=== PATIENT | female | born 1975 | race Caucasian/White ===

== ENCOUNTER 2019-06-08 08:40 | Emergency (ER) | payer MEDICAID, SELFPAY ==
[2019-06-08 08:42] VITALS: BP 171/140; PULSE 110; RESP 28; TEMP 36.8; O2SAT 95; BMI 42.9
--- NOTE | 2019-06-08 08:42 | ED_ITS ---
Documented by User: TYRONE Fulton 06/08/19 15:54 HPI - SOB/Dyspnea General: Chief Complaint: Shortness of Breath/Dyspnea Stated Complaint: SOB Time Seen by Provider: 06/08/19 08:42 Source: patient and family Mode of arrival: ambulatory Limitations: no limitations History of Present Illness: HPI Narrative: Patient is a 43-year-old female with a history of asthma, rheumatoid arthritis, lupus, and sarcoidosis who presents to ED today with complaints of a flare ; she states approximately a week ago she began having diffuse pain and thus went to her PCP for evaluation; they placed her on a 10-day prednisone taper (she takes 10 mg prednisone daily for her RA) and states over the weekend she felt like she was improving; patient states today she became very short of breath, started having substernal chest pain with radiation into her right chest and right arm; patient used albuterol nebulizer and albuterol inhaler without much relief MD elicited complaint: shortness of breath and cough Pertinent past history: asthma and other (Sarcoidosis) Onset (ago): hour(s) Timing: constant Severity: moderate Relieving factors: nothing Associated symptoms: Reports chest congestion and chest pain; Deny abdominal pain, fever(s), hemoptysis, lightheadedness, nausea, palpitations, syncope or vomiting Review of Systems Const: Denies: fever, chills, body aches, fatigue, malaise or night sweats Eyes: Denies: change in vision or blurry vision ENMT: Denies: enlarged tonsils or painful swallowing Card: Reports: chest pain, edema (chronic; no hx of CHF per patient) and shortness of breath on exertion; Denies: palpitations, irregular heart rhythm, lightheadedness, syncope or pre- syncope Resp: Reports: shortness of breath, non-productive cough, pain on inspiration and chest congestion; Denies: productive cough, wheezing, stridor, change in phlegm color or coughing up blood GI: Denies: abdominal pain, nausea, vomiting, heartburn/indigestion or diarrhea : Denies: flank pain, difficulty urinating, painful urination, urinary frequency, urinary urgency or urinary hesitancy Musc: Denies: neck pain, back pain or joint pain Skin/Breast: Denies: rash Neuro: Denies: headache, numbness in extremities, weakness in extremities, changes in sensation or lack of coordination PFSH ED PFSH: Statuses (acute, chronic, etc) shown below reflect problem list status as previously entered and may not be historically accurate Social History Smoking and tobacco status: former smoker Physical Exam Const: COMMON NORMALS: oriented x3, healthy appearing, alert and well nourished GENERAL APPEARANCE: anxious HENMT: COMMON NORMALS: normocephalic and head/scalp atraumatic HEAD & SCALP: normocephalic and atraumatic Neck/C-Spine: COMMON NORMALS: full ROM, no lymphadenopathy, supple and no meningeal signs Chest: COMMONS NORMALS: inspection of chest normal OTHER: reports TTP of anterior chest but states this does not reproduce pain; states this is common wi th her fibromyalgia Resp: COMMON NORMALS: clear to auscultation bilaterally EFFORT & INSPECTION: Yes tachypneic AUSCULTATION: clear to auscultation bilaterally Cardio: COMMON NORMALS: regular rhythm RATE: tachycardic RHYTHM: regular rhythm HEART SOUNDS: murmur GI: COMMON NORMALS: normal to inspection, nondistended, normoactive bowel sounds, soft to palpation, non-tender, no hepatosplenomegaly and no masses PALPATION: Yes soft and Yes no hepatosplenomegaly : COMMON NORMALS: Yes no CVA tenderness BLADDER/KIDNEY EXAM: Yes no CVA tenderness Back/Pelvis: COMMON NORMALS: no CVA tenderness and thoracic and lumbar spine normal to inspection Extremity: COMMON NORMALS: normal to inspection Neuro: COMMON NORMALS: oriented x3 SENSORIUM/ORIENTATION: Yes alert MENINGEAL SIGNS: Yes no meningeal signs Skin: COMMON NORMALS: no rashes or lesions noted GENERAL SKIN EXAM: no rashes or lesions noted Course Vital Signs: Vital signs: Vital Signs Temperature 98.3 F 06/08/19 08:42 Pulse Rate 107 H 06/08/19 13:48 Respiratory Rate 24 H 06/08/19 09:35 Blood Pressure 157/79 06/08/19 13:48 Pulse Oximetry 96 06/08/19 13:48 MDM - SOB/Dyspnea MDM Narrative: Medical decision making narrative: On patient's lab work she has an elevated lactate at 3.1, and elevated troponin of over 70 and she remains tachycardic; spoke to Dr. Butt who recommended we CTA patient-this was negative for PE; he will see and evaluate patient and speak to Dr. Mcgovern for possible admission Dr. Mcgovern recommends we transfer patient-Dr. Butt spoke to [facility] who doesn't have any beds currently but recommends/accepts ED to ED transfer Lab Data: Labs: Lab Results 06/08/19 06/08/19 06/08/19 Range/Units 08:55 08:55 08:55 WBC (4.0-10.0) 10^3/ uL RBC (4.1-5.3) 10^6/u L Hgb (11.5-15.3) g/dL Hct (37.0-47.0) % MCV (81-99) fL MCH (28.0-34.0) pg MCHC (30.0-36.0) g/dL RDW (12.1-15.1) % Plt Count (130-400) 10^3/c mm MPV (7.4-10.4) fL Neut % (Auto) % Lymph % (Auto) % [place] % (Auto) % Eos % (Auto) % Baso % (Auto) % Neut # (Auto) (1.8-7.7) 10^3/u L Lymph # (Auto) (0.8-4.8) 10^3/u L [place] # (Auto) (0.2-0.9) 10^3/u L Eos # (Auto) (0.0-0.8) 10^3/u L Baso # (Auto) (0.0-0.1) 10^3/u L Nucleated RBC % (a uto) % Nucleated RBCs # /100WBC Specimen Type ABG pH (7.35-7.45) ABG pCO2 (35-45) mmHg ABG pO2 (80.0-100.0) mmH g ABG HCO3 (22-26) mmol/L ABG O2 Saturation ABG Base Excess (-2.0-2.0) mmol/ L German Test A-a O2 Gradient (5-10) mmHg Hematocrit (37-47) % Hgb O2 Saturation (95-100) % Carboxyhemoglobin (0.4-20.1) %THgb Methemoglobin (0.4-1.5) % Total Hemoglobin (12-16) g/dL Ionized Calcium (1.1-1.4) mmol/L Executive Vice President And Chief Financial Officer ID Sodium 137 (136-145) mmol/L Potassium 3.8 (3.5-5.1) mmol/L Chloride 96 L (98-107) mmol/L Carbon Dioxide 25 (22-29) mmol/L Anion Gap 19.8 H (5-19) BUN 18 (6-20) mg/dL Creatinine 0.8 (0.5-0.9) mg/dL GFR Calculation 78.7 L (90-130) mL/min Glucose 211 H (74-109) mg/dL Lactate (0.5-2.2) mmol/L Calcium 10.5 (8.5-10.5) mg/dL Total Bilirubin 0.3 (0.15-1.2) mg/dL AST 20 (0-32) U/L ALT 27 (0-33) U/L Alkaline Phosphata se 60 (35-105) IU/L Troponin I 6 Hour (0-10) ng/L Troponin I Hi Sens Del (0-12) ng/L Troponin T Baselin e 73 H (0-10) ng/mL Troponin T 120 Min anvik (0-10) ng/mL Delta Troponin T (0-10) ABS# C-Reactive Protein 3.7 (0.0-4.9) mg/L NT-Pro-B Natriuret Pep (0-125) pg/mL Total Protein 7.5 (6.6-8.7) g/dL Albumin 4.7 (3.5-5.2) g/dL Globulin 2.8 (1.3-4.6) g/dL HCG, Qual Negative (Negative) Urine Color (Yellow) Urine Appearance (CLEAR) Urine pH (5-7) Ur Specific Gravit y (1.005-1.030) Urine Protein (Negative) Urine Glucose (UA) (Normal) Urine Ketones (Negative) Urine Occult Blood (Negative) Urine Nitrate (Negative) Urine Bilirubin (NEGATIVE) Urine Urobilinogen (Negative) mg/dL Ur Leukocyte Klaudia ase (Negative) Serum Ketones (Negative) Influenza Type A A g (Negative) POC Influenza B Ag (Negative) 06/08/19 06/08/19 06/08/19 Range/Units 08:55 08:55 09:12 WBC (4.0-10.0) 10^3/ uL RBC (4.1-5.3) 10^6/u L Hgb (11.5-15.3) g/dL Hct (37.0-47.0) % MCV (81-99) fL MCH (28.0-34.0) pg MCHC (30.0-36.0) g/dL RDW (12.1-15.1) % Plt Count (130-400) 10^3/c mm MPV (7.4-10.4) fL Neut % (Auto) % Lymph % (Auto) % [place] % (Auto) % Eos % (Auto) % Baso % (Auto) % Neut # (Auto) (1.8-7.7) 10^3/u L Lymph # (Auto) (0.8-4.8) 10^3/u L [place] # (Auto) (0.2-0.9) 10^3/u L Eos # (Auto) (0.0-0.8) 10^3/u L Baso # (Auto) (0.0-0.1) 10^3/u L Nucleated RBC % (a uto) % Nucleated RBCs # /100WBC Specimen Type Arterial ABG pH 7.52 H (7.35-7.45) ABG pCO2 30.5 L (35-45) mmHg ABG pO2 95.0 (80.0-100.0) mmH g ABG HCO3 25.0 (22-26) mmol/L ABG O2 Saturation 98.5 ABG Base Excess 2.8 H (-2.0-2.0) mmol/ L German Test Pos A-a O2 Gradient 15.1 H (5-10) mmHg Hematocrit 43.1 (37-47) % Hgb O2 Saturation 97.4 (95-100) % Carboxyhemoglobin 0.6 (0.4-20.1) %THgb Methemoglobin 0.5 (0.4-1.5) % Total Hemoglobin 14.1 (12-16) g/dL Ionized Calcium 1.2 (1.1-1.4) mmol/L Executive Vice President And Chief Financial Officer ID anonymous Sodium 140.0 (136-145) mmol/L Potassium 4.0 (3.5-5.1) mmol/L Chloride (98-107) mmol/L Carbon Dioxide (22-29) mmol/L Anion Gap (5-19) BUN (6-20) mg/dL Creatinine (0.5-0.9) mg/dL GFR Calculation (90-130) mL/min Glucose 215.0 H (74-109) mg/dL Lactate (0.5-2.2) mmol/L Calcium (8.5-10.5) mg/dL Total Bilirubin (0.15-1.2) mg/dL AST (0-32) U/L ALT (0-33) U/L Alkaline Phosphata se (35-105) IU/L Troponin I 6 Hour (0-10) ng/L Troponin I Hi Sens Del (0-12) ng/L Troponin T Baselin e (0-10) ng/mL Troponin T 120 Min anvik (0-10) ng/mL Delta Troponin T (0-10) ABS# C-Reactive Protein (0.0-4.9) mg/L NT-Pro-B Natriuret Pep 144 H (0-125) pg/mL Total Protein (6.6-8.7) g/dL Albumin (3.5-5.2) g/dL Globulin (1.3-4.6) g/dL HCG, Qual (Negative) Urine Color (Yellow) Urine Appearance (CLEAR) Urine pH (5-7) Ur Specific Gravit y (1.005-1.030) Urine Protein (Negative) Urine Glucose (UA) (Normal) Urine Ketones (Negative) Urine Occult Blood (Negative) Urine Nitrate (Negative) Urine Bilirubin (NEGATIVE) Urine Urobilinogen (Negative) mg/dL Ur Leukocyte Klaudia ase (Negative) Serum Ketones Negative (Negative) Influenza Type A A g (Negative) POC Influenza B Ag (Negative) 06/08/19 06/08/19 06/08/19 Range/Units 09:26 09:27 09:27 WBC 13.2 H (4.0-10.0) 10^3/ uL RBC 4.82 (4.1-5.3) 10^6/u L Hgb 13.5 (11.5-15.3) g/dL Hct 43.0 (37.0-47.0) % MCV 89.2 (81-99) fL MCH 28.0 (28.0-34.0) pg MCHC 31.4 (30.0-36.0) g/dL RDW 14.6 (12.1-15.1) % Plt Count 432 H (130-400) 10^3/c mm MPV 8.9 (7.4-10.4) fL Neut % (Auto) 81.1 % Lymph % (Auto) 9.3 % [place] % (Auto) 6.5 % Eos % (Auto) 0.6 % Baso % (Auto) 0.4 % Neut # (Auto) 10.7 H (1.8-7.7) 10^3/u L Lymph # (Auto) 1.2 (0.8-4.8) 10^3/u L [place] # (Auto) 0.9 (0.2-0.9) 10^3/u L Eos # (Auto) 0.1 (0.0-0.8) 10^3/u L Baso # (Auto) 0.1 (0.0-0.1) 10^3/u L Nucleated RBC % (a uto) 0 % Nucleated RBCs # 0.0 /100WBC Specimen Type ABG pH (7.35-7.45) ABG pCO2 (35-45) mmHg ABG pO2 (80.0-100.0) mmH g ABG HCO3 (22-26) mmol/L ABG O2 Saturation ABG Base Excess (-2.0-2.0) mmol/ L German Test A-a O2 Gradient (5-10) mmHg Hematocrit (37-47) % Hgb O2 Saturation (95-100) % Carboxyhemoglobin (0.4-20.1) %THgb Methemoglobin (0.4-1.5) % Total Hemoglobin (12-16) g/dL Ionized Calcium (1.1-1.4) mmol/L Executive Vice President And Chief Financial Officer ID Sodium (136-145) mmol/L Potassium (3.5-5.1) mmol/L Chloride (98-107) mmol/L Carbon Dioxide (22-29) mmol/L Anion Gap (5-19) BUN (6-20) mg/dL Creatinine (0.5-0.9) mg/dL GFR Calculation (90-130) mL/min Glucose (74-109) mg/dL Lactate 3.1 H (0.5-2.2) mmol/L Calcium (8.5-10.5) mg/dL Total Bilirubin (0.15-1.2) mg/dL AST (0-32) U/L ALT (0-33) U/L Alkaline Phosphata se (35-105) IU/L Troponin I 6 Hour (0-10) ng/L Troponin I Hi Sens Del (0-12) ng/L Troponin T Baselin e (0-10) ng/mL Troponin T 120 Min [place]vik (0-10) ng/mL Delta Troponin T (0-10) ABS# C-Reactive Protein (0.0-4.9) mg/L NT-Pro-B Natriuret Pep (0-125) pg/mL Total Protein (6.6-8.7) g/dL Albumin (3.5-5.2) g/dL Globulin (1.3-4.6) g/dL HCG, Qual (Negative) Urine Color (Yellow) Urine Appearance (CLEAR) Urine pH (5-7) Ur Specific Gravit y (1.005-1.030) Urine Protein (Negative) Urine Glucose (UA) (Normal) Urine Ketones (Negative) Urine Occult Blood (Negative) Urine Nitrate (Negative) Urine Bilirubin (NEGATIVE) Urine Urobilinogen (Negative) mg/dL Ur Leukocyte Klaudia ase (Negative) Serum Ketones (Negative) Influenza Type A A g Negative (Negative) POC Influenza B Ag Negative (Negative) 06/08/19 06/08/19 06/08/19 Range/Units 10:57 12:30 15:03 WBC (4.0-10.0) 10^3/ uL RBC (4.1-5.3) 10^6/u L Hgb (11.5-15.3) g/dL Hct (37.0-47.0) % MCV (81-99) fL MCH (28.0-34.0) pg MCHC (30.0-36.0) g/dL RDW (12.1-15.1) % Plt Count (130-400) 10^3/c mm MPV (7.4-10.4) fL Neut % (Auto) % Lymph % (Auto) % [place] % (Auto) % Eos % (Auto) % Baso % (Auto) % Neut # (Auto) (1.8-7.7) 10^3/u L Lymph # (Auto) (0.8-4.8) 10^3/u L [place] # (Auto) (0.2-0.9) 10^3/u L Eos # (Auto) (0.0-0.8) 10^3/u L Baso # (Auto) (0.0-0.1) 10^3/u L Nucleated RBC % (a uto) % Nucleated RBCs # /100WBC Specimen Type ABG pH (7.35-7.45) ABG pCO2 (35-45) mmHg ABG pO2 (80.0-100.0) mmH g ABG HCO3 (22-26) mmol/L ABG O2 Saturation ABG Base Excess (-2.0-2.0) mmol/ L German Test A-a O2 Gradient (5-10) mmHg Hematocrit (37-47) % Hgb O2 Saturation (95-100) % Carboxyhemoglobin (0.4-20.1) %THgb Methemoglobin (0.4-1.5) % Total Hemoglobin (12-16) g/dL Ionized Calcium (1.1-1.4) mmol/L Executive Vice President And Chief Financial Officer ID Sodium (136-145) mmol/L Potassium (3.5-5.1) mmol/L Chloride (98-107) mmol/L Carbon Dioxide (22-29) mmol/L Anion Gap (5-19) BUN (6-20) mg/dL Creatinine (0.5-0.9) mg/dL GFR Calculation (90-130) mL/min Glucose (74-109) mg/dL Lactate (0.5-2.2) mmol/L Calcium (8.5-10.5) mg/dL Total Bilirubin (0.15-1.2) mg/dL AST (0-32) U/L ALT (0-33) U/L Alkaline Phosphata se (35-105) IU/L Troponin I 6 Hour 53.85 H (0-10) ng/L Troponin I Hi Sens Del -19.15 L (0-12) ng/L Troponin T Baselin e (0-10) ng/mL Troponin T 120 Min anvik 65.15 H (0-10) ng/mL Delta Troponin T -7.85 L (0-10) ABS# C-Reactive Protein (0.0-4.9) mg/L NT-Pro-B Natriuret Pep (0-125) pg/mL Total Protein (6.6-8.7) g/dL Albumin (3.5-5.2) g/dL Globulin (1.3-4.6) g/dL HCG, Qual (Negative) Urine Color Yellow (Yellow) Urine Appearance Clear (CLEAR) Urine pH 7 (5-7) Ur Specific Gravit y 1.005 (1.005-1.030) Urine Protein Neg (Negative) Urine Glucose (UA) Norm (Normal) Urine Ketones Negative (Negative) Urine Occult Blood Neg (Negative) Urine Nitrate Negative (Negative) Urine Bilirubin Neg (NEGATIVE) Urine Urobilinogen Norm (Negative) mg/dL Ur Leukocyte Klaudia ase Negative (Negative) Serum Ketones (Negative) Influenza Type A A g (Negative) POC Influenza B Ag (Negative) Imaging Data^: CXR: Radiologist's impression: [place] [address] XRay Report Signed Patient: Fariha Beard Unit #: [id number] : 1975 Age/Sex: 43 / F ADM Date: 06/08/19 Loc: ER Room/Bed: Attending Dr: Ordering Provider/Ordering MD: Reanna Amin Date of Service: 06/08/19 Procedure(s): XR chest 1V portable [id number] Accession Number(s): [id number] Report Number: [id number] PROCEDURE INFORMATION: Exam: XR Chest, 1 View Exam date and time: 06/08/2019 10:03 AM Age: 43 years old Clinical indication: Cough; Patient HX: Chest pain, hard to breath; Additional info: Cough/congestion TECHNIQUE: Imaging protocol: XR of the chest Views: 1 view. COMPARISON: CR Chest 1 [place] [id number] 01/22/2019 12:56 PM FINDINGS: Lungs: Unremarkable. No consolidation. Pleural space: Unremarkable. No pleural effusion. No pneumothorax. Heart/Mediastinum: Unremarkable. No cardiomegaly. Bones/joints: No acute findings. XR/XR chest 1V portable [id number] IMPRESSION: No acute findings. Dictated By: Raul Brody MD Signed By: Raul Brody MD Signed Date/Time: 06/08/19 1057 DD/ 105 CTA Chest: Radiologist's impression: [address] [place] [address] CT Scan Report Signed Patient: Fariha Beard Unit #: [id number] : 1975 Age/Sex: 43 / F ADM Date: 06/08/19 Loc: ER Room/Bed: Attending Dr: Ordering Provider/Ordering MD: Socorro Butt [place], [facility] [place] of Service: 06/08/19 Procedure(s): CT angio chest PE protcl [id number] Accession Number(s): [id number] Report Number: [id number] WS: [id number] CTA OF THE CHEST WITH PULMONARY EMBOLISM PROTOCOL TECHNIQUE: High-resolution contrast enhanced CTA of the chest with coronal and sagittal reformatted images with pulmonary embolism protocol. MIP images are also reviewed. CLINICAL INFORMATION: SOB, high pretest prob COMPARISON: None. DLP: 485.[address] scans at [facility] use at least one of these dose optimization techniques: automated exposure control; mA and/or kV adjustment per patient size (includes targeted exams where dose is matched to clinical indication); or iterative reconstruction. FINDINGS: Images suboptimal due to body habitus. Proximal main pulmonary arteries are normal. No visualized filling defects. No evidence of pulmonary embolus. Normal caliber thoracic aorta. Normal endobronchial tree. No mediastinal or hilar lymphadenopathy. Upper abdominal aorta is normal. Lungs are well aerated. Slight bibasilar atelectasis. Several noncalcified clustered nodules in the right upper lobe laterally the largest measuring 6 mm. Additional noncalcified nodule in the right upper lobe anteriorly adjacent to the heart measuring 5 mm. Otherwise no acute pulmonary infiltrates. No axillary lymphadenopathy. Adrenal glands are normal. Notified Socorro Butt MD [facility] at 06/08/2019 12:[address]/CT angio chest PE protcl [id number] IMPRESSION: 1. Proximal main pulmonary arteries are normal. No evidence of pulmonary embolus. 2. Normal caliber thoracic aorta. 3. Nodular infiltrate in right upper lobe with the largest nodule measuring 6 mm. Additional noncalcified nodule in the anterior right upper lobe adjacent to the heart. These may be related to patient's history of sarcoidosis. Recommend 3-[address] follow-up Dictated By: Stephen Harper MD Signed By: Stephen Harper MD Signed Date/Time: 06/08/191258 DD/ 125 Discharge Plan Discharge Patient Disposition: Transfer to ED Clinical Impression: Dyspnea on exertion, Elevated troponin Chest pain Qualifiers: Chest pain type: precordial pain Qualified Code(s): R07.2 - Precordial pain Condition: Stable Prescriptions: No Action Multiple Vitamins Tablet 1 tab PO DAILY RF: 0 prednisone 20 mg Tablet See Rx Instructions .ROUTE .COMPLEX RF: 0 prednisone 5 mg Tablet 10 mg PO QAM RF: 0 potassium chloride 10 mEq Tablet Extended Release 10 meq PO DAILY PRN (Reason: unknown) RF: 0 azathioprine 50 mg Tablet See Rx Instructions .ROUTE .COMPLEX RF: 0 omeprazole 40 mg Capsule,Delayed Release(Dr/Ec) 40 mg PO DAILY RF: 0 Aspir-81 81 mg Tablet,Delayed Release (Dr/Ec) 81 mg PO DAILY RF: 0 tramadol 50 mg Tablet 50 mg PO Q6H PRN (Reason: Pain) RF: 0 lisinopril 30 mg Tablet 30 mg PO DAILY RF: 0 Lidocaine Viscous 2 % Solution See Rx Instructions .ROUTE .COMPLEX RF: 0 vitamin B complex Tablet 1 tab PO DAILY RF: 0 acyclovir 200 mg Capsule 200 mg PO TID PRN (Reason: unknown) RF: 0 hydrochlorothiazide 25 mg Tablet 25 mg PO DAILY RF: 0 mupirocin 2 % Ointment 1 applic TOPICAL PRN RF: 0 Lasix 20 mg Tablet 20 mg PO DAILY PRN (Reason: Edema) RF: 0 gabapentin 100 mg Capsule 200 mg PO TID RF: 0 epinephrine 0.3 mg/0.3 mL auto-injector See Rx Instructions .ROUTE .COMPLEX RF: 0 Novolog Flexpen U-100 Insulin 100 unit/mL (3 mL) Insulin Pen See Rx Instructions .ROUTE .COMPLEX RF: 0 rosuvastatin 10 mg Tablet 10 mg PO DAILY RF: 0 Cymbalta 30 mg Capsule,Delayed Release(Dr/Ec) 90 mg PO DAILY RF: 0 Lantus Solostar U-100 Insulin 100 unit/mL (3 mL) Insulin Pen 50 unit SUBCUT DAILY RF: 0 Vitamin D3 125 mcg (5,000 unit) Tablet 15,000 unit PO DAILY RF: 0 Victoza 3-Tariq 0.6 mg/0.1 mL (18 mg/3 mL) Pen Injector 1.8 mg SUBCUT DAILY RF: 0 Vitamin B-12 5,000 mcg Tablet, Sublingual 5,000 mcg SUBLINGUAL DAILY RF: 0 Calcium 600 with Vitamin D3 600 mg(1,500mg) -500 unit Capsule 1 cap PO DAILY RF: 0 Humira(CF) Pen 40 mg/0.4 mL Pen Injector Kit 40 mg SUBCUT Q14D RF: 0 Discharge Orders: Discharge Order (Routine); Ordered 06/08/19 Ordered By: Socorro Butt Referrals: Katy Holm NP [Family Provider] - Coding Level of Care Code ED Traveling Passenger Agent for Chg Fwd Documented by User: Socorro Butt MD, [facility] 06/08/19 15:41 HPI - SOB/Dyspnea General: Chief Complaint: Shortness of Breath/Dyspnea Stated Complaint: SOB Time Seen by Provider: 06/08/19 08:42 [facility] PFSH: Statuses (acute, chronic, etc) shown below reflect problem list status as previously entered and may not be historically accurate Social History Smoking and tobacco status: former smoker Course Consultations: Consultation #1: Discussed with emergency department physician at [facility], Dr. Gilliam, she kindly accepted the patient to her service. Time: 15:32 Vital Signs: Vital signs: Vital Signs Temperature 98.3 F 06/08/19 08:42 Pulse Rate 107 H 06/08/19 13:48 Respiratory Rate 24 H 06/08/19 09:35 Blood Pressure 157/79 06/08/19 13:48 Pulse Oximetry 96 06/08/19 13:48 MDM - SOB/Dyspnea MDM Narrative: Medical decision making narrative: 43-year-old female patient with multiple rheumatologic illnesses including rheumatoid arthritis, systemic lupus erythematosus, sarcoidosis and diabetes mellitus who presented to the emergency department with chest pain and shortness of breath. She has elevated baseline troponin and the 2-hour delta was 7. She had severe dyspnea on exertion here in the emergency department and I am concerned that she has a cardiac cause of her symptoms. CTA was negative for a PE or acute pulmonary illness. The hospitalist in this facility was not comfortable taking the patient as he believes she needs to be evaluated by book or script editor. She is therefore transferred to [facility] emergency department for fur ther evaluation. Medical Records: Attestation: I reviewed the patient's medical records. Lab Data: Attestation: I reviewed the patient's lab results. Labs: Lab Results 06/08/19 06/08/19 06/08/19 Range/Units 08:55 08:55 08:55 WBC (4.0-10.0) 10^3/ uL RBC (4.1-5.3) 10^6/u L Hgb (11.5-15.3) g/dL Hct (37.0-47.0) % MCV (81-99) fL MCH (28.0-34.0) pg MCHC (30.0-36.0) g/dL RDW (12.1-15.1) % Plt Count (130-400) 10^3/c mm MPV (7.4-10.4) fL Neut % (Auto) % Lymph % (Auto) % [place] % (Auto) % Eos % (Auto) % Baso % (Auto) % Neut # (Auto) (1.8-7.7) 10^3/u L Lymph # (Auto) (0.8-4.8) 10^3/u L [place] # (Auto) (0.2-0.9) 10^3/u L Eos # (Auto) (0.0-0.8) 10^3/u L Baso # (Auto) (0.0-0.1) 10^3/u L Nucleated RBC % (a uto) % Nucleated RBCs # /100WBC Specimen Type ABG pH (7.35-7.45) ABG pCO2 (35-45) mmHg ABG pO2 (80.0-100.0) mmH g ABG HCO3 (22-26) mmol/L ABG O2 Saturation ABG Base Excess (-2.0-2.0) mmol/ L German Test A-a O2 Gradient (5-10) mmHg Hematocrit (37-47) % Hgb O2 Saturation (95-100) % Carboxyhemoglobin (0.4-20.1) %THgb Methemoglobin (0.4-1.5) % Total Hemoglobin (12-16) g/dL Ionized Calcium (1.1-1.4) mmol/L Executive Vice President And Chief Financial Officer ID Sodium 137 (136-145) mmol/L Potassium 3.8 (3.5-5.1) mmol/L Chloride 96 L (98-107) mmol/L Carbon Dioxide 25 (22-29) mmol/L Anion Gap 19.8 H (5-19) BUN 18 (6-20) mg/dL Creatinine 0.8 (0.5-0.9) mg/dL GFR Calculation 78.7 L (90-130) mL/min Glucose 211 H (74-109) mg/dL Lactate (0.5-2.2) mmol/L Calcium 10.5 (8.5-10.5) mg/dL Total Bilirubin 0.3 (0.15-1.2) mg/dL AST 20 (0-32) U/L ALT 27 (0-33) U/L Alkaline Phosphata se 60 (35-105) IU/L Troponin I 6 Hour (0-10) ng/L Troponin I Hi Sens Del (0-12) ng/L Troponin T Baselin e 73 H (0-10) ng/mL Troponin T 120 Min [place] (0-10) ng/mL Delta Troponin T (0-10) ABS# C-Reactive Protein 3.7 (0.0-4.9) mg/L NT-Pro-B Natriuret Pep (0-125) pg/mL Total Protein 7.5 (6.6-8.7) g/dL Albumin 4.7 (3.5-5.2) g/dL Globulin 2.8 (1.3-4.6) g/dL HCG, Qual Negative (Negative) Urine Color (Yellow) Urine Appearance (CLEAR) Urine pH (5-7) Ur Specific Gravit y (1.005-1.030) Urine Protein (Negative) Urine Glucose (UA) (Normal) Urine Ketones (Negative) Urine Occult Blood (Negative) Urine Nitrate (Negative) Urine Bilirubin (NEGATIVE) Urine Urobilinogen (Negative) mg/dL Ur Leukocyte Klaudia ase (Negative) Serum Ketones (Negative) Influenza Type A A g (Negative) POC Influenza B Ag (Negative) 06/08/19 06/08/19 06/08/19 Range/Units 08:55 08:55 09:12 WBC (4.0-10.0) 10^3/ uL RBC (4.1-5.3) 10^6/u L Hgb (11.5-15.3) g/dL Hct (37.0-47.0) % MCV (81-99) fL MCH (28.0-34.0) pg MCHC (30.0-36.0) g/dL RDW (12.1-15.1) % Plt Count (130-400) 10^3/c mm MPV (7.4-10.4) fL Neut % (Auto) % Lymph % (Auto) % [place] % (Auto) % Eos % (Auto) % Baso % (Auto) % Neut # (Auto) (1.8-7.7) 10^3/u L Lymph # (Auto) (0.8-4.8) 10^3/u L [place] # (Auto) (0.2-0.9) 10^3/u L Eos # (Auto) (0.0-0.8) 10^3/u L Baso # (Auto) (0.0-0.1) 10^3/u L Nucleated RBC % (a uto) % Nucleated RBCs # /100WBC Specimen Type Arterial ABG pH 7.52 H (7.35-7.45) ABG pCO2 30.5 L (35-45) mmHg ABG pO2 95.0 (80.0-100.0) mmH g ABG HCO3 25.0 (22-26) mmol/L ABG O2 Saturation 98.5 ABG Base Excess 2.8 H (-2.0-2.0) mmol/ L German Test Pos A-a O2 Gradient 15.1 H (5-10) mmHg Hematocrit 43.1 (37-47) % Hgb O2 Saturation 97.4 (95-100) % Carboxyhemoglobin 0.6 (0.4-20.1) %THgb Methemoglobin 0.5 (0.4-1.5) % Total Hemoglobin 14.1 (12-16) g/dL Ionized Calcium 1.2 (1.1-1.4) mmol/L Executive Vice President And Chief Financial Officer ID anonymous Sodium 140.0 (136-145) mmol/L Potassium 4.0 (3.5-5.1) mmol/L Chloride (98-107) mmol/L Carbon Dioxide (22-29) mmol/L Anion Gap (5-19) BUN (6-20) mg/dL Creatinine (0.5-0.9) mg/dL GFR Calculation (90-130) mL/min Glucose 215.0 H (74-109) mg/dL Lactate (0.5-2.2) mmol/L Calcium (8.5-10.5) mg/dL Total Bilirubin (0.15-1.2) mg/dL AST (0-32) U/L ALT (0-33) U/L Alkaline Phosphata se (35-105) IU/L Troponin I 6 Hour (0-10) ng/L Troponin I Hi Sens Del (0-12) ng/L Troponin T Baselin e (0-10) ng/mL Troponin T 120 Min [place] (0-10) ng/mL Delta Troponin T (0-10) ABS# C-Reactive Protein (0.0-4.9) mg/L NT-Pro-B Natriuret Pep 144 H (0-125) pg/mL Total Protein (6.6-8.7) g/dL Albumin (3.5-5.2) g/dL Globulin (1.3-4.6) g/dL HCG, Qual (Negative) Urine Color (Yellow) Urine Appearance (CLEAR) Urine pH (5-7) Ur Specific Gravit y (1.005-1.030) Urine Protein (Negative) Urine Glucose (UA) (Normal) Urine Ketones (Negative) Urine Occult Blood (Negative) Urine Nitrate (Negative) Urine Bilirubin (NEGATIVE) Urine Urobilinogen (Negative) mg/dL Ur Leukocyte Klaudia ase (Negative) Serum Ketones Negative (Negative) Influenza Type A A g (Negative) POC Influenza B Ag (Negative) 06/08/19 06/08/19 06/08/19 Range/Units 09:26 09:27 09:27 WBC 13.2 H (4.0-10.0) 10^3/ uL RBC 4.82 (4.1-5.3) 10^6/u L Hgb 13.5 (11.5-15.3) g/dL Hct 43.0 (37.0-47.0) % MCV 89.2 (81-99) fL MCH 28.0 (28.0-34.0) pg MCHC 31.4 (30.0-36.0) g/dL RDW 14.6 (12.1-15.1) % Plt Count 432 H (130-400) 10^3/c mm MPV 8.9 (7.4-10.4) fL Neut % (Auto) 81.1 % Lymph % (Auto) 9.3 % [place] % (Auto) 6.5 % Eos % (Auto) 0.6 % Baso % (Auto) 0.4 % Neut # (Auto) 10.7 H (1.8-7.7) 10^3/u L Lymph # (Auto) 1.2 (0.8-4.8) 10^3/u L [place] # (Auto) 0.9 (0.2-0.9) 10^3/u L Eos # (Auto) 0.1 (0.0-0.8) 10^3/u L Baso # (Auto) 0.1 (0.0-0.1) 10^3/u L Nucleated RBC % (a uto) 0 % Nucleated RBCs # 0.0 /100WBC Specimen Type ABG pH (7.35-7.45) ABG pCO2 (35-45) mmHg ABG pO2 (80.0-100.0) mmH g ABG HCO3 (22-26) mmol/L ABG O2 Saturation ABG Base Excess (-2.0-2.0) mmol/ L German Test A-a O2 Gradient (5-10) mmHg Hematocrit (37-47) % Hgb O2 Saturation (95-100) % Carboxyhemoglobin (0.4-20.1) %THgb Methemoglobin (0.4-1.5) % Total Hemoglobin (12-16) g/dL Ionized Calcium (1.1-1.4) mmol/L Executive Vice President And Chief Financial Officer ID Sodium (136-145) mmol/L Potassium (3.5-5.1) mmol/L Chloride (98-107) mmol/L Carbon Dioxide (22-29) mmol/L Anion Gap (5-19) BUN (6-20) mg/dL Creatinine (0.5-0.9) mg/dL GFR Calculation (90-130) mL/min Glucose (74-109) mg/dL Lactate 3.1 H (0.5-2.2) mmol/L Calcium (8.5-10.5) mg/dL Total Bilirubin (0.15-1.2) mg/dL AST (0-32) U/L ALT (0-33) U/L Alkaline Phosphata se (35-105) IU/L Troponin I 6 Hour (0-10) ng/L Troponin I Hi Sens Del (0-12) ng/L Troponin T Baselin e (0-10) ng/mL Troponin T 120 Min [place] (0-10) ng/mL Delta Troponin T (0-10) ABS# C-Reactive Protein (0.0-4.9) mg/L NT-Pro-B Natriuret Pep (0-125) pg/mL Total Protein (6.6-8.7) g/dL Albumin (3.5-5.2) g/dL Globulin (1.3-4.6) g/dL HCG, Qual (Negative) Urine Color (Yellow) Urine Appearance (CLEAR) Urine pH (5-7) Ur Specific Gravit y (1.005-1.030) Urine Protein (Negative) Urine Glucose (UA) (Normal) Urine Ketones (Negative) Urine Occult Blood (Negative) Urine Nitrate (Negative) Urine Bilirubin (NEGATIVE) Urine Urobilinogen (Negative) mg/dL Ur Leukocyte Klaudia ase (Negative) Serum Ketones (Negative) Influenza Type A A g Negative (Negative) POC Influenza B Ag Negative (Negative) 06/08/19 06/08/19 06/08/19 Range/Units 10:57 12:30 15:03 WBC (4.0-10.0) 10^3/ uL RBC (4.1-5.3) 10^6/u L Hgb (11.5-15.3) g/dL Hct (37.0-47.0) % MCV (81-99) fL MCH (28.0-34.0) pg MCHC (30.0-36.0) g/dL RDW (12.1-15.1) % Plt Count (130-400) 10^3/c mm MPV (7.4-10.4) fL Neut % (Auto) % Lymph % (Auto) % [place] % (Auto) % Eos % (Auto) % Baso % (Auto) % Neut # (Auto) (1.8-7.7) 10^3/u L Lymph # (Auto) (0.8-4.8) 10^3/u L [place] # (Auto) (0.2-0.9) 10^3/u L Eos # (Auto) (0.0-0.8) 10^3/u L Baso # (Auto) (0.0-0.1) 10^3/u L Nucleated RBC % (a uto) % Nucleated RBCs # /100WBC Specimen Type ABG pH (7.35-7.45) ABG pCO2 (35-45) mmHg ABG pO2 (80.0-100.0) mmH g ABG HCO3 (22-26) mmol/L ABG O2 Saturation ABG Base Excess (-2.0-2.0) mmol/ L German Test A-a O2 Gradient (5-10) mmHg Hematocrit (37-47) % Hgb O2 Saturation (95-100) % Carboxyhemoglobin (0.4-20.1) %THgb Methemoglobin (0.4-1.5) % Total Hemoglobin (12-16) g/dL Ionized Calcium (1.1-1.4) mmol/L Executive Vice President And Chief Financial Officer ID Sodium (136-145) mmol/L Potassium (3.5-5.1) mmol/L Chloride (98-107) mmol/L Carbon Dioxide (22-29) mmol/L Anion Gap (5-19) BUN (6-20) mg/dL Creatinine (0.5-0.9) mg/dL GFR Calculation (90-130) mL/min Glucose (74-109) mg/dL Lactate (0.5-2.2) mmol/L Calcium (8.5-10.5) mg/dL Total Bilirubin (0.15-1.2) mg/dL AST (0-32) U/L ALT (0-33) U/L Alkaline Phosphata se (35-105) IU/L Troponin I 6 Hour 53.85 H (0-10) ng/L Troponin I Hi Sens Del -19.15 L (0-12) ng/L Troponin T Baselin e (0-10) ng/mL Troponin T 120 Min [place] 65.15 H (0-10) ng/mL Delta Troponin T -7.85 L (0-10) ABS# C-Reactive Protein (0.0-4.9) mg/L NT-Pro-B Natriuret Pep (0-125) pg/mL Total Protein (6.6-8.7) g/dL Albumin (3.5-5.2) g/dL Globulin (1.3-4.6) g/dL HCG, Qual (Negative) Urine Color Yellow (Yellow) Urine Appearance Clear (CLEAR) Urine pH 7 (5-7) Ur Specific Gravit y 1.005 (1.005-1.030) Urine Protein Neg (Negative) Urine Glucose (UA) Norm (Normal) Urine Ketones Negative (Negative) Urine Occult Blood Neg (Negative) Urine Nitrate Negative (Negative) Urine Bilirubin Neg (NEGATIVE) Urine Urobilinogen Norm (Negative) mg/dL Ur Leukocyte Klaudia ase Negative (Negative) Serum Ketones (Negative) Influenza Type A A g (Negative) POC Influenza B Ag (Negative) Imaging Data^: CTA Chest: Radiologist's impression: [place] [address] CT Scan Report Signed Patient: Becky Beard #: [id number] : 1975Acct#:[id number] Age/Sex: 43 / FADM Date: 06/08/19 [facility]: Attending Dr: Ordering Provider/Ordering MD: Socorro Butt [place], [facility] [place] Service: 06/08/19 Procedure(s): CT angio chest PE protcl [id number] Accession Number(s): [id number] Report Number: [id number] WS: [id number] CTA OF THE CHEST WITH PULMONARY EMBOLISM PROTOCOL TECHNIQUE: High-resolution contrast enhanced CTA of the chest with coronal and s agittal reformatted images with pulmonary embolism protocol. MIP images are also reviewed. CLINICAL INFORMATION: SOB, high pretest prob COMPARISON: None. DLP: 485.[address] scans at [facility] use at least one of these dose optimization techniques: automated exposure control; mA and/or kV adjustment per patient size (includes targeted exams where dose is matched to clinical ind ication); or iterative reconstruction. FINDINGS: Images suboptimal due to body habitus. Proximal main pulmonary arteries are normal. No visualized filling defects. No evidence of pulmonary embolus. Normal caliber thoracic aorta. Normal endobronchial tree. No mediastinal or hilar lymphadenopathy. Upper abdominal aorta is normal. Lungs are well aerated. Slight bibasilar atelectasis. Several noncalcified clustered nodules in the right upper lobe laterally the largest measuring 6 mm. Additional noncalcified nodule in the right upper lobe anteriorly adjacent to the heart measuring 5 mm. Otherwise no acute pulmonary infiltrates. No axillary lymphadenopathy. Adrenal glands are normal. Notified Socorro Butt MD MSM at 06/08/2019 12:[address]/CT angio chest PE protcl [id number] IMPRESSION: 1. Proximal main pulmonary arteries are normal. No evidence of pulmonary embolus. 2. Normal caliber thoracic aorta. 3. Nodular infiltrate in right upper lobe with the largest nodule measuring 6 mm. Additional noncalcified nodule in the anterior right upper lobe adjacent to the heart. These may be related to patient's history of sarcoidosis. Recommend 3-[address] follow-up Dictated By:Stephen Harper MD Signed By:Stephen Harperigned Date/Time:06/08/19 1251 Discharge Plan Discharge Patient Disposition: Transfer to ED Clinical Impression: Dyspnea on exertion, Elevated troponin Chest pain Qualifiers: Chest pain type: precordial pain Qualified Code(s): R07.2 - Precordial pain Condition: Stable Prescriptions: No Action Multiple Vitamins Tablet 1 tab PO DAILY RF: 0 prednisone 20 mg Tablet See Rx Instructions .ROUTE .COMPLEX RF: 0 prednisone 5 mg Tablet 10 mg PO QAM RF: 0 potassium chloride 10 mEq Tablet Extended Release 10 meq PO DAILY PRN (Reason: unknown) RF: 0 azathioprine 50 mg Tablet See Rx Instructions .ROUTE .COMPLEX RF: 0 omeprazole 40 mg Capsule,Delayed Release(Dr/Ec) 40 mg PO DAILY RF: 0 Aspir-81 81 mg Tablet,Delayed Release (Dr/Ec) 81 mg PO DAILY RF: 0 tramadol 50 mg Tablet 50 mg PO Q6H PRN (Reason: Pain) RF: 0 lisinopril 30 mg Tablet 30 mg PO DAILY RF: 0 Lidocaine Viscous 2 % Solution See Rx Instructions .ROUTE .COMPLEX RF: 0 vitamin B complex Tablet 1 tab PO DAILY RF: 0 acyclovir 200 mg Capsule 200 mg PO TID PRN (Reason: unknown) RF: 0 hydrochlorothiazide 25 mg Tablet 25 mg PO DAILY RF: 0 mupirocin 2 % Ointment 1 applic TOPICAL PRN RF: 0 Lasix 20 mg Tablet 20 mg PO DAILY PRN (Reason: Edema) RF: 0 gabapentin 100 mg Capsule 200 mg PO TID RF: 0 epinephrine 0.3 mg/0.3 mL auto-injector See Rx Instructions .ROUTE .COMPLEX RF: 0 Novolog Flexpen U-100 Insulin 100 unit/mL (3 mL) Insulin Pen See Rx Instructions .ROUTE .COMPLEX RF: 0 rosuvastatin 10 mg Tablet 10 mg PO DAILY RF: 0 Cymbalta 30 mg Capsule,Delayed Release(Dr/Ec) 90 mg PO DAILY RF: 0 Lantus Solostar U-100 Insulin 100 unit/mL (3 mL) Insulin Pen 50 unit SUBCUT DAILY RF: 0 Vitamin D3 125 mcg (5,000 unit) Tablet 15,000 unit PO DAILY RF: 0 Victoza 3-Tariq 0.6 mg/0.1 mL (18 mg/3 mL) Pen Injector 1.8 mg SUBCUT DAILY RF: 0 Vitamin B-12 5,000 mcg Tablet, Sublingual 5,000 mcg SUBLINGUAL DAILY RF: 0 Calcium 600 with Vitamin D3 600 mg(1,500mg) -500 unit Capsule 1 cap PO DAILY RF: 0 Humira(CF) Pen 40 mg/0.4 mL Pen Injector Kit 40 mg SUBCUT Q14D RF: 0 Discharge Orders: Discharge Order (Routine); Ordered 06/08/19 Ordered By: Socorro Butt Referrals: Katy Holm NP [Family Provider] - Coding Level of Care Code ED Traveling Passenger Agent for Chg Av
--- NOTE | 2019-06-08 09:02 | ECG_ITS ---
Measurements Intervals [place] Rate: 104 P: 43 MT: 163 QRS: 7 QRSD: 88 T: 148 QT: 319 QTc: 420 SINUS TACHYCARDIA LEFT VENTRICULAR HYPERTROPHY AND ST-T CHANGE [VOLTAGE CRITERIA PLUS ST/T ABNORMALITY] Compared to ECG 08/22/2018 11:41:47 Left ventricular hypertrophy now present ST (T wave) deviation now present Sinus rhythm no longer present T-wave abnormality no longer present Possible ischemia no longer present Electronically Signed On 06-08-2019 18:33:16 LPTA by Shanita Parry M.D. [id number]
--- NOTE | 2019-06-08 09:02 | XRR_ITS ---
PROCEDURE INFORMATION: Exam: XR Chest, 1 View Exam date and time: 06/08/2019 10:03 AM Age: 43 years old Clinical indication: Cough; Patient HX: Chest pain, hard to breath; Additional info: Cough/congestion TECHNIQUE: Imaging protocol: XR of the chest Views: 1 view. COMPARISON: CR Chest 1 [place] [id number] 01/22/2019 12:56 PM FINDINGS: Lungs: Unremarkable. No consolidation. Pleural space: Unremarkable. No pleural effusion. No pneumothorax. Heart/Mediastinum: Unremarkable. No cardiomegaly. Bones/joints: No acute findings. XR/XR chest 1V portable [id number] IMPRESSION: No acute findings.
[2019-06-08 09:17] LABS: Ketone (Acetest) Serum Negative (Negative)
[2019-06-08 09:21] LABS: HCG, Serum Qual Negative (Negative)
[2019-06-08 09:25] LABS: ABG PCO2 30.5 mmHg (35-45); ABG PH Result 7.52 (7.35-7.45); Alveolar-Arterial Oxygen Gradi 15.1 mmHg (5-10); Arterial Blood Gas Hematocrit 43.1 % (37-47); Base Excess ABG 2.8 mmol/L (-2.0-2.0); Blood Gas Allen Test Pos; Blood Gas Sample Type Arterial; Carboxyhemoglobin 0.6 %THgb (0.4-20.1); HGB O2 Sat 97.4 % (95-100); Ionized Calcium Level - ABG 1.2 mmol/L (1.1-1.4); Methemoglobin 0.5 % (0.4-1.5); Oxygen Saturation ABG 98.5; Total Hemoglobin 14.1 g/dL (12-16)
[2019-06-08 09:27] LABS: Alanine Aminotransferase 27 U/L (0-33); Albumin Level 4.7 g/dL (3.5-5.2); Alkaline Phosphatase 60 IU/L (35-105); Anion Gap 19.8 (5-19); Aspartate Amino Transferase 20 U/L (0-32); Blood Urea Nitrogen 18 mg/dL (6-20); C Reactive Protein 3.7 mg/L (0.0-4.9); Calcium 10.5 mg/dL (8.5-10.5); Carbon Dioxide 25 mmol/L (22-29); Chloride 96 mmol/L (98-107); Creatinine Clr Calc Pharmacy 113.0612; Globulin 2.8 g/dL (1.3-4.6); Glomerular Filtration Rate 78.7 mL/min (90-130); Glucose 211 mg/dL (74-109); Potassium 3.8 mmol/L (3.5-5.1); Sodium 137 mmol/L (136-145); Total Bilirubin 0.3 mg/dL (0.15-1.2); Total Protein 7.5 g/dL (6.6-8.7)
[2019-06-08 09:31] LABS: Basophils # 0.1 10^3/uL (0.0-0.1); Basophils % 0.4 %; Eosinophils # 0.1 10^3/uL (0.0-0.8); Eosinophils % 0.6 %; Hemoglobin 13.5 g/dL (11.5-15.3); Lymphocytes # 1.2 10^3/uL (0.8-4.8); Lymphocytes % 9.3 %; Mean Corpuscular HGB Conc 31.4 g/dL (30.0-36.0); Mean Corpuscular Volume 89.2 fL (81-99); Mean Platelet Volume 8.9 fL (7.4-10.4); Monocytes # 0.9 10^3/uL (0.2-0.9); Monocytes % 6.5 %; Neutrophils # 10.7 10^3/uL (1.8-7.7); Neutrophils % 81.1 %; Nucleated Red Blood Cells % 0 %; Platelet Count 432 10^3/cmm (130-400); Red Blood Count 4.82 10^6/uL (4.1-5.3); Red Cell Distribution Width 14.6 % (12.1-15.1); White Blood Count 13.2 10^3/uL (4.0-10.0)
[2019-06-08 09:33] LABS: Troponin(5th) Baseline 73 ng/mL (0-10)
[2019-06-08 09:35] VITALS: PULSE 111; RESP 24; O2SAT 92
[2019-06-08] MEDS: ipratropium-albuterol 3 mL Neb INHALATION (09:38)
[2019-06-08 09:42] VITALS: PULSE 117
[2019-06-08 09:44] LABS: Lactate (Lactic Acid level) 3.1 mmol/L (0.5-2.2)
[2019-06-08 10:07] LABS: NT Pro B Type Natriuretic Pept 144 pg/mL (0-125)
[2019-06-08 10:47] LABS: Influenza A by IFA Negative (Negative); Influenza B by IFA Negative (Negative)
--- NOTE | 2019-06-08 11:02 | ECG_ITS ---
Measurements Intervals [place] Rate: 95 P: 33 MI: 159 QRS: 4 QRSD: 90 T: 143 QT: 338 QTc: 425 SINUS RHYTHM POSSIBLE LEFT ATRIAL ENLARGEMENT [-0.1mV P WAVE IN V1/V2] LEFT VENTRICULAR HYPERTROPHY AND ST-T CHANGE [VOLTAGE CRITERIA PLUS ST/T AB ABNORMALITY] Compared to ECG 08/22/2018 11:41:47 Left ventricular hypertrophy now present ST (T wave) deviation now present T-wave abnormality no longer present Possible ischemia no longer present Electronically Signed On 06-08-2019 18:38:09 SUPERVISOR TELEVISION CHASSIS REPAIR by Shanita Parry M.D. [id number]
[2019-06-08 11:23] LABS: Troponin 5 2HR 65.15 ng/mL (0-10)
--- NOTE | 2019-06-08 11:32 | CT_ITS ---
WS: [id number] CTA OF THE CHEST WITH PULMONARY EMBOLISM PROTOCOL TECHNIQUE: High-resolution contrast enhanced CTA of the chest with coronal and sagittal reformatted i [place] with pulmonary embolism protocol. MIP images are also reviewed. CLINICAL INFORMATION: SOB, high pretest prob COMPARISON: None. DLP: 485.[address] scans at [facility] use at least one of these dose optimization techniques: automat ed exposure control; mA and/or kV adjustment per patient size (includes targeted exams where dose is matched to clinical indication); or iterative reconstruction. FINDINGS: Images suboptimal due to body habitus. Proximal main pulmonary arteries are normal. No visualized luis ling defects. No evidence of pulmonary embolus. Normal caliber thoracic aorta. Normal endobronchial t ree. No mediastinal or hilar lymphadenopathy. Upper abdominal aorta is normal. Lungs are well aerated . Slight bibasilar atelectasis. Several noncalcified clustered nodules in the right upper lobe laterally the largest measuring 6 mm. Additional noncalcified nodule in the right upper lobe anteriorly adjacent to the heart measuring 5 mm. Otherwise no acute pulmonary infiltrates. No axillary lymphadenopathy. Adrenal glands are normal. Notified Socorro Butt MD MSM at 06/08/2019 12:[address]/CT angio chest PE protcl [id number] IMPRESSION: 1. Proximal main pulmonary arteries are normal. No evidence of pulmonary embol us. 2. Normal caliber thoracic aorta. 3. Nodular infiltrate in right upper lobe with the largest nodule measuring 6 mm. Additional noncalcified nodule in the anterior right upper lobe adjacent to the heart. These may be related to patient's history of sarcoidosis. Recommend 3-[address] follow-up
[2019-06-08] MEDS: iohexol 350 mg/mL 100 mL Btl IV (12:01)
[2019-06-08 13:10] LABS: Add Urine Microscopic? NO
[2019-06-08 13:15] LABS: Bilirubin Urine Neg (NEGATIVE); Blood Urine Neg (Negative); Glucose Urine UA Norm (Normal); Ketones Urine Negative (Negative); Leukocyte Esterase Urine Negative (Negative); Nitrate Urine Negative (Negative); Protein Urine Neg (Negative); Specific Gravity, Urine 1.005 (1.005-1.030); Urine Appearance Clear (CLEAR); Urine Color Yellow (Yellow); Urobilinogen Urine Norm (Negative); pH Urine 7 (5-7)
[2019-06-08 13:48] VITALS: BP 157/79; PULSE 107; O2SAT 96
[2019-06-08] MEDS: diphenhydrAMINE 50 mg/mL SDV 1mL IVP (14:24)
[2019-06-08] MEDS: sodium chloride 0.9% 1,000 ML 999 ML IV (14:26)
[2019-06-08] MEDS: sodium chloride 0.9% 1,000 ML 500 ML IV (14:27)
--- NOTE | 2019-06-08 15:02 | ECG_ITS ---
Measurements Intervals [place] Rate: 103 P: 44 MN: 156 QRS: 11 QRSD: 89 T: 141 QT: 328 QTc: 431 SINUS TACHYCARDIA POSSIBLE LEFT ATRIAL ENLARGEMENT [-0.1mV P WAVE IN V1/V2] LEFT VENTRICULAR HYPERTROPHY AND ST-T CHANGE [VOLTAGE CRITERIA PLUS ST/T ABNORMALITY] Compared to ECG 08/22/2018 11:41:47 Left ventricular hypertrophy now present ST (T wave) deviation now present Sinus rhythm no longer present T-wave abnormality no longer present Possible ischemia no longer present Electronically Signed On 06-08-2019 18:37:28 SWIMMING POOL SALESPERSON by Shanita Parry M.D. [id number]
[2019-06-08] MEDS: nitroglycerin 1 gm/inch oint Pkt 1 INCH TOPICAL (15:22)
[2019-06-08 15:30] LABS: Troponin 5 6HR 53.85 ng/L (0-10)
[2019-06-08 16:06] VITALS: BP 156/103; PULSE 106; RESP 20; TEMP 36.7; O2SAT 100
== END 2019-06-08 18:19 ==
PROVIDERS: Physician Assistant; Emergency Provider Family Medicine; Family Provider Nurse Practitioner Family
DX: R06.09 Other forms of dyspnea (principal); R07.2 Precordial pain; Z79.82 Long term (current) use of aspirin; Z79.4 Long term (current) use of insulin; Z87.891 Personal history of nicotine dependence
CPT/HCPCS: 36415; 36600; 71045; 71275; 80051; 80053; 81003; 82009; 82810; 83605; 83880; 83986; 84484; 84703; 85025; 86140; 87804; 93005; 96360; 96361; 96372; 96374; 96375; 99283; 99285; J1200; J2780; J7030; Q9967

== ENCOUNTER 2020-01-13 14:01 | Emergency (ER) | payer MEDICARE, MEDICAID, SELFPAY ==
[2020-01-13 14:10] VITALS: BP 135/101; PULSE 83; RESP 17; TEMP 36.1; O2SAT 98; BMI 47.9
--- NOTE | 2020-01-13 14:12 | W.ED.SKABFB ---
HPI - Skin/Abscess/Foreign Bdy General: Chief complaint: Skin/Abscess/Foreign Body Stated complaint: abcess on back of neck Time Seen by Provider: 01/13/20 14:04 Source: patient Mode of arrival: ambulatory Limitations: no limitations History of Present Illness: HPI narrative: Patient is a 44-year-old female who presents to ED today with a complaint of a lesion to her left posterior neck that she noticed 2 to 3 days ago. She has been keeping area clean. She has not had any drainage from the area. No known insect/spider bites. Patient does have a history of staph. She denies neck pain, decreased or painful range of motion, fever/chills, body aches. MD complaint: abscess/boil Onset (ago): day(s) Tetanus up to date: yes Location: neck Pain Consistency: constant Relieving factors: none Exacerbating factors: none Context: none Associated symptoms: Deny chills, fever(s), nausea or vomiting Review of Systems Const: Denies: fever(s), chills, body aches, fatigue or malaise GI: Denies: nausea or vomiting Skin/Breast: Reports: other (abscess to neck) Neuro: Denies: headache(s), numbness in extremities, weakness in extremities or sensory changes PFSH ED PFSH: Social History Smoking and tobacco status: former smoker Physical Exam Const: COMMON NORMALS: no acute distress, patient oriented x3 and no limitations Neck/C-Spine: COMMON NORMALS: full ROM and no lymphadenopathy CERVICAL SPINE: Yes cervical ROM normal OTHER: pt has a nickel sized indurated abscess to base of L neck; there is no fluctuance or drainage at this time; erythema localized directly over lesion; there is a small central punctate lesion with dried blood present; lesion does not feel mobile like a lymph node NECK IMAGES: 1. early abscess formation Neuro: COMMON NORMALS: patient oriented x3 Skin: OTHER: see neck assessment Course Vital Signs: Vital signs: Vital Signs Temperature 97.0 F L 01/13/20 14:10 Pulse Rate 83 01/13/20 14:10 Respiratory Rate 17 01/13/20 14:10 Blood Pressure 135/101 01/13/20 14:10 Pulse Oximetry 98 01/13/20 14:10 MDM - Skin/Abscess/Foreign Bdy MDM Narrative: Medical decision making narrative: abscess is not amendable to I&D at this time; pt with allergies to doxy and bactrim-will place on clindamycin; discussed how abscess may need to be drained at later date; return to ED precautions discussed Discharge Plan Discharge Patient Disposition: Home Clinical Impression: Abscess of neck Condition: Stable Prescriptions: New clindamycin HCl 300 mg capsule 300 mg PO Q6H 7 Days Qty: 28 RF: 0 No Action Multiple Vitamins Tablet 1 tab PO DAILY RF: 0 prednisone 20 mg Tablet See Rx Instructions .ROUTE .COMPLEX RF: 0 prednisone 5 mg Tablet 10 mg PO QAM RF: 0 potassium chloride 10 mEq Tablet Extended Release 10 meq PO DAILY PRN (Reason: unknown) RF: 0 azathioprine 50 mg Tablet See Rx Instructions .ROUTE .COMPLEX RF: 0 omeprazole 40 mg Capsule,Delayed Release(Dr/Ec) 40 mg PO DAILY RF: 0 Aspir-81 81 mg Tablet,Delayed Release (Dr/Ec) 81 mg PO DAILY RF: 0 tramadol 50 mg Tablet 50 mg PO Q6H PRN (Reason: Pain) RF: 0 lisinopril 30 mg Tablet 30 mg PO DAILY RF: 0 Lidocaine Viscous 2 % Solution See Rx Instructions .ROUTE .COMPLEX RF: 0 vitamin B complex Tablet 1 tab PO DAILY RF: 0 acyclovir 200 mg Capsule 200 mg PO TID PRN (Reason: unknown) RF: 0 hydrochlorothiazide 25 mg Tablet 25 mg PO DAILY RF: 0 mupirocin 2 % Ointment 1 applic TOPICAL PRN RF: 0 Lasix 20 mg Tablet 20 mg PO DAILY PRN (Reason: Edema) RF: 0 gabapentin 100 mg Capsule 200 mg PO TID RF: 0 epinephrine 0.3 mg/0.3 mL auto-injector See Rx Instructions .ROUTE .COMPLEX RF: 0 Novolog Flexpen U-100 Insulin 100 unit/mL (3 mL) Insulin Pen See Rx Instructions .ROUTE .COMPLEX RF: 0 rosuvastatin 10 mg Tablet 10 mg PO DAILY RF: 0 Cymbalta 30 mg Capsule,Delayed Release(Dr/Ec) 90 mg PO DAILY RF: 0 Lantus Solostar U-100 Insulin 100 unit/mL (3 mL) Insulin Pen 50 unit SUBCUT DAILY RF: 0 Vitamin D3 125 mcg (5,000 unit) Tablet 15,000 unit PO DAILY RF: 0 Victoza 3-Tairq 0.6 mg/0.1 mL (18 mg/3 mL) Pen Injector 1.8 mg SUBCUT DAILY RF: 0 Vitamin B-12 5,000 mcg Tablet, Sublingual 5,000 mcg SUBLINGUAL DAILY RF: 0 Calcium 600 with Vitamin D3 600 mg(1,500mg) -500 unit Capsule 1 cap PO DAILY RF: 0 Humira(CF) Pen 40 mg/0.4 mL Pen Injector Kit 40 mg SUBCUT Q14D RF: 0 Discharge Orders: Discharge Order (Routine); Ordered 01/13/20 Ordered By: Reanna Amin Referrals: Katy Holm FNP [Primary Care Provider] - Patient Instructions: Abscess (ED), Skin Abscess, Skin Abscess - Antibiotics Activity Restrictions/Additional Instructions: As discussed keep abscess clean with warm soapy water. Avoid picking at lesion. Begin antibiotics immediately. As we discussed please monitor abscess over the next 24 to 48 hours. Although incision and drainage was not indicated today, sometimes these lesions have to be drained at a later date if they continue to worsen. Coding Level of Care Code ED Nurse Case Manager for Rickg Fwd Exam Expanded Problem Focused
[2020-01-13 14:16] VITALS: O2SAT 97
[2020-01-13 14:26] VITALS: BP 139/83; PULSE 85; O2SAT 97
== END 2020-01-13 14:26 | disposition home or self-care (01) ==
PROVIDERS: Emergency Provider Physician Assistant; PCP Nurse Practitioner Family
DX: L02.11 Cutaneous abscess of neck (principal); Z79.82 Long term (current) use of aspirin; Z79.4 Long term (current) use of insulin; Z87.891 Personal history of nicotine dependence
CPT/HCPCS: 12345; 99282

== ENCOUNTER 2020-10-26 10:30 | Inpatient (IN) | payer MEDICARE, MEDICAID, SELFPAY ==
[2020-10-26] VITALS (52 sets, daily range): BP systolic 90–156; BP diastolic 51–97; PULSE 75–134; RESP 12–31; TEMP 36.7–37; O2SAT 83–99; BMI 43.5
--- NOTE | 2020-10-26 10:38 | ECG_ITS ---
[facility] Test Date: 2020-10-26 Pat Name: Fariha Beard Department: Room: Gender: Female Executive Chairman: : 1975 Requested By: Raffy Tracy Order Number: [id number] Olivia MD: Mickie Damico M.D. Measurements Intervals [place] Rate: 124 P: 55 CO: 159 QRS: 13 QRSD: 89 T: 50 QT: 321 QTc: 462 Interpretive Statements SINUS TACHYCARDIA LEFT VENTRICULAR HYPERTROPHY AND ST-T CHANGE [VOLTAGE CRITERIA PLUS ST/T ABNORMALITY] Compared to ECG 06/08/2019 14:19:28 Sinus rhythm no longer present ST (T wave) deviation still present Electronically Signed On 10-26-2020 22:24:40 CDT by Mickie Damico M.D. [id number]
--- NOTE | 2020-10-26 10:38 | XR_ITS ---
WS: [id number] Exam: XR chest 1V portable [id number] Date/Time of Exam: 10/26/2020 10:38 AM Reason For Exam: dyspnea/cough Comparison 06/08/2019. Findings: The lungs are clear and fully expanded. Costophrenic angles are sharp. No infiltrates. Bronchovascula r relief appears normal. Cardiac silhouette is unremarkable. Bony elements are intact. XR/XR chest 1V portable [id number] IMPRESSION: Unremarkable chest radiograph.
--- NOTE | 2020-10-26 10:39 | W.ED.SOB ---
HPI - SOB/Dyspnea General: Chief Complaint: Shortness of Breath/Dyspnea Stated Complaint: ASTHMA EXACERBATION Time Seen by Provider: 10/26/20 10:34 History of Present Illness: HPI Narrative: 45-year-old female presents emergency room with complaints of shortness of breath on arrival she is acutely short short of breath EMS reports having given her for nebulizers in route they did not get an IV so she has not had any steroid she is diabetic she is on a prednisone taper that she started 2 days ago. She denies any vomiting or diarrhea she is on Humira she reports a history of rheumatoid arthritis lupus and sarcoidosis. MD elicited complaint: shortness of breath and cough Pertinent past history: COPD Onset (ago): hour(s) Context: occurred during exertion Timing: constant Severity: mild Exacerbating factors: exertion and coughing Relieving factors: oxygen and bronchodilators Known history of: COPD Associated symptoms: Reports cough; Deny abdominal pain, chest congestion, chest pain, diaphoresis, dizziness, extremity pain, fever(s), hemoptysis, lightheadedness, myalgias, nausea, orthopnea, palpitations, paresthesias, polydipsia, polyuria, rash, sense of impending doom, syncope or vomiting Treatment prior to arrival: oxygen and bronchodilator Review of Systems Const: Denies: fever(s) or diaphoresis ENMT: Denies: throat pain, ear or mastoid pain, nasal discharge or nasal congestion Card: Denies: chest pain, palpitations, lightheadedness, syncope or orthopnea Resp: Denies: hemoptysis or chest congestion GI: Denies: abdominal pain, nausea or vomiting : Denies: flank pain, difficulty voiding, dysuria, urinary frequency or urinary urgency Musc: Denies: extremity pain Skin/Breast: Denies: rash or pruritus Neuro: Denies: dizziness Endo: Denies: polyuria or polydipsia PFSH ED PFSH: Medical History Asthma Asthma exacerbation Dyslipidemia HOCM (hypertrophic obstructive cardiomyopathy) HTN (hypertension) Immunocompromised Lupus (systemic lupus erythematosus) Sarcoidosis Type 2 diabetes mellitus Family History Denies family history of Diabetes CAD (coronary artery disease) Chronic kidney disease (CKD) Cancer Social History (Reviewed 10/29/20 @ 17:23 by SUKI Castillo Smoking and tobacco status: former smoker Alcohol intake: never Lives independently: No Household members: family Housing: House Physical Exam Const: COMMON NORMALS: no acute distress GENERAL APPEARANCE: cooperative and comfortable ORIENTATION/CONSCIOUSNESS: Yes awake, Yes oriented to person, Yes oriented to place and Yes oriented to time HENMT: COMMON NORMALS: normocephalic, atraumatic, hearing grossly normal bilaterally and external ears normal HEAD & SCALP: normocephalic and atraumatic EXTERNAL EAR: Yes external ears normal Neck/C-Spine: COMMON NORMALS: no JVD Resp: COMMON NORMALS: normal respiratory effort, No retractions, No use of accessory muscles and clear to auscultation bilaterally AUSCULTATION: clear to auscultation bilaterally Cardio: COMMON NORMALS: no JVD, regular rate, regular rhythm and No murmurs present (Cardio) RATE: regular rate RHYTHM: regular rhythm GI: COMMON NORMALS: Soft to palpation and No hepatosplenomegaly present AUSCULTATION: Yes normoactive bowel sounds PALPATION: Yes Soft to palpation, No Tenderness to palpation present (GI), No Guarding due to palpation present (GI) and Yes No hepatosplenomegaly present Extremity: COMMON NORMALS: normal to inspection, capillary refill normal, no clubbing, cyanosis or edema, no calf tenderness and no pedal edema Neuro: SENSORIUM/ORIENTATION: Yes oriented to person, Yes oriented to place and Yes oriented to time Skin: COMMON NORMALS: no rashes or lesions noted GENERAL SKIN EXAM: no rashes or lesions noted Course Vital Signs: Vital signs: Vital Signs Temperature 98.2 F 10/27/20 08:00 Pulse Rate 88 10/27/20 14:00 Respiratory Rate 20 H 10/27/20 12:00 Blood Pressure 111/72 10/27/20 13:00 Pulse Oximetry 100 10/27/20 13:00 MDM - SOB/Dyspnea MDM Narrative: Medical decision making narrative: Meds for asthma exacerbation discussed with Dr. Torres. Orders are written Lab Data: Labs: Lab Results 10/26/20 10/26/20 10/26/20 Range/Units 09:40 09:40 09:40 WBC 7.3 (4.0-10.0) 10^3/ uL RBC 4.28 (4.1-5.3) 10^6/u L Hgb 12.4 (11.5-15.3) g/dL Hct 37.9 (37.0-47.0) % MCV 88.6 (81-99) fL MCH 29.0 (28.0-34.0) pg MCHC 32.7 (30.0-36.0) g/dL RDW 13.7 (12.1-15.1) % Plt Count 415 H (130-400) 10^3/c mm MPV 10.0 (7.4-10.4) fL Neut % (Auto) 36.4 % Lymph % (Auto) 52.8 % Wil[place]ger % (Auto) 6.6 % Eos % (Auto) 2.5 % Baso % (Auto) 0.6 % Neut # (Auto) 2.65 (1.8-7.7) 10^3/u L Lymph # (Auto) 3.8 (0.8-4.8) 10^3/u L [place] # (Auto) 0.5 (0.2-0.9) 10^3/u L Eos # (Auto) 0.2 (0.0-0.8) 10^3/u L Baso # (Auto) 0.0 (0.0-0.1) 10^3/u L Nucleated RBC % (a uto) 0 % Nucleated RBCs # 0.0 /100WBC D-Dimer 0.43 (0-0.59) ug/mIFE U Specimen Type Sample Site ABG pH (7.35-7.45) ABG pCO2 (35-45) mmHg ABG pO2 (80.0-100.0) mmH g ABG HCO3 (22-26) mmol/L ABG O2 Saturation ABG Base Excess (-2.0-2.0) mmol/ L German Test A-a O2 Gradient (5-10) mmHg Hematocrit (37-47) % Hgb O2 Saturation (95-100) % Carboxyhemoglobin (0.4-20.1) %THgb Methemoglobin (0.4-1.5) % Total Hemoglobin (12-16) g/dL Ionized Calcium (1.1-1.4) mmol/L O2 Delivery Device FiO2 % Document Controller ID Sodium Cancelled Potassium Cancelled Chloride Cancelled Carbon Dioxide Cancelled Anion Gap Cancelled BUN Cancelled Creatinine Cancelled GFR Calculation Cancelled Glucose Cancelled POC Glucose (70-110) mg/dL Calculated Osmolal ity Cancelled Calcium Cancelled Magnesium (1.7-2.3) mg/dL Iron (37-145) ug/dL TIBC mcg/dl % Saturation (20-50) % Unsat Iron Binding (112-347) ug/dL Total Bilirubin Cancelled AST Cancelled ALT Cancelled Alkaline Phosphata se Cancelled NT-Pro-B Natriuret Pep (0-125) pg/mL Total Protein Cancelled Albumin Cancelled Globulin Cancelled Procalcitonin (0-0.5) ng/mL TSH (0.27-4.20) uIU/ mL 10/26/20 10/26/20 10/26/20 Range/Units 10:45 11:01 11:20 WBC (4.0-10.0) 10^3/ uL RBC (4.1-5.3) 10^6/u L Hgb (11.5-15.3) g/dL Hct (37.0-47.0) % MCV (81-99) fL MCH (28.0-34.0) pg MCHC (30.0-36.0) g/dL RDW (12.1-15.1) % Plt Count (130-400) 10^3/c mm MPV (7.4-10.4) fL Neut % (Auto) % Lymph % (Auto) % Wilbarger % (Auto) % Eos % (Auto) % Baso % (Auto) % Neut # (Auto) (1.8-7.7) 10^3/u L Lymph # (Auto) (0.8-4.8) 10^3/u L Wilbarger # (Auto) (0.2-0.9) 10^3/u L Eos # (Auto) (0.0-0.8) 10^3/u L Baso # (Auto) (0.0-0.1) 10^3/u L Nucleated RBC % (a uto) % Nucleated RBCs # /100WBC D-Dimer (0-0.59) ug/mIFE U Specimen Type Arterial Sample Site Radial, right ABG pH 7.51 H (7.35-7.45) ABG pCO2 31.2 L (35-45) mmHg ABG pO2 42.5 L (80.0-100.0) mmH g ABG HCO3 24.6 (22-26) mmol/L ABG O2 Saturation 81.4 ABG Base Excess 2.1 H (-2.0-2.0) mmol/ L German Test Pos A-a O2 Gradient 8.9 (5-10) mmHg Hematocrit 40.8 (37-47) % Hgb O2 Saturation 79.9 L (95-100) % Carboxyhemoglobin 1.2 (0.4-20.1) %THgb Methemoglobin 0.7 (0.4-1.5) % Total Hemoglobin 13.3 (12-16) g/dL Ionized Calcium 1.1 (1.1-1.4) mmol/L O2 Delivery Device Room air FiO2 21.0 % Document Controller ID Ed Sodium 140.0 138 Potassium 2.8 L 3.0 L Chloride 100 Carbon Dioxide 22 Anion Gap 19.0 BUN 13 Creatinine 0.7 GFR Calculation 90.9 Glucose 211.0 H 221 H POC Glucose 227 H (70-110) mg/dL Calculated Osmolal ity 293 Calcium 8.8 Magnesium (1.7-2.3) mg/dL Iron (37-145) ug/dL TIBC mcg/dl % Saturation (20-50) % Unsat Iron Binding (112-347) ug/dL Total Bilirubin 0.7 AST 20 ALT 21 Alkaline Phosphata se 62 NT-Pro-B Natriuret Pep (0-125) pg/mL Total Protein 6.6 Albumin 3.9 Globulin 2.7 Procalcitonin (0-0.5) ng/mL TSH (0.27-4.20) uIU/ mL 10/26/20 10/26/20 10/26/20 Range/Units 11:20 11:20 11:20 WBC (4.0-10.0) 10^3/ uL RBC (4.1-5.3) 10^6/u L Hgb (11.5-15.3) g/dL Hct (37.0-47.0) % MCV (81-99) fL MCH (28.0-34.0) pg MCHC (30.0-36.0) g/dL RDW (12.1-15.1) % Plt Count (130-400) 10^3/c mm MPV (7.4-10.4) fL Neut % (Auto) % Lymph % (Auto) % Wilbarger % (Auto) % Eos % (Auto) % Baso % (Auto) % Neut # (Auto) (1.8-7.7) 10^3/u L Lymph # (Auto) (0.8-4.8) 10^3/u L [place]ger # (Auto) (0.2-0.9) 10^3/u L Eos # (Auto) (0.0-0.8) 10^3/u L Baso # (Auto) (0.0-0.1) 10^3/u L Nucleated RBC % (a uto) % Nucleated RBCs # /100WBC D-Dimer (0-0.59) ug/mIFE U Specimen Type Sample Site ABG pH (7.35-7.45) ABG pCO2 (35-45) mmHg ABG pO2 (80.0-100.0) mmH g ABG HCO3 (22-26) mmol/L ABG O2 Saturation ABG Base Excess (-2.0-2.0) mmol/ L German Test A-a O2 Gradient (5-10) mmHg Hematocrit (37-47) % Hgb O2 Saturation (95-100) % Carboxyhemoglobin (0.4-20.1) %THgb Methemoglobin (0.4-1.5) % Total Hemoglobin (12-16) g/dL Ionized Calcium (1.1-1.4) mmol/L O2 Delivery Device FiO2 % Document Controller ID Sodium Potassium Chloride Carbon Dioxide Anion Gap BUN Creatinine GFR Calculation Glucose POC Glucose (70-110) mg/dL Calculated Osmolal ity Calcium Magnesium 1.8 (1.7-2.3) mg/dL Iron 75 (37-145) ug/dL TIBC 325 mcg/dl % Saturation 23.0 (20-50) % Unsat Iron Binding 250 (112-347) ug/dL Total Bilirubin AST ALT Alkaline Phosphata se NT-Pro-B Natriuret Pep 183 H (0-125) pg/mL Total Protein Albumin Globulin Procalcitonin 0.03 (0-0.5) ng/mL TSH 3.43 (0.27-4.20) uIU/ mL Discharge Plan Discharge Patient Disposition: Admitted As Inpatient Admit Provider: Danielito Torres Clinical Impression: Asthma with exacerbation Condition: Stable Discharge Diet: Cardiac Discharge Activity: Resume usual activity Coding Level of Care Code ED Slab[employer] for Lou Ley
[2020-10-26 10:49] LABS: Glucose Point of Care 227 mg/dL (70-110)
[2020-10-26] MEDS: ipratropium-albuterol 3 mL Neb INHALATION ×2 (10:55→14:45)
[2020-10-26 10:56] LABS: Basophils % 0.6 %; Eosinophils # 0.2 10^3/uL (0.0-0.8); Eosinophils % 2.5 %; Hematocrit 37.9 % (37.0-47.0); Hemoglobin 12.4 g/dL (11.5-15.3); Lymphocytes # 3.8 10^3/uL (0.8-4.8); Lymphocytes % 52.8 %; Mean Corpuscular HGB Conc 32.7 g/dL (30.0-36.0); Mean Corpuscular Volume 88.6 fL (81-99); Monocytes # 0.5 10^3/uL (0.2-0.9); Monocytes % 6.6 %; Neutrophils # 2.65 10^3/uL (1.8-7.7); Neutrophils % 36.4 %; Nucleated Red Blood Cells % 0 %; Platelet Count 415 10^3/cmm (130-400); Red Blood Count 4.28 10^6/uL (4.1-5.3); Red Cell Distribution Width 13.7 % (12.1-15.1); White Blood Count 7.3 10^3/uL (4.0-10.0)
[2020-10-26 11:11] LABS: ABG PCO2 31.2 mmHg (35-45); ABG PH Result 7.51 (7.35-7.45); Alveolar-Arterial Oxygen Gradi 8.9 mmHg (5-10); Arterial Blood Gas Hematocrit 40.8 % (37-47); Base Excess ABG 2.1 mmol/L (-2.0-2.0); Blood Gas Allen Test Pos; Blood Gas Operator Identificat ED; Blood Gas Sample Site Radial, right; Blood Gas Sample Type Arterial; Carboxyhemoglobin 1.2 %THgb (0.4-20.1); HCO3 ABG 24.6 mmol/L (22-26); HGB O2 Sat 79.9 % (95-100); Ionized Calcium Level - ABG 1.1 mmol/L (1.1-1.4); Methemoglobin 0.7 % (0.4-1.5); Oxygen Device ROOM AIR; Oxygen Saturation ABG 81.4; PO2 ABG 42.5 mmHg (80.0-100.0); Potassium Level - ABG 2.8 mmol/L (3.5-5.0); Total Hemoglobin 13.3 g/dL (12-16)
[2020-10-26 11:44] LABS: Alanine Aminotransferase 21 U/L (0-33); Albumin Level 3.9 g/dL (3.5-5.2); Alkaline Phosphatase 62 IU/L (35-105); Aspartate Amino Transferase 20 U/L (0-32); Blood Urea Nitrogen 13 mg/dL (6-20); Calcium 8.8 mg/dL (8.5-10.5); Carbon Dioxide 22 mmol/L (22-29); Chloride 100 mmol/L (98-107); Globulin 2.7 g/dL (1.3-4.6); Glomerular Filtration Rate 90.9 mL/min (90-130); Glucose 221 mg/dL (65-115); Osmolality Calculated 293 mOsm/kg (285-295); Sodium 138 mmol/L (136-145); Total Bilirubin 0.7 mg/dL (0.15-1.2); Total Protein 6.6 g/dL (6.6-8.7)
[2020-10-26 13:03] LABS: D Dimer 0.43 ug/mIFEU (0-0.59)
--- NOTE | 2020-10-26 14:03 | CTR_ITS ---
PROCEDURE INFORMATION: Exam: CT Chest Without Contrast; Diagnostic Exam date and time: 10/26/2020 2:03 PM Age: 45 years old Clinical indication: Dyspnea; Additional info: Copd exacerbation TECHNIQUE: Imaging protocol: Diagnostic computed tomography of the chest without contrast. Radiation optimization: All CT scans at this facility use at least one of these dose optimization techniques: automated exposure control; mA and/or kV adjustment per patient size (includes targeted exams where dose is matched to clinical indication); or iterative reconstruction. COMPARISON: CT angio chest PE protcl [id number] 06/08/2019 12:10 PM RADIATION DOSE METRICS: Total DLP (mGy-cm): 889.14 FINDINGS: Lungs: No focal airspace consolidation. No septal thickening. No endobronchial obstruction. Negative for bronchiectasis. Negative for peripheral honeycombing. Small noncalcified pulmonary nodule in the medial right middle lobe juxtapleural area abutting the border of the right heart measures 5-6 mm stable from prior. Faint cluster of ground-glass nodules near the fissure in the inferior right upper lobe stable from prior. Pleural spaces: Unremarkable. No pneumothorax. No pleural effusion. Heart: Unremarkable. No cardiomegaly. No pericardial effusion. Mediastinal space: Small calcified granulomas left hilum. Aorta: Unremarkable. No aortic aneurysm. Lymph nodes: Negative for mediastinal lymphadenopathy. Bones/joints: Unremarkable. No acute fracture. Soft tissues: Unremarkable. CT/CT chest [facility] [id number] IMPRESSION: 1. No focal acute airspace disease. 2. Stable right lung pulmonary micronodules. Radiation Dose CTDIVOL = (mGy): DLP = 889.14 (mGy-cm)
--- NOTE | 2020-10-26 14:03 | PM.HP ---
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 Patient states this all started for her on Thursday night(today is Thursday) when she woke up with hypoglycemia. Since then she has been having occasional chest tightness and worsening difficulty in breathing. She complains of occasional chest pain. Denies any changes in medications. Denies any allergic reaction. She has been having occasional runny nose and was concerned was having a flu for which she went to her local PCP when Covid was tested on Thursday which came back negative. Patient has a sick contact and her son who has been having symptoms similar to strep throat for last 2 weeks. Denies any other sick contacts, exposure to COVID-19, recent travels. She has not had COVID-19 vaccination yet. She denies any subjective feeling fever. Blood work in the ER showed a white count 7.3, hemoglobin of 12.4, platelet #415, sodium of 138, potassium of 3, chloride of 100, creatinine of 0.7, AST/ALT of 20/21, protein of 6.6. Chest x-ray done as below. Review of Systems General: Reports: 10 or more systems reviewed and unremarkable except in HPI and below Const: Denies: fever(s), chills, body aches, change in appetite, change in weight, malaise, night sweats, diaphoresis, change in sleep pattern, daytime sleepiness or snoring Eyes: Denies: change in vision, blurry vision, photophobia, eye discomfort or eye discharge ENMT: Denies: throat pain, enlarged tonsils, hoarseness, mouth pain, oral sores, dry mouth, tinnitus, nasal congestion or post nasal drip Card: Denies: chest pain, palpitations, irregular heart rhythm, edema, swelling of feet/ankles, lightheadedness, syncope, pre-syncope, dyspnea on exertion, orthopnea, leg pain with exertion or acrocyanosis Resp: Denies: dyspnea, productive cough, non-productive cough, wheezing, stridor, pain on inspiration, change in phlegm color, hemoptysis or chest congestion GI: Denies: abdominal pain, nausea, vomiting, hematemesis, coffee ground emesis, dysphagia, heartburn, diarrhea, constipation, bloating, GI cramping, change in bowel habits, pain on defecation, hematochezia or melena : Denies: flank pain, dysuria, urinary frequency, urinary urgency, urinary hesitancy, nocturia or hematuria Musc: Denies: neck pain, back pain, extremity pain, joint pain, joint swelling, joint redness, joint stiffness or limited range of motion Neuro: Denies: headache(s), numbness in extremities, weakness in extremities, sensory changes, lack of coordination, difficulty walking, frequent falls, dizziness, vertigo, confusion, Slurred speech present, difficulty communicating thoughts or seizure-like activity Psych: Denies: anxiety, depression, mood swings, panic attacks, hopelessness or irritability Endo: Denies: polyuria, polydipsia, tired all the time, cold intolerance, excessive sweating, flushing or heat intolerance David/Lymph: Denies: easy bruising or easy bleeding All/Imm: Denies: tongue swelling, facial swelling or acute wheezing Medications/Allergies Home Medications Medication Instructions Recorded Confirmed Last Taken Type acyclovir 200 mg PO TID PRN 06/08/19 10/26/20 Unknown History adalimumab [Humira(CF) Pen] 40 mg SUBCUT Q7D 06/08/19 10/26/20 10/19/20 History azathioprine See Rx Instructions .ROUTE .COMPLEX 06/08/19 10/26/20 10/26/20 History calcium carbonate-vitamin D3 1 cap PO DAILY 06/08/19 10/26/20 10/26/20 History [Calcium 600 with Vitamin D3] duloxetine [Cymbalta] 90 mg PO DAILY 06/08/19 10/26/20 10/26/20 History epinephrine See Rx Instructions .ROUTE .COMPLEX 06/08/19 10/26/20 Unknown History furosemide [Lasix] 20 mg PO DAILY PRN 06/08/19 10/26/20 06/07/19 History hydrochlorothiazide 25 mg PO DAILY 06/08/19 10/26/20 10/26/20 History insulin aspart U-100 [Novolog See Rx Instructions .ROUTE .COMPLEX 06/08/19 10/26/20 Unknown History Flexpen U-100 Insulin] insulin glargine [Lantus Solostar 50 unit SUBCUT DAILY 06/08/19 10/26/20 10/26/20 History U-100 Insulin] lisinopril 30 mg PO DAILY 06/08/19 10/26/20 10/26/20 History multivitamin [Multiple Vitamins] 1 tab PO DAILY 06/08/19 10/26/20 10/26/20 History mupirocin 1 applic TOPICAL PRN 06/08/19 10/26/20 Unknown History omeprazole 40 mg PO DAILY 06/08/19 10/26/20 10/26/20 History potassium chloride 10 meq PO DAILY PRN 06/08/19 10/26/20 06/07/19 History prednisone 10 mg PO DAILY 06/08/19 10/26/20 10/26/20 History tramadol 50 mg PO Q4H PRN 06/08/19 10/26/20 10/26/20 History vitamin B complex 1 tab PO DAILY 06/08/19 10/26/20 10/26/20 History albuterol sulfate 2 puff INHALATION 6XD PRN 10/26/20 10/26/20 Unknown History atorvastatin [Lipitor] 20 mg PO DAILY 10/26/20 10/26/20 10/25/20 History cholecalciferol (vitamin D3) 75 mcg PO DAILY 10/26/20 10/26/20 10/26/20 History [Vitamin D3] cyanocobalamin (vitamin B-12) 5,000 mcg SUBLINGUAL DAILY 10/26/20 10/26/20 10/26/20 History [Vitamin B-12] fluticasone propionate 1 spray INTRANASAL BID PRN 10/26/20 10/26/20 Unknown History gabapentin 300 mg PO TID 10/26/20 10/26/20 10/26/20 History levofloxacin [Levaquin] 750 mg PO DAILY 10/26/20 10/26/20 10/26/20 History rosuvastatin 5 mg PO DAILY 10/26/20 10/26/20 10/25/20 History tizanidine 4 mg PO TID PRN 10/26/20 10/26/20 Unknown History Allergies Allergy/AdvReac Type Severity Reaction Status Date / Time acetaminophen [From Percocet] Allergy ALGY-Rash Verified 06/08/19 08:49 coconut Allergy ALGY-Bliste Verified 06/08/19 08:49 r doxycycline Allergy ALGY-Rash Verified 01/13/20 14:18 oxycodone [From Percocet] Allergy ALGY-Rash Verified 06/08/19 08:49 propoxyphene Allergy ALGY-Rash Verified 06/08/19 08:49 [From Darvocet-N] sulfamethoxazole Allergy ADR-Nausea Verified 01/13/20 14:18 [From Bactrim] trimethoprim [From Bactrim] Allergy ADR-Nausea Verified 01/13/20 14:18 PFSH Acute PFSH: Medical History (Updated 10/26/20 @ 15:29 by Danielito Torres MD) Asthma Asthma exacerbation Dyslipidemia HTN (hypertension) Immunocompromised Lupus (systemic lupus erythematosus) Sarcoidosis Type 2 diabetes mellitus Family History (Updated 10/26/20 @ 15:29 by Danielito Torres MD) Denies family history of Diabetes CAD (coronary artery disease) Chronic kidney disease (CKD) Cancer Social History (Updated 10/26/20 @ 15:30 by Danielito Torres MD) Smoking and tobacco status: former smoker Alcohol intake: never Substance/Drug Use: never Lives independently: No Household members: family Housing: House Vitals/I&O/Wt Last Vital Signs Temp 98.6 F 10/26/20 10:32 Pulse 95 10/26/20 13:33 Resp 18 10/26/20 13:33 BP 116/70 10/26/20 13:33 Pulse Ox 95 10/26/20 13:33 Weight last 48 hrs Weight 107.955 kg Physical Exam Narrative: EXAM NARRATIVE: General: AOx3, in acute distress because of difficulty in breathing, hyperemic, obese, on room air saturating 97%, mildly tachypneic HEENT: PERRLA, pupils bilaterally equal and reactive Chest: Normal vesicular breath sounds, bilateral extensive rhonchi, decreased air entry bilaterally CVS: S1-S2 regular, no murmurs, tachycardia, no gallops, no rubs Abdomen: Soft, nontender, no organomegaly, bowel sounds present Neuro: No focal deficits, no facial deformity, AO x3, power 5/5 in all limbs Data : 10/26/20 09:40 10/26/20 11:20 A&P Assessment and plan (1) Asthmaticus, status: Status: Acute (2) Hypoxia: Status: Acute (3) Lupus (systemic lupus erythematosus): Status: Acute (4) Sarcoidosis: Status: Acute (5) Type 2 diabetes mellitus: Status: Acute (6) HTN (hypertension): Status: Acute (7) Dyslipidemia: Status: Acute (8) Immunocompromised: Status: Acute Additional A&P Information 45-year female with past medical history of lupus, sarcoidosis, asthma, immunocompromise status presented to the ER with difficulty in breathing getting worse the last 5 days. Status asthmaticus: ABG done in the ER concerning for a VBG. We will repeat ABG full panel and also rule out methemoglobinemia. Patient is immunocompromised because of her treatment for lupus leukocytosis. Check ESR, CRP, HEBERT levels, ANCA panel. Check COVID-19 antigen, flu swab, respiratory viral panel, sputum culture, urine Legionella, bacterial antigen, rapid strep, blood cultures, troponin cycle. Start patient on ipratropium and Xopenex every 4 hours, budesonide twice daily. Solu-Medrol 40 every 8 hourly. Check magnesium. Start patient on magnesium sulfate 2 mg IV stat. Start patient on azithromycin, ceftriaxone. Type 2 diabetes mellitus: Check HbA1c. Insulin sliding scale at moderate dose. Continue with home dose of Lantus 50 units daily. Hypertension: Goal blood pressure less than 140/90 mmHg. Continue home dose of lisinopril 30 mg daily. Sarcoidosis/lupus: We will request documents from rheumatology office. For now hold off on azathioprine and Actemra. Check iron panel, TSH, HEBERT levels. Full code. Carb consistent diet. Full dose Lovenox for DVT prophylaxis. Attestations Medical Necessity Statement*: Patient requires hospitalization for management of status asthmaticus, improved immunocompromise status because of treatment for sarcoidosis and lupus. Will require admission for more than 2 midnights. Critical Care Time: The high probability of a clinically significant, sudden or life threatening deterioration of the patient's [respiratory] system(s) required my full and direct attention, intervention and personal management. The critical care time is as shown. This time is in addition to time spent performing any reported procedures but includes the following: [x] Data and vital sign review and interpretation [x] Patient assessment, examination and intervention [x] Documentation [x] Medication orders and management Critical Care Time (min): 60 Coding Level of Care Code Acute Client Technical Specialist for Chg Fwd Diagnoses Asthmaticus, status J45.902 Hypoxia R09.02 Lupus (systemic lupus erythematosus) M32.9 Sarcoidosis D86.9 Type 2 diabetes mellitus E11.9 HTN (hypertension) I10 Dyslipidemia E78.5 Immunocompromised D84.9
[2020-10-26] MEDS: potassium chloride ER 20 mEq Tablet 80 MEQ PO (14:19)
[2020-10-26 14:42] LABS: NT Pro B Type Natriuretic Pept 183 pg/mL (0-125); Procalcitonin 0.03 ng/mL (0-0.5)
[2020-10-26 14:43] LABS: Thyroid Stimulating Hormone 3.43 uIU/mL (0.27-4.20)
[2020-10-26 14:54] LABS: Iron 75 ug/dL (37-145); Total Iron Binding Capacity 325 mcg/dl; Unsaturated Iron Binding 250 ug/dL (112-347)
[2020-10-26 15:04] LABS: Magnesium 1.8 mg/dL (1.7-2.3)
[2020-10-26] MEDS: gabapentin 300 mg Capsule PO ×2 (15:44→20:40)
[2020-10-26 16:23] LABS: ABG PCO2 34.1 mmHg (35-45); ABG PH Result 7.39 (7.35-7.45); Alveolar-Arterial Oxygen Gradi 3.7 mmHg (5-10); Arterial Blood Gas Hematocrit 37.3 % (37-47); Base Excess ABG -3.8 mmol/L (-2.0-2.0); Blood Gas Allen Test Pos; Blood Gas Operator Identificat CAK; Blood Gas Sample Site Radial, left; Blood Gas Sample Type Arterial; Carboxyhemoglobin 0.8 %THgb (0.4-20.1); HCO3 ABG 20.5 mmol/L (22-26); HGB O2 Sat 95.6 % (95-100); Ionized Calcium Level - ABG 1.2 mmol/L (1.1-1.4); Methemoglobin < 0.0 % (0.4-1.5); Oxygen Device ROOM AIR; Oxygen Saturation ABG 96.3; PO2 ABG 77.8 mmHg (80.0-100.0); Potassium Level - ABG 3.8 mmol/L (3.5-5.0); Total Hemoglobin 12.2 g/dL (12-16)
[2020-10-26 16:40] LABS: Bilirubin Urine Neg (Negative); Blood Urine 3+ (Negative); Glucose Urine UA 2+ (Normal); Ketones Urine Negative (Negative); Leukocyte Esterase Urine Negative (Negative); Nitrate Urine Negative (Negative); Protein Urine Neg (Negative); Specific Gravity, Urine 1.005 (1.005-1.030); Urine Appearance SL Hazy (CLEAR); Urine Color Yellow (Yellow); Urobilinogen Urine Norm (Negative); pH Urine 5 (5-7)
[2020-10-26 16:41] LABS: Add Urine Culture? Yes; Bacteria Urine TRACE /hpf; RBC Urine 25-40 /hpf (0-2); Squamous Epithelial Cell Urine 0-4 /hpf (0-5); WBC Urine 0-4 /hpf (0-5)
[2020-10-26] MEDS: sodium chloride 3.5% neb 4 mL Neb INHALATION (17:22)
[2020-10-26 17:23] LABS: Glucose Point of Care 473 mg/dL (70-110)
[2020-10-26 17:25] LABS: Troponin(5th) Baseline 12 ng/L (0-10)
[2020-10-26] MEDS: enoxaparin 40 mg/0.4 mL Syringe SUBCUT (17:26)
[2020-10-26 17:29] LABS: Lactate Dehydrogenase 294 U/L (135-214)
--- NOTE | 2020-10-26 17:38 | ECG_ITS ---
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 Measurements Intervals [place] Rate: 109 P: 63 IN: 166 QRS: 18 QRSD: 88 T: 119 QT: 326 QTc: 440 Interpretive Statements SINUS TACHYCARDIA LEFT VENTRICULAR HYPERTROPHY AND ST-T CHANGE [VOLTAGE CRITERIA PLUS ST/T ABNORMALITY] Compared to ECG 10/26/2020 10:57:13 No significant changes Electronically Signed On 10-26-2020 22:31:57 CDT by Mickie Damico M.D. [id number]
[2020-10-26 17:56] LABS: Rapid Strep A Test Negative (Negative)
[2020-10-26 18:11] LABS: Erythrocyte Sedimentation Rate 22 mm/hr (0-15)
[2020-10-26] MEDS: fluticasone nasal spray 16gm Btl 1 SPRAY INTRANASAL (18:30)
[2020-10-26 19:12] LABS: Troponin 5 2HR 12.59 ng/L (0-10); Troponin 5 2HR Delta 0.59 ABS# (0-10)
[2020-10-26 20:11] LABS: Influenza A by IFA Negative (Negative); Influenza B by IFA Negative (Negative)
[2020-10-26] MEDS: benzonatate 100 mg Capsule PO (20:40)
[2020-10-26 20:57] LABS: Glucose Point of Care 398 mg/dL (70-110)
[2020-10-26] MEDS: levalbuterol 0.63 mg/3 mL Neb INHALATION (21:01)
[2020-10-26] MEDS: budesonide 0.5 mg/2 mL Neb INHALATION (21:01)
[2020-10-26] MEDS: ipratropium 0.5 mg/2.5 mL Neb INHALATION (21:01)
--- NOTE | 2020-10-26 21:38 | ECG_ITS ---
[facility] Test Date: 2020-10-26 Pat Name: Fariha Beard Department: Room: 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 Measurements Intervals [place] Rate: 85 P: 38 ND: 148 QRS: 24 QRSD: 86 T: 132 QT: 370 QTc: 441 Interpretive Statements SINUS RHYTHM POSSIBLE LEFT ATRIAL ENLARGEMENT [-0.1mV P WAVE IN V1/V2] LEFT VENTRICULAR HYPERTROPHY AND ST-T CHANGE [VOLTAGE CRITERIA PLUS ST/T ABNORMALITY] Compared to ECG 10/26/2020 16:09:10 Sinus tachycardia no longer present ST (T wave) deviation still present Electronically Signed On 10-26-2020 22:29:31 CDT by Mickie Daimco M.D. [id number]
[2020-10-26 22:59] LABS: Troponin 5 6HR 9.87 ng/L (0-10)
[2020-10-26 23:03] LABS: Troponin 5 6HR Delta -2.13 ng/L (0-12)
[2020-10-26 23:55] LABS: SARS Covid-2 Antigen Negative (Negative)
[2020-10-27] VITALS (30 sets, daily range): BP systolic 102–146; BP diastolic 59–99; PULSE 66–93; RESP 10–25; TEMP 36.7–37; O2SAT 93–100; BMI 42.5
[2020-10-27] MEDS: ipratropium 0.5 mg/2.5 mL Neb INHALATION ×3 (00:38→07:32)
[2020-10-27] MEDS: levalbuterol 0.63 mg/3 mL Neb INHALATION ×3 (00:38→07:32)
[2020-10-27 06:21] LABS: Basophils % 0.2 %; Lymphocytes % 9.1 %; Mean Corpuscular HGB Conc 31.6 g/dL (30.0-36.0); Mean Corpuscular Hemoglobin 28.8 pg (28.0-34.0); Mean Corpuscular Volume 91.3 fL (81-99); Mean Platelet Volume 9.5 fL (7.4-10.4); Monocytes # 0.4 10^3/uL (0.2-0.9); Monocytes % 3.7 %; Neutrophils # 9.67 10^3/uL (1.8-7.7); Neutrophils % 86.2 %; Nucleated Red Blood Cells % 0 %; Platelet Count 382 10^3/cmm (130-400); Red Blood Count 4.16 10^6/uL (4.1-5.3); Red Cell Distribution Width 13.8 % (12.1-15.1); White Blood Count 11.2 10^3/uL (4.0-10.0)
--- NOTE | 2020-10-27 06:36 | PC.NURSE ---
Shift Summary Patient had 900 mls out of urine all evening and no bowel movement. Patient ambulates without assistance to the bathroom and is steady on her feet. She is on 2 liters NC and is alert and oriented x4. Patient reported pain in her hips throughout the night which ranged from a 4 to an 8 on a numeric 1-10 scale. No skin issues were noted at this time. Patient has a left AC IV that is saline locked.
[2020-10-27 06:51] LABS: Alanine Aminotransferase 21 U/L (0-33); Albumin Level 3.8 g/dL (3.5-5.2); Alkaline Phosphatase 65 IU/L (35-105); Anion Gap 14.6 (5-19); Aspartate Amino Transferase 15 U/L (0-32); Blood Urea Nitrogen 16 mg/dL (6-20); Calcium 8.9 mg/dL (8.5-10.5); Carbon Dioxide 26 mmol/L (22-29); Chloride 98 mmol/L (98-107); Globulin 2.9 g/dL (1.3-4.6); Glomerular Filtration Rate 108.6 mL/min (90-130); Glucose 401 mg/dL (65-115); Magnesium 2.3 mg/dL (1.7-2.3); Osmolality Calculated 296 mOsm/kg (285-295); Phosphorus 4.1 mg/dL (2.5-4.5); Potassium 4.6 mmol/L (3.5-5.1); Sodium 134 mmol/L (136-145); Total Bilirubin 0.6 mg/dL (0.15-1.2); Total Protein 6.7 g/dL (6.6-8.7)
--- NOTE | 2020-10-27 07:00 | USCV_ITS ---
Fariha Beard Age: 45 Gender: F : 1975 Exam Date: 10/27/2020 11:07 Ordering Phys: Danielito Torres MD Technologist: Mona Rosa Exam Location: [facility] – [place] Indication: History of pulmonary hypertension and diastolic dysfunction BP: 125 / 66 HR: 84 Rhythm: Sinus Technical Quality: Adequate MEASUREMENTS (Male / Female) Normal Values 2D ECHO LV Diastolic Diameter PLAX 4.4 cm 4.2 - 5.9 / 3.9 - 5.3 cm LV Systolic Diameter PLAX 2.2 cm LV Chamber Size 4.4 cm IVS Diastolic Thickness 2.0 cm 0.6 - 1.0 / 0.6 - 0.9 cm IVS Systolic Thickness 2.0 cm LVPW Diastolic Thickness 1.3 cm 0.6 - 1.0 / 0.6 - 0.9 cm LVPW Systolic Thickness 2.3 cm RV Chamber Size 2.1 cm LVOT Diameter 1.9 cm LV Ejection Fraction 2D Teich 81.9 % LV Ejection Fraction MOD 2C 79.5 % LV Ejection Fraction 2C AL 80.1 % LA Diameter 3.7 cm LA Width 3.7 cm LA Height 5.6 cm RA Width 2.4 cm RA Height 4.1 cm Aorta at Sinotubular Diameter 2.0 cm M-MODE LV Diastolic Diameter MM 6.0 cm 4.2 - 5.9 / 3.9 - 5.3 cm LV Systolic Diameter MM 3.1 cm LV Ejection Fraction MM Teich 79.1 % IVS Diastolic Thickness MM 1.3 cm 0.6 - 1.0 / 0.6 - 0.9 cm IVS Systolic Thickness MM 1.5 cm LVPW Diastolic Thickness MM 1.3 cm 0.6 - 1.0 / 0.6 - 0.9 cm LVPW Systolic Thickness MM 2.5 cm RV Diastolic Diameter MM 0.8 cm Aortic Annulus Diameter 3.2 cm LA Ao Ratio MM 1.4 MV E Point Septal Separation 0.2 cm DOPPLER AV Peak Velocity 196.0 cm/s LVOT Peak Velocity 196.0 cm/s AV Area Cont Eq vti 3.0 cm squared AV Area Cont Eq pk 2.9 cm squared MV Area PHT 3.0 cm squared Mitral E to A Ratio 0.9 MV E' Velocity 46.5 cm/s Mitral E to MV E' Ratio 12.1 Mitral E to LV E' Lateral Ratio 9.4 Mitral E to LV E' Septal Ratio 17.4 TR Peak Velocity 305.0 cm/s TR Peak Gradient 37.2 mmHg Right Atrial Pressure 3.0 mmHg Pulmonary Artery Systolic Pressu 40.2 mmHg PV Peak Velocity 135.0 cm/s RV Acceleration Time 0.1 s RV Ejection Time 0.3 s RV AcT/ET 0.3 FINDINGS Left Ventricle Normal left ventricular size and systolic function, EF 77 %. Mild to moderate left ventricular hypertrophy. No regional wall motion abnormalities. Grade I/IV diastolic dysfunction (abnormal relaxation filling pattern), normal to mildly elevated filling pressures. Right Ventricle The right ventricle is normal in size and function. Right Atrium The right atrium is normal in size. Left Atrium Mildly increased left atrial size. Mitral Valve Thickened mitral valve. Mild-moderate mitral valve regurgitation. Aortic Valve Thickened aortic valve with some restriction of mobility. No significant stenosis. Resting left ventricular outflow tract gradient of 50 mmHg with a peak velocity of 3.54 m/s. With Valsalva, the LV outflow tract velocity went up to 5.86 m/s with a gradient of 137 mmHg. Tricuspid Valve Trace tricuspid valve regurgitation. Mild pulmonary hypertension with estimated pulmonary artery peak systolic pressure of 40 mmHg Pulmonic Valve No gross abnormalities noted Pericardium Normal pericardium without effusion. Aorta Normal ascending aorta dimension. CONCLUSIONS Normal left ventricular size and systolic function, EF 77 %. Mild to moderate left ventricular hypertrophy. No regional wall motion abnormalities. Grade I/IV diastolic dysfunction (abnormal relaxation filling pattern), normal to mildly elevated filling pressures. Features suggestive of hypertrophic obstructive cardiomyopathy with a resting outflow gradient of 50 mmHg and a Valsalva gradient of 137 mmHg. Mildly increased left atrial size. Thickened aortic valve with some restriction of mobility. Trace tricuspid valve regurgitation. Mild pulmonary hypertension with estimated pulmonary artery peak systolic pressure of 40 mmHg. Thickened mitral valve. Mild-moderate mitral valve regurgitation. There is no pericardial effusion. There are no intracardiac masses. No previous study is available for comparison. Dr Gigi Macdonald MD [facility] (Electronically Signed) Final Date: 27 October 2020 12:59 S
[2020-10-27] MEDS: budesonide 0.5 mg/2 mL Neb INHALATION (07:32)
[2020-10-27 07:50] LABS: Estmated Average Glucose 229; Hemoglobin A1C 9.6 % (4.0-6.0)
[2020-10-27] MEDS: insulin glargine 100 units/1 mL 50 UNIT SUBCUT (09:06)
[2020-10-27] MEDS: hydroCHLOROthiazide 25 mg Tablet PO (09:06)
[2020-10-27] MEDS: lisinopril 20 mg Tablet 30 MG PO (09:06)
[2020-10-27] MEDS: benzonatate 100 mg Capsule PO (09:06)
[2020-10-27] MEDS: duloxetine 30 mg Capsule 90 MG PO (09:07)
[2020-10-27] MEDS: pantoprazole DR 40 mg Tablet PO (09:07)
[2020-10-27] MEDS: atorvastatin 40 mg Tablet 20 MG PO (09:07)
[2020-10-27] MEDS: gabapentin 300 mg Capsule PO (09:07)
[2020-10-27] MEDS: fluticasone nasal spray 16gm Btl 1 SPRAY INTRANASAL (09:07)
[2020-10-27] MEDS: TRAMadol 50 mg Tablet 100 MG PO (10:51)
[2020-10-27] MEDS: insulin glargine 100 units/1 mL 10 UNIT SUBCUT (11:24)
[2020-10-27 13:32] LABS: Quest SARS-CoV-2 RNA NOT DETECTED (NOT DETECTED)
--- NOTE | 2020-10-27 13:52 | PM.DCS ---
Discharge Providers Date of Admission: 10/26/20 12:34 Date of Discharge: October 27, 2020 Attending Provider at Admission: Danielito Torres MD Attending Provider at Discharge: Danielito Torres MD Primary Care Provider: ROSALEE Loya Diagnoses at Discharge Discharge Diagnosis (1) Asthmaticus, status: Status: Acute (2) Hypoxia: Status: Acute (3) Lupus (systemic lupus erythematosus): Status: Acute (4) Sarcoidosis: Status: Acute (5) Type 2 diabetes mellitus: Status: Acute (6) HTN (hypertension): Status: Acute (7) Dyslipidemia: Status: Acute (8) Immunocompromised: Status: Acute (9) HOCM (hypertrophic obstructive cardiomyopathy): Status: Acute Reason for Visit Reason for Visit: ASTHMA EXACERBATION Hospital Course Hospital Course Fariha Beard is a 45 year old female with past medical history of SLE, sarcoidosis, immunocompromised, asthma, type 2 diabetes mellitus, hypertension, dyslipidemia who follows up 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 Patient states this all started for her on Thursday night(today is Thursday) when she woke up with hypoglycemia. Since then she has been having occasional chest tightness and worsening difficulty in breathing. She complains of occasional chest pain. Denies any changes in medications. Denies any allergic reaction. She has been having occasional runny nose and was concerned was having a flu for which she went to her local PCP when Covid was tested on Thursday which came back negative. Patient has a sick contact and her son who has been having symptoms similar to strep throat for last 2 weeks. Denies any other sick contacts, exposure to COVID-19, recent travels. She has not had COVID-19 vaccination yet. She denies any subjective feeling fever. Blood work in the ER showed a white count 7.3, hemoglobin of 12.4, platelet #415, sodium of 138, potassium of 3, chloride of 100, creatinine of 0.7, AST/ALT of 20/21, protein of 6.6. Chest x-ray done as below. Patient will go the ICU for treatment of status asthmaticus. She was started on [id number] nebulization and IV steroids. Due to history of immunocompromisation from medications of sarcoidosis and SLE. Various infective causes were ruled out including Legionella, negative bacterial antigen, negative for rapid strep. Sputum culture, blood culture, urine culture, respiratory viral panel, fungi tell are pending. COVID-19 PCR was negative. Patient responded well to the treatment and is currently on room air. Patient was advised to monitor for 1 more day while IV steroids were transitioned over to oral but she was eager to be discharged so she is being discharged with advised to come back to the ER if she is having difficulty in breathing again. Patient is at high risk of readmission. Her hospital stay was otherwise unremarkable. She is advised not to take her medications for SLE and sarcoidosis for next 2 days. On admission patient had EKG changes consistent with left ventricular hypertrophy for which he underwent echocardiogram which is concerning for HOCM. Patient has been started on calcium channel chelsie for the same and is advised to follow-up with cardiology service as an outpatient. Patient's care plan was discussed in detail with patient at bedside. She is agreeable to the same. Physical Exam Narrative: EXAM NARRATIVE: General: AOx3, no acute distress HEENT: PERRLA, pupils bilaterally equal and reactive Chest: Normal vesicular breath sounds, bilateral extensive rhonchi, decreased air entry bilaterally CVS: S1-S2 regular, no murmurs, tachycardia, no gallops, no rubs Abdomen: Soft, nontender, no organomegaly, bowel sounds present Neuro: No focal deficits, no facial deformity, AO x3, power 5/5 in all limbs Discharge Data Data Completed and Pending: Completed Studies During Hospitalization Category Date Time Status CT chest wo con 7 1250 Routine Cat Scan 10/26/20 14:03 Completed XR chest 1V cheyanne ble [id number] Stat Exams 10/26/20 10:38 Completed CV echo complete* [id number] Routine Ultrasound 10/27/20 07:00 Completed Pending at discharge Category Date Time Status Angiotensin Conve rting Enzyme Routi ne Lab 10/26/20 16:22 Received Anti-streptolysin O Stat Lab 10/26/20 16:22 Received Complete Blood Co unt w/Auto AM LABS Lab 10/28/20 04:00 Ordered Fungitell Glucan Assay Routine Lab 10/26/20 16:20 Received C DEDRA Profile R outine Lab 10/26/20 16:22 Received Respiratory Viral Panel PCR Stat Lab 10/26/20 18:25 Received Streptococcus Cul ture Group A Stat Lab 10/26/20 16:55 Received Urine Culture Rou terra Lab 10/26/20 15:50 Received Pertinent Labs During Stay 10/26/20 10/26/20 10/26/20 11:20 11:20 16:22 ESR 22 H Hemoglobin A1c Iron 75 TIBC 325 % Saturation 23.0 C-Reactive Protein NT-Pro-B Natriuret Pep 183 H Procalcitonin 0.03 TSH 3.43 10/26/20 10/27/20 16:22 06:02 ESR Hemoglobin A1c 9.6 H Iron TIBC % Saturation C-Reactive Protein 2.0 NT-Pro-B Natriuret Pep Procalcitonin TSH Abnormal lab results 10/26/20 10/26/20 10/26/20 Range/Units 11:20 15:50 16:11 WBC (4.0-10.0) 10^3/ uL Neut # (Auto) (1.8-7.7) 10^3/u L ESR (0-15) mm/hr ABG pCO2 34.1 L (35-45) mmHg ABG pO2 77.8 L (80.0-100.0) mmH g ABG HCO3 20.5 L (22-26) mmol/L ABG Base Excess -3.8 L (-2.0-2.0) mmol/ L A-a O2 Gradient 3.7 L (5-10) mmHg Methemoglobin < 0.0 L (0.4-1.5) % Glucose 424.0 H (70-115) mg/dL Sodium (136-145) mmol/L POC Glucose (70-110) mg/dL Hemoglobin A1c (4.0-6.0) % Calculated Osmolal ity (285-295) mOsm/k g Lactate Dehydrogen ase (135-214) U/L Troponin T Baselin e (0-10) ng/L Troponin T 120 Min [place] (0-10) ng/L Troponin T Hi Sens 6Hr Delta (0-12) ng/L NT-Pro-B Natriuret Pep 183 H (0-125) pg/mL Urine Blood 3+ H (Negative) Urine RBC 25-40 H (0-2) /hpf Urine WBC 0-4 H (0-5) /hpf Ur Squamous Epith Cells 0-4 H (0-5) /hpf 10/26/20 10/26/20 10/26/20 Range/Units 16:22 16:22 16:22 WBC (4.0-10.0) 10^3/ uL Neut # (Auto) (1.8-7.7) 10^3/u L ESR 22 H (0-15) mm/hr ABG pCO2 (35-45) mmHg ABG pO2 (80.0-100.0) mmH g ABG HCO3 (22-26) mmol/L ABG Base Excess (-2.0-2.0) mmol/ L A-a O2 Gradient (5-10) mmHg Methemoglobin (0.4-1.5) % Glucose (70-115) mg/dL Sodium (136-145) mmol/L POC Glucose (70-110) mg/dL Hemoglobin A1c (4.0-6.0) % Calculated Osmolal ity (285-295) mOsm/k g Lactate Dehydrogen ase 294 H (135-214) U/L Troponin T Baselin e 12 H (0-10) ng/L Troponin T 120 Min [place] (0-10) ng/L Troponin T Hi Sens 6Hr Delta (0-12) ng/L NT-Pro-B Natriuret Pep (0-125) pg/mL Urine Blood (Negative) Urine RBC (0-2) /hpf Urine WBC (0-5) /hpf Ur Squamous Epith Cells (0-5) /hpf 10/26/20 10/26/20 10/26/20 Range/Units 17:20 18:25 20:44 WBC (4.0-10.0) 10^3/ uL Neut # (Auto) (1.8-7.7) 10^3/u L ESR (0-15) mm/hr ABG pCO2 (35-45) mmHg ABG pO2 (80.0-100.0) mmH g ABG HCO3 (22-26) mmol/L ABG Base Excess (-2.0-2.0) mmol/ L A-a O2 Gradient (5-10) mmHg Methemoglobin (0.4-1.5) % Glucose (70-115) mg/dL Sodium (136-145) mmol/L POC Glucose 473 H 398 H (70-110) mg/dL Hemoglobin A1c (4.0-6.0) % Calculated Osmolal ity (285-295) mOsm/k g Lactate Dehydrogen ase (135-214) U/L Troponin T Baselin e (0-10) ng/L Troponin T 120 Min [place] 12.59 H (0-10) ng/L Troponin T Hi Sens 6Hr Delta (0-12) ng/L NT-Pro-B Natriuret Pep (0-125) pg/mL Urine Blood (Negative) Urine RBC (0-2) /hpf Urine WBC (0-5) /hpf Ur Squamous Epith Cells (0-5) /hpf 10/26/20 10/27/20 10/27/20 Range/Units 22:29 06:02 06:02 WBC 11.2 H (4.0-10.0) 10^3/ uL Neut # (Auto) 9.67 H (1.8-7.7) 10^3/u L ESR (0-15) mm/hr ABG pCO2 (35-45) mmHg ABG pO2 (80.0-100.0) mmH g ABG HCO3 (22-26) mmol/L ABG Base Excess (-2.0-2.0) mmol/ L A-a O2 Gradient (5-10) mmHg Methemoglobin (0.4-1.5) % Glucose 401 H (70-115) mg/dL Sodium 134 L (136-145) mmol/L POC Glucose (70-110) mg/dL Hemoglobin A1c (4.0-6.0) % Calculated Osmolal ity 296 H (285-295) mOsm/k g Lactate Dehydrogen ase (135-214) U/L Troponin T Baselin e (0-10) ng/L Troponin T 120 Min [place] (0-10) ng/L Troponin T Hi Sens 6Hr Delta -2.13 L (0-12) ng/L NT-Pro-B Natriuret Pep (0-125) pg/mL Urine Blood (Negative) Urine RBC (0-2) /hpf Urine WBC (0-5) /hpf Ur Squamous Epith Cells (0-5) /hpf 10/27/20 Range/Units 06:02 WBC (4.0-10.0) 10^3/ uL Neut # (Auto) (1.8-7.7) 10^3/u L ESR (0-15) mm/hr ABG pCO2 (35-45) mmHg ABG pO2 (80.0-100.0) mmH g ABG HCO3 (22-26) mmol/L ABG Base Excess (-2.0-2.0) mmol/ L A-a O2 Gradient (5-10) mmHg Methemoglobin (0.4-1.5) % Glucose (70-115) mg/dL Sodium (136-145) mmol/L POC Glucose (70-110) mg/dL Hemoglobin A1c 9.6 H (4.0-6.0) % Calculated Osmolal ity (285-295) mOsm/k g Lactate Dehydrogen ase (135-214) U/L Troponin T Baselin e (0-10) ng/L Troponin T 120 Min [place] (0-10) ng/L Troponin T Hi Sens 6Hr Delta (0-12) ng/L NT-Pro-B Natriuret Pep (0-125) pg/mL Urine Blood (Negative) Urine RBC (0-2) /hpf Urine WBC (0-5) /hpf Ur Squamous Epith Cells (0-5) /hpf Addt'l Data from Hospital Stay: Laboratory Results WBC 11.2 10^3/uL (4.0 -10.0) H 10/27/20 06:02 RBC 4.16 10^6/uL (4.1 -5.3) 10/27/20 06:02 Hgb 12.0 g/dL (11.5-1 5.3) 10/27/20 06:02 Hct 38.0 % (37.0-47.0 ) 10/27/20 06:02 MCV 91.3 fL (81-99) 10/27/20 06:02 MCH 28.8 pg (28.0-34. 0) 10/27/20 06:02 MCHC 31.6 g/dL (30.0-3 6.0) 10/27/20 06:02 RDW 13.8 % (12.1-15.1 ) 10/27/20 06:02 Plt Count 382 10^3/cmm (130 -400) 10/27/20 06:02 MPV 9.5 fL (7.4-10.4) 10/27/20 06:02 Neut % (Auto) 86.2 % 10/27/20 06:02 Lymph % (Auto) 9.1 % 10/27/20 06:02 [place] % (Auto) 3.7 % 10/27/20 06:02 Eos % (Auto) 0.0 % 10/27/20 06:02 Baso % (Auto) 0.2 % 10/27/20 06:02 Neut # (Auto) 9.67 10^3/uL (1.8 -7.7) H 10/27/20 06:02 Lymph # (Auto) 1.0 10^3/uL (0.8- 4.8) 10/27/20 06:02 [place] # (Auto) 0.4 10^3/uL (0.2- 0.9) 10/27/20 06:02 Eos # (Auto) 0.0 10^3/uL (0.0- 0.8) 10/27/20 06:02 Baso # (Auto) 0.0 10^3/uL (0.0- 0.1) 10/27/20 06:02 Nucleated RBC % (a uto) 0 % 10/27/20 06:02 Nucleated RBCs # 0.0 /100WBC 10/27/20 06:02 ESR 22 mm/hr (0-15) H 10/26/20 16:22 D-Dimer 0.43 ug/mIFEU (0- 0.59) 10/26/20 09:40 Specimen Type Arterial 10/26/20 16:11 Sample Site Radial, left 10/26/20 16:11 ABG pH 7.39 (7.35-7.45) 10/26/20 16:11 ABG pCO2 34.1 mmHg (35-45) L 10/26/20 16:11 ABG pO2 77.8 mmHg (80.0-1 00.0) L 10/26/20 16:11 ABG HCO3 20.5 mmol/L (22-2 6) L 10/26/20 16:11 ABG O2 Saturation 96.3 10/26/20 16:11 ABG Base Excess -3.8 mmol/L (-2.0 -2.0) L 10/26/20 16:11 [place] Test Pos 10/26/20 16:11 A-a O2 Gradient 3.7 mmHg (5-10) L 10/26/20 16:11 Hematocrit 37.3 % (37-47) 10/26/20 16:11 Hgb O2 Saturation 95.6 % (95-100) 10/26/20 16:11 Carboxyhemoglobin 0.8 %THgb (0.4-20 .1) 10/26/20 16:11 Methemoglobin < 0.0 % (0.4-1.5) L 10/26/20 16:11 Total Hemoglobin 12.2 g/dL (12-16) 10/26/20 16:11 Sodium 138.0 mmol/L (131 -143) 10/26/20 16:11 Potassium 3.8 mmol/L (3.5-5 .0) 10/26/20 16:11 Glucose 424.0 mg/dL (70-1 15) H 10/26/20 16:11 Ionized Calcium 1.2 mmol/L (1.1-1 .4) 10/26/20 16:11 O2 Delivery Device Room air 10/26/20 16:11 FiO2 21.0 % 10/26/20 16:11 Dye Beck Reel Operator ID Cak 10/26/20 16:11 Sodium 134 mmol/L (136-1 45) L 10/27/20 06:02 Potassium 4.6 mmol/L (3.5-5 .1) 10/27/20 06:02 Chloride 98 mmol/L (98-107 ) 10/27/20 06:02 Carbon Dioxide 26 mmol/L (22-29) 10/27/20 06:02 Anion Gap 14.6 (5-19) 10/27/20 06:02 BUN 16 mg/dL (6-20) 10/27/20 06:02 Creatinine 0.6 mg/dL (0.5-0. 9) 10/27/20 06:02 GFR Calculation 108.6 mL/min (90- 130) 10/27/20 06:02 Glucose 401 mg/dL (65-115 ) H 10/27/20 06:02 POC Glucose 398 mg/dL (70-110 ) H 10/26/20 20:44 Estimat Average Gl ucose 229 10/27/20 06:02 Hemoglobin A1c 9.6 % (4.0-6.0) H 10/27/20 06:02 Calculated Osmolal ity 296 mOsm/kg (285- 295) H 10/27/20 06:02 Calcium 8.9 mg/dL (8.5-10 .5) 10/27/20 06:02 Phosphorus 4.1 mg/dL (2.5-4. 5) 10/27/20 06:02 Magnesium 2.3 mg/dL (1.7-2. 3) 10/27/20 06:02 Iron 75 ug/dL (37-145) 10/26/20 11:20 TIBC 325 mcg/dl 10/26/20 11:20 % Saturation 23.0 % (20-50) 10/26/20 11:20 Unsat Iron Binding 250 ug/dL (112-34 7) 10/26/20 11:20 Total Bilirubin 0.6 mg/dL (0.15-1 .2) 10/27/20 06:02 AST 15 U/L (0-32) 10/27/20 06:02 ALT 21 U/L (0-33) 10/27/20 06:02 Alkaline Phosphata se 65 IU/L (35-105) 10/27/20 06:02 Lactate Dehydrogen ase 294 U/L (135-214) H 10/26/20 16:22 Troponin T Baselin e 12 ng/L (0-10) H 10/26/20 16:22 Troponin T 120 Min [place] 12.59 ng/L (0-10) H 10/26/20 18:25 Delta Troponin T 0.59 ABS# (0-10) 10/26/20 18:25 Troponin T Hi Sens 6Hr 9.87 ng/L (0-10) 10/26/20 22:29 Troponin T Hi Sens 6Hr Delta -2.13 ng/L (0-12) L 10/26/20 22:29 C-Reactive Protein 2.0 mg/L (0.0-4.9 ) 10/26/20 16:22 NT-Pro-B Natriuret Pep 183 pg/mL (0-125) H 10/26/20 11:20 Total Protein 6.7 g/dL (6.6-8.7 ) 10/27/20 06:02 Albumin 3.8 g/dL (3.5-5.2 ) 10/27/20 06:02 Globulin 2.9 g/dL (1.3-4.6 ) 10/27/20 06:02 Procalcitonin 0.03 ng/mL (0-0.5 ) 10/26/20 11:20 TSH 3.43 uIU/mL (0.27 -4.20) 10/26/20 11:20 Urine Color Yellow (Yellow) 10/26/20 15:50 Urine Appearance Sl hazy (CLEAR) 10/26/20 15:50 Urine pH 5 (5-7) 10/26/20 15:50 Ur Specific Gravit y 1.005 (1.005-1.0 30) 10/26/20 15:50 Urine Protein Neg (Negative) 10/26/20 15:50 Urine Glucose (UA) 2+ (Normal) 10/26/20 15:50 Urine Ketones Negative (Negati ve) 10/26/20 15:50 Urine Blood 3+ (Negative) H 10/26/20 15:50 Urine Nitrate Negative (Negati ve) 10/26/20 15:50 Urine Bilirubin Neg (Negative) 10/26/20 15:50 Urine Urobilinogen Norm mg/dL (Negat lisa) 10/26/20 15:50 Ur Leukocyte Klaudia ase Negative (Negati ve) 10/26/20 15:50 Urine RBC 25-40 /hpf (0-2) H 10/26/20 15:50 Urine WBC 0-4 /hpf (0-5) H 10/26/20 15:50 Ur Squamous Epith Cells 0-4 /hpf (0-5) H 10/26/20 15:50 Amorphous Sediment Not Reportable 10/26/20 15:50 Urine Bacteria Trace /hpf (NONE) 10/26/20 15:50 Nasal/Oral COVID-1 9 PCR Cancelled 10/26/20 12:45 Influenza Type A A g Negative (Negati ve) 10/26/20 16:55 Influenza Type B A g Negative (Negati ve) 10/26/20 16:55 SARS-CoV-2 RNA (RT -PCR) Not detected (NO T DETECTED) 10/26/20 12:45 SARS-CoV-2 Ag (Rap id) Negative (Negati ve) 10/26/20 23:21 Group A Strep Rapi d Negative (Negati ve) 10/26/20 16:55 Beta-(1,3)-D-Gluca n Cancelled 10/26/20 16:22 B-(1,3)-D-Glucan I ntrp Cancelled 10/26/20 16:22 Impressions Chest X-Ray 10/26/20 10:38 IMPRESSION: Unremarkable chest radiograph. Chest CT 10/26/20 14:03 IMPRESSION: 1. No focal acute airspace disease. 2. Stable right lung pulmonary micronodules. Radiation Dose CTDIVOL = (mGy): DLP = 889.14 (mGy-cm) Microbiology 10/26/20 15:50 Nose MRSA Culture - Final 10/26/20 15:50 Urine Kidney Bacterial Antigens - Final 10/26/20 15:50 Urine,Voided Legionella Urinary Antigen - Final Pending at discharge Category Date Time Status Angiotensin Conve rting Enzyme Routi ne Lab 10/26/20 16:22 Received Anti-streptolysin O Stat Lab 10/26/20 16:22 Received Complete Blood Co unt w/Auto AM LABS Lab 10/28/20 04:00 Ordered Fungitell Glucan Assay Routine Lab 10/26/20 16:20 Received [facility] DEDRA Profile R outine Lab 10/26/20 16:22 Received Respiratory Viral Panel PCR Stat Lab 10/26/20 18:25 Received Streptococcus Cul ture Group A Stat Lab 10/26/20 16:55 Received Urine Culture Rou terra Lab 10/26/20 15:50 Received ECHOCARDIOGRAM CONCLUSIONS Normal left ventricular size and systolic function, EF 77 %. Mild to moderate left ventricular hypertrophy. No regional wall motion abnormalities. Grade I/IV diastolic dysfunction (abnormal relaxation filling pattern), normal to mildly elevated filling pressures. Features suggestive of hypertrophic obstructive cardiomyopathy with a resting outflow gradient of 50 mmHg and a Valsalva gradient of 137 mmHg. Mildly increased left atrial size. Thickened aortic valve with some restriction of mobility. Trace tricuspid valve regurgitation. Mild pulmonary hypertension with estimated pulmonary artery peak systolic pressure of 40 mmHg. Thickened mitral valve. Mild-moderate mitral valve regurgitation. There is no pericardial effusion. There are no intracardiac masses. No previous study is available for comparison. Vitals: Last Vital Signs Temp 98.2 F 10/27/20 08:00 Pulse 93 10/27/20 13:00 Resp 20 H 10/27/20 12:00 BP 111/72 10/27/20 13:00 Pulse Ox 100 10/27/20 13:00 Discharge Plan Discharge Patient Disposition: Home Condition: Stable Prescriptions: New Cardizem CD 120 mg capsule,extended release 24hr 120 mg PO DAILY Qty: 30 RF: 0 prednisone 10 mg tablet See Taper mg PO DAILY Qty: 60 RF: 0 Continued multivitamin [Multiple Vitamins] Tablet 1 tab PO DAILY RF: 0 potassium chloride 10 mEq Tablet Extended Release 10 meq PO DAILY PRN (Reason: unknown) RF: 0 azathioprine 50 mg Tablet See Rx Instructions .ROUTE .COMPLEX RF: 0 omeprazole 40 mg Capsule,Delayed Release(Dr/Ec) 40 mg PO DAILY RF: 0 tramadol 50 mg Tablet 50 mg PO Q4H PRN (Reason: Pain) RF: 0 lisinopril 30 mg Tablet 30 mg PO DAILY RF: 0 vitamin B complex Tablet 1 tab PO DAILY RF: 0 acyclovir 200 mg Capsule 200 mg PO TID PRN (Reason: Outbreak) RF: 0 hydrochlorothiazide 25 mg Tablet 25 mg PO DAILY RF: 0 mupirocin 2 % Ointment 1 applic TOPICAL PRN RF: 0 furosemide [Lasix] 20 mg Tablet 20 mg PO DAILY PRN (Reason: Edema) RF: 0 epinephrine 0.3 mg/0.3 mL auto-injector See Rx Instructions .ROUTE .COMPLEX RF: 0 insulin aspart U-100 [Novolog Flexpen U-100 Insulin] 100 unit/mL (3 mL) Insulin Pen See Rx Instructions .ROUTE .COMPLEX RF: 0 duloxetine [Cymbalta] 30 mg Capsule,Delayed Release(Dr/Ec) 90 mg PO DAILY RF: 0 Lantus Solostar U-100 Insulin 100 unit/mL (3 mL) Insulin Pen 50 unit SUBCUT DAILY RF: 0 calcium carbonate-vitamin D3 [Calcium 600 with Vitamin D3] 600 mg(1,500mg) -500 unit Capsule 1 cap PO DAILY RF: 0 Humira(CF) Pen 40 mg/0.4 mL Pen Injector Kit 40 mg SUBCUT Q7D RF: 0 atorvastatin [Lipitor] 20 mg Tablet 20 mg PO DAILY RF: 0 tizanidine 4 mg Tablet 4 mg PO TID PRN (Reason: Muscle Pain) RF: 0 gabapentin 300 mg Capsule 300 mg PO TID RF: 0 albuterol sulfate 90 mcg/actuation Hfa Aerosol Inhaler 2 puff INHALATION 6XD PRN (Reason: Shortness Of Breath) RF: 0 fluticasone propionate 50 mcg/actuation [place],Suspension 1 spray INTRANASAL BID PRN (Reason: Nasal Congestion) RF: 0 Vitamin D3 25 mcg (1,000 unit) Tablet 75 mcg PO DAILY RF: 0 Vitamin B-12 5,000 mcg Tablet, Sublingual 5,000 mcg SUBLINGUAL DAILY RF: 0 Discontinued prednisone 5 mg Tablet 10 mg PO DAILY RF: 0 Levaquin 750 mg Tablet 750 mg PO DAILY RF: 0 rosuvastatin 5 mg tablet 5 mg PO DAILY RF: 0 Discharge Orders: Discharge Order (Routine); Ordered 10/27/20 Ordered By: Danielito Torres Referrals: Gigi Macdonald MD [Physician] - 2 weeks (HOCM) Krystle Morse MD [Physician] - 2 months Marcello Abdullahi MD [Physician] - 2 weeks Discharge Diet: Cardiac Discharge Activity: Resume usual activity Patient Instructions: Opioid Safety Activity Restrictions/Additional Instructions: Follow-up with your primary care provider in the next 1 week.. Follow-up with cardiology within 2 weeks for further management of hypertrophic obstructive cardiomyopathy. Follow-up with pulmonology and endocrine as discussed. You should be on a steroid taper as prescribed to you. Please monitor your symptoms closely. If you have any difficulty in breathing more than usual please come to the ER. Please do not take Actemra and azathioprine for next 2 days. Discharge Attestations Time Spent in Discharge Care*: greater than 30 min Specific Discharge Activities: educating patient, educating and/or supporting family/caregiver, discussing with pcp/other providers, discussing with welfare case worker/social workers/dc planners, documenting/other paperwork and evaluating patient/reviewing data Status at Discharge: Cognitive status at discharge: cognitively intact, Behavioral status at discharge: cooperative, Functional status at discharge: independent ambulation Overall status at discharge: patient is back to baseline Quality Metrics Clinical Quality Measures During this hospital stay, did patient experience: None Coding Level of Care Code Acute Chg FW DC note Diagnoses Asthmaticus, status J45.902 Hypoxia R09.02 Lupus (systemic lupus erythematosus) M32.9 Sarcoidosis D86.9 Type 2 diabetes mellitus E11.9 HTN (hypertension) I10 Dyslipidemia E78.5 Immunocompromised D84.9 HOCM (hypertrophic obstructive cardiomyopathy) I42.1
[2020-10-27 15:22] LABS: Glucose Point of Care 400 mg/dL (70-110)
[2020-10-27 15:22] LABS: Glucose Point of Care 371 mg/dL (70-110)
== END 2020-10-27 15:06 | disposition home or self-care (01) | DRG 202 ==
LOC: ER 11:02 → ICU 18:05
PROVIDERS: Admitting Provider Student in an Organized Health Care Education/Training Program; Emergency Provider Family Medicine; PCP Nurse Practitioner Family; Visit Provider Student in an Organized Health Care Education/Training Program
DX: J45.902 Unspecified asthma with status asthmaticus (principal); I42.1 Obstructive hypertrophic cardiomyopathy; E87.6 Hypokalemia; M32.9 Systemic lupus erythematosus, unspecified; D86.9 Sarcoidosis, unspecified; E11.65 Type 2 diabetes mellitus with hyperglycemia; I10 Essential (primary) hypertension; E78.5 Hyperlipidemia, unspecified; Z87.891 Personal history of nicotine dependence; Z79.4 Long term (current) use of insulin; Z79.51 Long term (current) use of inhaled steroids
CPT/HCPCS: 36415; 36416; 36600; 71045; 71250; 80051; 80053; 81001; 82164; 82330; 82805; 82962; 83036; 83540; 83550; 83615; 83735; 83880; 84100; 84145; 84443; 84484; 85025; 85378; 85651; 86060; 86140; 86225; 86235; 86403; 87081; 87086; 87426; 87449; 87635; 87641; 87804; 87880; 93005; 93306; 94640; 96372; 96374; 99285; J1650; J1815 ×2; J2920; J2930; J3475; J7614; J7626; J7644

== ENCOUNTER 2021-08-29 08:52 | Emergency (ER) | payer MEDICARE, MEDICAID, SELFPAY ==
[2021-08-29 09:10] VITALS: BP 124/82; PULSE 89; RESP 22; TEMP 37.8; O2SAT 98; BMI 48.1
--- NOTE | 2021-08-29 10:04 | ECG_ITS ---
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 Measurements Intervals [place] Rate: 103 P: 52 HI: 173 QRS: 23 QRSD: 90 T: 152 QT: 320 QTc: 420 Interpretive Statements SINUS TACHYCARDIA POSSIBLE LEFT ATRIAL ENLARGEMENT [-0.1mV P-WAVE IN V1/V2] LEFT VENTRICULAR HYPERTROPHY AND ST-T CHANGE [VOLTAGE CRITERIA PLUS ST/T ABNORMALITY] Compared to ECG 10/26/2020 21:07:26 Sinus rhythm no longer present ST (T wave) deviation still present Electronically Signed On 08-29-2021 16:44:43 CDT by Mickie Damico M.D. [email or web address]
--- NOTE | 2021-08-29 10:04 | XR_ITS ---
WS: [id number] Exam: XR chest 1V portable [id number] Date/Time of Exam: 08/29/2021 10:04 AM Reason For Exam: shortness of breath Comparison 10/26/2020. Lungs are clear and fully expanded. Normal cardiomediastinal silhouette. No pleural effusions. Bony e lements are intact. XR/XR chest 1V portable [id number] IMPRESSION: 1. Negative chest.
--- NOTE | 2021-08-29 10:44 | W.ED.SOB ---
HPI - SOB/Dyspnea General: Chief Complaint: Shortness of Breath/Dyspnea Stated Complaint: sob Time Seen by Provider: 08/29/21 09:22 History of Present Illness: HPI Narrative: 45-year-old female presents emergency room department chief complaint of 1 week progressive shortness of breath difficulty breathing patient reports that she believes that her sarcoidosis is acting up. She reports that she was on chronic steroids however is not currently due to having issues with being on them she reports that her inhaler is not helping and reports having a productive cough with right-sided rib pain. Patient reports no known history of any cardiac issues reports history of PVCs however reports no recent medication changes reporting no other associated issues besides being somewhat hyperglycemic recently with her sugars in the 300 mg/dl range. Associated symptoms: Reports chest congestion; Deny abdominal pain, chest pain, extremity pain, fever(s), nausea, palpitations or vomiting Review of Systems General: Reports: 10 or more systems reviewed and unremarkable except in HPI and below Const: Denies: fever(s), chills, fatigue or malaise Eyes: Denies: change in vision or blurry vision Card: Denies: chest pain or palpitations Resp: Reports: dyspnea, productive cough, wheezing and chest congestion GI: Denies: abdominal pain, nausea or vomiting : Denies: flank pain Musc: Denies: extremity pain or extremity swelling Skin/Breast: Denies: rash or pruritus Neuro: Denies: headache(s) Psych: Denies: anxiety or depression David/Lymph: Denies: easy bleeding All/Imm: Denies: urticaria, throat swelling or facial swelling PFS ED PFSH: Medical History Asthma Asthma exacerbation Dyslipidemia HOCM (hypertrophic obstructive cardiomyopathy) HTN (hypertension) Immunocompromised Lupus (systemic lupus erythematosus) Sarcoidosis Type 2 diabetes mellitus Family History Denies family history of Diabetes CAD (coronary artery disease) Chronic kidney disease (CKD) Cancer Social History Smoking and tobacco status: former smoker Alcohol intake: never Lives independently: No Household members: family Housing: House Female Reproductive History: Date of last menstrual period: 10/26/20 Physical Exam Const: COMMON NORMALS: no acute distress, patient oriented x3 and healthy appearing HENMT: COMMON NORMALS: normocephalic and atraumatic HEAD & SCALP: normocephalic and atraumatic Eye: COMMON NORMALS: Equal, round and reactive pupils present and EOMs intact bilaterally PUPIL: Yes Equal, round and reactive pupils present Neck/C-Spine: COMMON NORMALS: full ROM, supple and no JVD Lymph: LYMPHATIC: no lymphadenopathy noted Chest: COMMONS NORMALS: normal inspection of the chest and normal palpation of entire chest wall Resp: COMMON NORMALS: normal respiratory effort, No retractions and clear to auscultation bilaterally EFFORT & INSPECTION: Yes able to speak in complete sentences and Yes symmetric chest movement AUSCULTATION: clear to auscultation bilaterally OTHER: Diminished breath sounds appreciated bilaterally with mild questionable scant expiratory wheezing noted Cardio: COMMON NORMALS: no JVD, regular rate and regular rhythm RATE: regular rate RHYTHM: regular rhythm GI: COMMON NORMALS: Normal to inspection, nondistended, normoactive bowel sounds present, Soft to palpation and non-tender INSPECTION: Yes normal to inspection PALPATION: Yes Soft to palpation : COMMON NORMALS: Yes no CVA tenderness BLADDER/KIDNEY EXAM: Yes no CVA tenderness Back/Pelvis: COMMON NORMALS: no CVA tenderness Extremity: COMMON NORMALS: normal to inspection and full ROM Neuro: COMMON NORMALS: patient oriented x3, CN's II-XII intact bilaterally, moves all extremities and no focal motor deficits Psych: COMMON NORMALS: mental status grossly normal, Normal thought process present, cooperative and normal affect THOUGHT PROCESS: Normal thought process present Skin: COMMON NORMALS: no rashes or lesions noted GENERAL SKIN EXAM: no rashes or lesions noted Course Vital Signs: Vital signs: Vital Signs Temperature 100.1 F H 08/29/21 09:10 Pulse Rate 98 08/29/21 11:06 Respiratory Rate 20 H 08/29/21 10:58 Blood Pressure 124/82 08/29/21 09:10 Pulse Oximetry 98 08/29/21 10:58 MDM - SOB/Dyspnea Medical Decision Making Due to the patient's into condition lab work and imaging will be obtained we will continue to follow. My concerns of the patient having an exacerbation of sarcoidosis versus asthmatic exacerbation are prominent we will continue to follow. Patient was found to have consolidation in the right middle lobe this could be indicative of sarcoidosis or any consolidation concerning for pneumonia patient was provided a dose of Rocephin which should be continued antibiotics outpatient for oxygenation continue to maintain in the high 90s throughout her time emergency department patient is up to discharge home upon Rocephin being provided she was continued on steroids as well as neb treatments patient vies further follow-up primary care in 3 to 4 days which is advised to return the interim if any of her symptoms persist or worse. Lab Data : 08/29/21 11:08 08/29/21 11:08 Labs/Radiology: Radiology Impressions Chest X-Ray 08/29/21 10:04 IMPRESSION: 1. Negative chest. Chest CTA 08/29/21 14:02 IMPRESSION: 1. No acute PE. 2. Consolidation versus mass like density in the posterior aspect of right lower lobe as described. Findings may represent pneumonia however imaging follow-up after treatment should be obtained to ensure resolution and to exclude other etiology such as neoplasm. Alveolar sarcoidosis may also be considered. 3. Other nonacute thoracic findings as above. 4. Minimal splenomegaly and hepatic steatosis. Stable right middle lobe nodular density measuring 4-5 mm.For patients at low risk (minimal or absent history of smoking and of other known risk factors), no routine follow-up is indicated. For patients at high risk (history of smoking or of other known risk factors), consider optional CT Chest at 12 months. (Reference: Elena) REFERENCES: Elena Golden, et al. Guidelines for Management of Incidental Pulmonary Nodules Detected on CT Images: From the Fleischner Society 2017. Radiology. 2017;284(1):228-243. Laboratory Results WBC 11.2 10^3/uL (4.0-10.0) H 08/29/21 11:08 RBC 4.35 10^6/uL (4.1-5.3) 08/29/21 11:08 Hgb 13.0 g/dL (11.5-15.3) 08/29/21 11:08 Hct 40.2 % (37.0-47.0) 08/29/21 11:08 MCV 92.4 fl (81-99) 08/29/21 11:08 MCH 29.9 pg (28.0-34.0) 08/29/21 11:08 MCHC 32.3 g/dL (30.0-36.0) 08/29/21 11:08 RDW 13.9 % (12.1-15.1) 08/29/21 11:08 Plt Count 428 10^3/cmm (130-400) H 08/29/21 11:08 MPV 9.1 fL (7.4-10.4) 08/29/21 11:08 Neut % (Auto) 73.2 % 08/29/21 11:08 Lymph % (Auto) 14.8 % 08/29/21 11:08 [place] % (Auto) 9.3 % 08/29/21 11:08 Eos % (Auto) 0.8 % 08/29/21 11:08 Baso % (Auto) 0.5 % 08/29/21 11:08 Neut # (Auto) 8.17 10^3/uL (1.8-7.7) H 08/29/21 11:08 Lymph # (Auto) 1.7 10^3/uL (0.8-4.8) 08/29/21 11:08 [place] # (Auto) 1.0 10^3/uL (0.2-0.9) H 08/29/21 11:08 Eos # (Auto) 0.1 10^3/uL (0.0-0.8) 08/29/21 11:08 Baso # (Auto) 0.1 10^3/uL (0.0-0.1) 08/29/21 11:08 Nucleated RBC % (auto) 0 % 08/29/21 11:08 Nucleated RBCs # 0.0 /100WBC 08/29/21 11:08 Sodium 134 mmol/L (136-145) L 08/29/21 11:08 Potassium 3.8 mmol/L (3.5-5.1) 08/29/21 11:08 Chloride 96 mmol/L (98-107) L 08/29/21 11:08 Carbon Dioxide 26 mmol/L (22-29) 08/29/21 11:08 Anion Gap 15.8 (5-19) 08/29/21 11:08 BUN 14 mg/dL (6-20) 08/29/21 11:08 Creatinine 0.6 mg/dL (0.5-0.9) 08/29/21 11:08 GFR Calculation 108.6 mL/min (90-130) 08/29/21 11:08 Glucose 199 mg/dL (65-115) H 08/29/21 11:08 POC Glucose 210 mg/dL (70-110) H 08/29/21 11:27 Calculated Osmolality 284 mOsm/kg (285-295) L 08/29/21 11:08 Calcium 8.8 mg/dL (8.5-10.5) 08/29/21 11:08 Total Bilirubin 1.1 mg/dL (0.15-1.2) 08/29/21 11:08 AST 12 U/L (0-32) 08/29/21 11:08 ALT 17 U/L (0-33) 08/29/21 11:08 Alkaline Phosphatase 73 IU/L (35-105) 08/29/21 11:08 Troponin T Baseline 12 ng/L (0-10) H 08/29/21 11:08 Troponin T 120 Minute 12.41 ng/L (0-10) H 08/29/21 13:16 Delta Troponin T 0.41 ABS# (0-10) 08/29/21 13:16 NT-Pro-B Natriuret Pep 368 pg/mL (0-125) H 08/29/21 11:08 Total Protein 8.0 g/dL (6.6-8.7) 08/29/21 11:08 Albumin 4.1 g/dL (3.5-5.2) 08/29/21 11:08 Globulin 3.9 g/dL (1.3-4.6) 08/29/21 11:08 Discharge Plan Discharge Patient Disposition: Home Clinical Impression: Sarcoidosis of lung, Pneumonia, Intermittent right-sided chest pain Condition: Stable Prescriptions: New levofloxacin 750 mg tablet 750 mg PO DAILY 7 Days Qty: 7 0RF prednisone 20 mg tablet 20 mg PO BID 7 Days Qty: 14 0RF Ventolin HFA 90 mcg/actuation HFA aerosol inhaler 2 inh inhalation Q6H PRN (Reason: shortness of breath or wheezing) Qty: 6.7 0RF No Action ipratropium bromide 0.02 % solution 2.5 ml inhalation Q6H PRN (Reason: Shortness Of Breath) 0RF multivitamin [Multiple Vitamins] Tablet 1 tab PO DAILY 0RF potassium chloride 10 mEq Tablet Extended Release 10 meq PO DAILY 0RF azathioprine 50 mg Tablet See Rx Instructions .ROUTE .COMPLEX 0RF Rx Instructions: 100 mg po q am and 150MG po q pm omeprazole 40 mg Capsule,Delayed Release(Dr/Ec) 40 mg PO DAILY 0RF tramadol 50 mg Tablet 50 mg PO Q4H PRN (Reason: Pain) 0RF lisinopril 30 mg Tablet 30 mg PO DAILY 0RF hydrochlorothiazide 25 mg Tablet 25 mg PO DAILY 0RF mupirocin 2 % Ointment 1 applic TOPICAL PRN 0RF furosemide [Lasix] 20 mg Tablet 20 mg PO DAILY PRN (Reason: Edema) 0RF epinephrine 0.3 mg/0.3 mL auto-injector See Rx Instructions .ROUTE .COMPLEX 0RF Rx Instructions: use 1 pen as directed prn insulin aspart U-100 [Novolog Flexpen U-100 Insulin] 100 unit/mL (3 mL) Insulin Pen See Rx Instructions .ROUTE .COMPLEX 0RF Rx Instructions: sliding scale subcutaneously as directed Lantus Solostar U-100 Insulin 100 unit/mL (3 mL) Insulin Pen 50 unit SUBCUT DAILY 0RF calcium carbonate-vitamin D3 [Calcium 600 with Vitamin D3] 600 mg(1,500mg) -500 unit Capsule 1 cap PO DAILY 0RF Humira(CF) Pen 40 mg/0.4 mL Pen Injector Kit 40 mg SUBCUT Q7D 0RF Rx Instructions: ON THURSDAY tizanidine 4 mg Tablet 4 mg PO TID PRN (Reason: Muscle Pain) 0RF gabapentin 300 mg Capsule 300 mg PO TID 0RF albuterol sulfate 90 mcg/actuation Hfa Aerosol Inhaler 2 puff INHALATION 6XD PRN (Reason: Shortness Of Breath) 0RF fluticasone propionate 50 mcg/actuation [place],Suspension 1 spray INTRANASAL BID PRN (Reason: Nasal Congestion) 0RF duloxetine 60 mg capsule,delayed release(DR/EC) 60 mg PO BID 0RF montelukast 10 mg tablet 10 mg PO DAILY 0RF magnesium 200 mg Tablet 200 mg PO DAILY 0RF rosuvastatin 5 mg tablet 5 mg PO DAILY 0RF Discharge Orders: Discharge ED (Routine); Ordered 08/29/21 Ordered By: Joao Forde Referrals: Katy Holm FNP [Primary Care Provider] - 1-3 days Discharge Diet: Usual diet Discharge Activity: Increase activity as tolerated Patient Instructions: Sarcoidosis (ED), Pneumonia (ED), Opioid Safety Activity Restrictions/Additional Instructions: Please follow-up with your primary care doctor next 2 to 3 days, take medications as prescribed and please return the interim if any of your symptoms persist or worse. Coding Level of Care Code ED Director Of Plant Operations for Chg Fwd Exam Comprehensive
[2021-08-29 10:58] VITALS: PULSE 90; RESP 20; O2SAT 98
[2021-08-29] MEDS: ipratropium-albuterol 3 mL Neb INHALATION (10:58)
[2021-08-29 11:06] VITALS: PULSE 98
[2021-08-29 11:19] LABS: Basophils # 0.1 10^3/uL (0.0-0.1); Basophils % 0.5 %; Eosinophils # 0.1 10^3/uL (0.0-0.8); Eosinophils % 0.8 %; Hematocrit 40.2 % (37.0-47.0); Lymphocytes # 1.7 10^3/uL (0.8-4.8); Lymphocytes % 14.8 %; Mean Corpuscular HGB Conc 32.3 g/dL (30.0-36.0); Mean Corpuscular Hemoglobin 29.9 pg (28.0-34.0); Mean Corpuscular Volume 92.4 fl (81-99); Mean Platelet Volume 9.1 fL (7.4-10.4); Monocytes % 9.3 %; Neutrophils # 8.17 10^3/uL (1.8-7.7); Neutrophils % 73.2 %; Nucleated Red Blood Cells % 0 %; Platelet Count 428 10^3/cmm (130-400); Red Blood Count 4.35 10^6/uL (4.1-5.3); Red Cell Distribution Width 13.9 % (12.1-15.1); White Blood Count 11.2 10^3/uL (4.0-10.0)
[2021-08-29 11:30] LABS: Glucose Point of Care 210 mg/dL (70-110)
[2021-08-29] MEDS: sodium chloride 0.9% 1,000 ML 100 ML IV (11:36)
[2021-08-29] MEDS: magnesium sulfate premix 2 GM/50 ML PIGGYBACK IV (11:41)
[2021-08-29 11:50] LABS: Troponin(5th) Baseline 12 ng/L (0-10)
[2021-08-29 11:57] LABS: Alanine Aminotransferase 17 U/L (0-33); Albumin Level 4.1 g/dL (3.5-5.2); Alkaline Phosphatase 73 IU/L (35-105); Anion Gap 15.8 (5-19); Aspartate Amino Transferase 12 U/L (0-32); Blood Urea Nitrogen 14 mg/dL (6-20); Calcium 8.8 mg/dL (8.5-10.5); Carbon Dioxide 26 mmol/L (22-29); Chloride 96 mmol/L (98-107); Globulin 3.9 g/dL (1.3-4.6); Glomerular Filtration Rate 108.6 mL/min (90-130); Glucose 199 mg/dL (65-115); NT Pro B Type Natriuretic Pept 368 pg/mL (0-125); Osmolality Calculated 284 mOsm/kg (285-295); Potassium 3.8 mmol/L (3.5-5.1); Sodium 134 mmol/L (136-145); Total Bilirubin 1.1 mg/dL (0.15-1.2)
[2021-08-29 13:38] LABS: Troponin 5 2HR 12.41 ng/L (0-10)
[2021-08-29 13:40] LABS: Troponin 5 2HR Delta 0.41 ABS# (0-10)
--- NOTE | 2021-08-29 14:02 | CTR_ITS ---
PROCEDURE INFORMATION: Exam: CTA Chest With Contrast Exam date and time: 08/29/2021 2:49 PM Age: 45 years old Clinical indication: Shortness of breath; Patient HX: SOB x 2 days PT has asthma sarcoidosis lupus; Additional info: Chest pain with shortness of breath TECHNIQUE: Imaging protocol: Computed tomographic angiography of the chest with contrast. 3D rendering (Not supervised by radiologist): MIP and/or 3D reconstructed images were created by the technologist. Radiation optimization: All CT scans at this facility use at least one of these dose optimization techniques: automated exposure control; mA and/or kV adjustment per patient size (includes targeted exams where dose is matched to clinical indication); or iterative reconstruction. Contrast material: [id number]; Contrast volume: 95 ml; Contrast route: INTRAVENOUS (IV); COMPARISON: CT angio chest PE protcl [id number] 06/08/2019 12:10 PM RADIATION DOSE METRICS: Total DLP (mGy-cm): 491.2 FINDINGS: Pulmonary arteries: There is no pulmonary embolism in the central-proximal segmental branches. Assessment of the peripheral subsegmental small branches is limited. Aorta: No aortic aneurysm. No aortic dissection. Lungs: There is a patchy consolidation versus mass like density in the posterior aspect of right lower lobe measuring 3.3 x 1.8 cm cross-section and 2.5 cm craniocaudad. No other lung consolidation or ground-glass opacities are identified. Scattered small linear subsegmental atelectasis-scarring is present in the left lung base. Stable tiny nodular density abutting the right cardiac border in the anteromedial right middle lobe, measuring 4-5 mm, unchanged. Pleural spaces: Unremarkable. No pneumothorax. No pleural effusion. Heart: Mild cardiomegaly. No vascular congestion. Lymph nodes: Nonenlarged calcified left hilar lymph node is noted consistent with chronic granulomatous disease. No enlarged mediastinal hilar lymph nodes are otherwise identified. The largest lymph node measures 9 mm short axis in the right infrahilar region. Liver: Hepatic steatosis. Spleen: Minimal splenomegaly. Bones/joints: No acute fracture. Soft tissues: Unremarkable. CT/CT angio chest PE protcl [id number] IMPRESSION: 1. No acute PE. 2. Consolidation versus mass like density in the posterior aspect of right lower lobe as described. Findings may represent pneumonia however imaging follow-up after treatment should be obtained to ensure resolution and to exclude other etiology such as neoplasm. Alveolar sarcoidosis may also be considered. 3. Other nonacute thoracic findings as above. 4. Minimal splenomegaly and hepatic steatosis. Stable right middle lobe nodular density measuring 4-5 mm.For patients at low risk (minimal or absent history of smoking and of other known risk factors), no routine follow-up is indicated. For patients at high risk (history of smoking or of other known risk factors), consider optional CT Chest at 12 months. (Reference: Elena) REFERENCES: Elena Golden, et al. Guidelines for Management of Incidental Pulmonary Nodules Detected on CT Images: From the Fleischner Society 2017. Radiology. 2017;284(1):228-243.
[2021-08-29] MEDS: iohexol 350 mg/mL 100 mL Btl IV (14:52)
[2021-08-29] MEDS: cefTRIAXone 1,000 MG in sodium chloride 0.9% (plus) 50 ML 100 MG IV (16:12)
[2021-08-29 17:32] VITALS: BP 128/84; PULSE 106; RESP 14; O2SAT 99
== END 2021-08-29 17:19 | disposition home or self-care (01) ==
PROVIDERS: Emergency Provider Emergency Medicine; PCP Nurse Practitioner Family
DX: D86.0 Sarcoidosis of lung (principal); E11.65 Type 2 diabetes mellitus with hyperglycemia; Z87.891 Personal history of nicotine dependence; J18.9 Pneumonia, unspecified organism; Z79.4 Long term (current) use of insulin
CPT/HCPCS: 36416; 71045; 71275; 80053; 82962; 83880; 84484; 85025; 93005; 94640; 96365; 96367; 99284; J0696; J2930; J3475; J7030; Q9967

== ENCOUNTER 2023-04-22 12:53 | Emergency (ER) | payer MEDICARE, MEDICAID, SELFPAY ==
[2023-04-22 12:59] VITALS: BP 155/84; PULSE 93; RESP 16; TEMP 36.9; O2SAT 98; BMI 46.6
[2023-04-22 13:22] VITALS: O2SAT 94
--- NOTE | 2023-04-22 13:26 | W.ED.COVID ---
HPI - COVID General: Chief Complaint: COVID symptoms Stated Complaint: Covid, fever, headache Time Seen by Provider: 04/22/23 13:25 History of Present Illness: 47-year-old female comes in today for complaints of persistent cough with fever for the last 2 weeks. 1 week ago patient did test positive for COVID-19. Patient has a chronic history of rheumatoid arthritis, lupus, sarcoidosis, fibromyalgia, diabetes mellitus, and asthma. Patient reports that her family has seemed to have improved from the illness but she continues to have malingering symptoms. Patient appears nontoxic. Patient appears in no pain. COVID 19 common symptoms: positive fever(s), headache(s) and nasal congestion; negative dyspnea, nausea, vomiting or diarrhea COVID 19 other sytmptoms: negative chest pain COVID Results: SARS-CoV-2 Antigen (Rapid) Negative (Negative) 10/26/20 23:21 SARS-CoV-2 RNA (RT-PCR) Not detected (NOT DETECTED) 10/26/20 12:45 Review of Systems Const: Reports: fever(s) ENMT: Reports: nasal congestion and sinus pain Card: Denies: chest pain Resp: Denies: dyspnea GI: Denies: nausea, vomiting, diarrhea or constipation : Denies: difficulty voiding Musc: Denies: neck pain or back pain Skin/Breast: Denies: rash Neuro: Reports: headache(s) PFS ED PFSH: Medical History Asthma Asthma exacerbation Dyslipidemia HOCM (hypertrophic obstructive cardiomyopathy) HTN (hypertension) Immunocompromised Lupus (systemic lupus erythematosus) Sarcoidosis Type 2 diabetes mellitus Family History Denies family history of Diabetes CAD (coronary artery disease) Chronic kidney disease (CKD) Cancer Social History Smoking and tobacco/nicotine status: former use of tobacco/nicotine Alcohol intake: never Substance/Drug Use: never Lives independently: No Household members: family Housing: House Physical Exam Const: COMMON NORMALS: alert HENMT: COMMON NORMALS: normocephalic HEAD & SCALP: normocephalic NOSE: Abnormal mucous membranes and turbinates present erythematous MOUTH: Normal oral and palatal mucosa present THROAT: posterior oropharynx abnormal erythema Neck/C-Spine: COMMON NORMALS: full ROM and no meningeal signs Resp: COMMON NORMALS: normal respiratory effort and clear to auscultation bilaterally AUSCULTATION: clear to auscultation bilaterally Cardio: COMMON NORMALS: regular rate and regular rhythm RATE: regular rate RHYTHM: regular rhythm GI: COMMON NORMALS: non-tender Back/Pelvis: COMMON NORMALS: thoracic and lumbar spine normal to inspection Extremity: COMMON NORMALS: no pedal edema Neuro: SENSORIUM/ORIENTATION: Yes alert MENINGEAL SIGNS: Yes no meningeal signs Skin: COMMON NORMALS: turgor normal GENERAL SKIN EXAM: turgor normal Course Vital Signs: Vital signs: Vital Signs Temperature 98.4 F 04/22/23 12:59 Pulse Rate 93 04/22/23 12:59 Respiratory Rate 16 04/22/23 12:59 Blood Pressure 155/84 04/22/23 12:59 Pulse Oximetry 94 04/22/23 13:22 Oxygen Delivery Me thod Room Air 04/22/23 13:22 [facility] - COVID Medical Decision Making Patient came in today for persistent symptoms secondary to COVID-19 infection. Patient appears nontoxic. Patient appears in no pain. On exam lungs are clear to auscultation. Patient has some postnasal drip with pharyngeal erythema. Patient has sinus pressure and pain on palpation. Vital signs are normal except for some mild elevation in blood pressure. Differential diagnosis includes but not limited to rhinosinusitis, post viral syndrome, pneumonia. Laboratory values were unremarkable except for some mild anemia with a hemoglobin of 10.9. Chest x-ray showed no pneumonia. Reviewed exam with patient with recommendations for treatment for a rhinosinusitis. Patient reported understanding of care plan and need for follow-up or return to the ER. Lab Data 04/22/23 13:43 04/22/23 13:43 Laboratory Results WBC 8.71 10^3/uL (3.29-11.43) 04/22/23 13:43 RBC 3.63 10^6/uL (3.85-5.65) L 04/22/23 13:43 Hgb 10.90 g/dL (11.27-16.99) L 04/22/23 13:43 Hct 32.9 % (36-47) L 04/22/23 13:43 MCV 90.6 fl (85-98) 04/22/23 13:43 MCH 30.0 pg (27-33) 04/22/23 13:43 MCHC 33.1 g/dL (30-55) 04/22/23 13:43 RDW 14.6 % (12.1-15.1) 04/22/23 13:43 Plt Count 387 10^3/cmm (157-399) 04/22/23 13:43 MPV 9.0 fL (7.4-10.4) 04/22/23 13:43 Neut % (Auto) 60.5 % 04/22/23 13:43 Lymph % (Auto) 28.7 % 04/22/23 13:43 [place] % (Auto) 6.5 % 04/22/23 13:43 Eos % (Auto) 2.9 % 04/22/23 13:43 Baso % (Auto) 0.5 % 04/22/23 13:43 Neut # (Auto) 5.27 10^3/uL (1.8-7.7) 04/22/23 13:43 Lymph # (Auto) 2.5 10^3/uL (0.8-4.8) 04/22/23 13:43 [place] # (Auto) 0.6 10^3/uL (0.2-0.9) 04/22/23 13:43 Eos # (Auto) 0.3 10^3/uL (0.0-0.8) 04/22/23 13:43 Baso # (Auto) 0.0 10^3/uL (0.0-0.1) 04/22/23 13:43 Nucleated RBC % (auto) 0 % 04/22/23 13:43 Nucleated RBCs # 0.0 /100WBC 04/22/23 13:43 Sodium 134 mmol/L (136-145) L 04/22/23 13:43 Potassium 4.1 mmol/L (3.5-5.1) 04/22/23 13:43 Chloride 99 mmol/L (98-107) 04/22/23 13:43 Carbon Dioxide 24 mmol/L (22-29) 04/22/23 13:43 Anion Gap 15.1 (5-19) 04/22/23 13:43 BUN 12 mg/dL (6-20) 04/22/23 13:43 Creatinine 0.6 mg/dL (0.5-0.9) 04/22/23 13:43 GFR Calculation 107.6 mL/min (90-130) 04/22/23 13:43 Glucose 292 mg/dL (65-115) H 04/22/23 13:43 Calculated Osmolality 289 mOsm/kg (285-295) 04/22/23 13:43 Calcium 9.2 mg/dL (8.5-10.5) 04/22/23 13:43 Total Bilirubin 0.3 mg/dL (0.15-1.2) 04/22/23 13:43 AST 17 U/L (0-32) 04/22/23 13:43 ALT 32 U/L (0-33) 04/22/23 13:43 Alkaline Phosphatase 78 U/L (35-105) 04/22/23 13:43 Total Protein 7.3 g/dL (6.6-8.7) 04/22/23 13:43 Albumin 4.0 g/dL (3.5-5.2) 04/22/23 13:43 Globulin 3.3 g/dL (1.3-4.6) 04/22/23 13:43 SARS-CoV-2 Antigen (Rapid) Negative (Negative) 10/26/20 23:21 SARS-CoV-2 RNA (RT-PCR) Not detected (NOT DETECTED) 10/26/20 12:45 All radiology interpretation(s) finalized by discharge Discharge Plan Discharge Patient Disposition: Home Clinical Impression: Acute bacterial rhinosinusitis Condition: Stable Prescriptions: New cefdinir 300 mg capsule 300 mg PO BID 10 Days Qty: 20 0RF No Action ipratropium bromide 0.02 % solution 2.5 ml inhalation Q6H PRN (Reason: Shortness Of Breath) multivitamin [Multiple Vitamins] Tablet 1 tab PO DAILY potassium chloride 10 mEq Tablet Extended Release 10 meq PO DAILY azathioprine 50 mg Tablet See Rx Instructions .ROUTE .COMPLEX Rx Instructions: 100 mg po q am and 150MG po q pm omeprazole 40 mg Capsule,Delayed Release(Dr/Ec) 40 mg PO DAILY tramadol 50 mg Tablet 50 mg PO Q4H PRN (Reason: Pain) lisinopril 30 mg Tablet 30 mg PO DAILY hydrochlorothiazide 25 mg Tablet 25 mg PO DAILY mupirocin 2 % Ointment 1 applic TOPICAL PRN furosemide [Lasix] 20 mg Tablet 20 mg PO DAILY PRN (Reason: Edema) epinephrine 0.3 mg/0.3 mL auto-injector See Rx Instructions .ROUTE .COMPLEX Rx Instructions: use 1 pen as directed prn insulin aspart U-100 [Novolog FlexPen U-100 Insulin] 100 unit/mL (3 mL) Insulin Pen See Rx Instructions .ROUTE .COMPLEX Rx Instructions: sliding scale subcutaneously as directed Lantus Solostar U-100 Insulin 100 unit/mL (3 mL) Insulin Pen 50 unit SUBCUT DAILY calcium carbonate-vitamin D3 [Calcium 600 with Vitamin D3] 600 mg(1,500mg) -500 unit Capsule 1 cap PO DAILY Humira(CF) Pen 40 mg/0.4 mL Pen Injector Kit 40 mg SUBCUT Q7D Rx Instructions: ON THURSDAY tizanidine 4 mg Tablet 4 mg PO TID PRN (Reason: Muscle Pain) gabapentin 300 mg Capsule 300 mg PO TID albuterol sulfate 90 mcg/actuation Hfa Aerosol Inhaler 2 puff INHALATION 6XD PRN (Reason: Shortness Of Breath) fluticasone propionate 50 mcg/actuation [place],Suspension 1 spray INTRANASAL BID PRN (Reason: Nasal Congestion) duloxetine 60 mg capsule,delayed release(DR/EC) 60 mg PO BID montelukast 10 mg tablet 10 mg PO DAILY magnesium 200 mg Tablet 200 mg PO DAILY rosuvastatin 5 mg tablet 5 mg PO DAILY Ventolin HFA 90 mcg/actuation HFA aerosol inhaler 2 inh inhalation Q6H PRN (Reason: shortness of breath or wheezing) Qty: 6.7 0RF Discharge Orders: Discharge ED (Routine); Ordered 04/22/23 Ordered By: Vinh Gonzales Referrals: Katy Holm FNP [Primary Care Provider] - Discharge Diet: Usual diet Discharge Activity: Increase activity as tolerated Patient Instructions: Rhinosinusitis (ED) Activity Restrictions/Additional Instructions: Drink plenty of water and fluids. Use [id number] cough and cold medicines as needed for symptoms. Use acetaminophen and ibuprofen for pain. Follow-up with primary care for further instructions. Return to ED for new concerns. Coding Level of Care Code ED Measurement Analyst for Lou Ley
--- NOTE | 2023-04-22 13:32 | XR_ITS ---
WS: [id number] Exam: XR chest 1V portable [id number] Date/Time of Exam: 04/22/2023 1:34 PM Reason For Exam: fever, cough Comparison 08/29/2021. Findings: The lungs are clear and fully expanded. Costophrenic angles are sharp. No infiltrates. Bronchovascula r relief appears normal. Cardiac silhouette is unremarkable. Bony elements are intact. IMPRESSION: Unremarkable chest radiograph.
[2023-04-22 13:55] LABS: Basophils % 0.5 %; Eosinophils # 0.3 10^3/uL (0.0-0.8); Eosinophils % 2.9 %; Hematocrit 32.9 % (36-47); Lymphocytes # 2.5 10^3/uL (0.8-4.8); Lymphocytes % 28.7 %; Mean Corpuscular HGB Conc 33.1 g/dL (30-55); Mean Corpuscular Volume 90.6 fl (85-98); Monocytes # 0.6 10^3/uL (0.2-0.9); Monocytes % 6.5 %; Neutrophils # 5.27 10^3/uL (1.8-7.7); Neutrophils % 60.5 %; Nucleated Red Blood Cells % 0 %; Platelet Count 387 10^3/cmm (157-399); Red Blood Count 3.63 10^6/uL (3.85-5.65); Red Cell Distribution Width 14.6 % (12.1-15.1); White Blood Count 8.71 10^3/uL (3.29-11.43)
[2023-04-22 14:16] LABS: Alanine Aminotransferase 32 U/L (0-33); Alkaline Phosphatase 78 U/L (35-105); Anion Gap 15.1 (5-19); Aspartate Amino Transferase 17 U/L (0-32); Blood Urea Nitrogen 12 mg/dL (6-20); Calcium 9.2 mg/dL (8.5-10.5); Carbon Dioxide 24 mmol/L (22-29); Chloride 99 mmol/L (98-107); Globulin 3.3 g/dL (1.3-4.6); Glomerular Filtration Rate 107.6 mL/min (90-130); Glucose 292 mg/dL (65-115); Osmolality Calculated 289 mOsm/kg (285-295); Potassium 4.1 mmol/L (3.5-5.1); Sodium 134 mmol/L (136-145); Total Bilirubin 0.3 mg/dL (0.15-1.2); Total Protein 7.3 g/dL (6.6-8.7)
[2023-04-22] MEDS: cefTRIAXone 1,000 MG in water for injection-sterile 2.1 ML 2.1 MG IM (15:00)
== END 2023-04-22 15:13 | disposition home or self-care (01) ==
PROVIDERS: Emergency Provider Nurse Practitioner Family; PCP Nurse Practitioner Family
DX: J01.90 Acute sinusitis, unspecified (principal); B96.89 Other specified bacterial agents as the cause of diseases classified elsewhere; Z79.4 Long term (current) use of insulin; E78.5 Hyperlipidemia, unspecified; I11.9 Hypertensive heart disease without heart failure; I43 Cardiomyopathy in diseases classified elsewhere; M32.9 Systemic lupus erythematosus, unspecified; E11.9 Type 2 diabetes mellitus without complications; Z87.891 Personal history of nicotine dependence
CPT/HCPCS: 36415; 71045; 80053; 85025; 96372; 99284; J0696

== ENCOUNTER 2024-06-21 10:59 | Observation (INO) | payer MEDICARE, MEDICAID, SELFPAY ==
[2024-06-21] VITALS (11 sets, daily range): BP systolic 144–170; BP diastolic 85–105; PULSE 60–74; RESP 14–20; TEMP 36.9; O2SAT 94–100; BMI 42.0
--- NOTE | 2024-06-21 11:00 | XRR_ITS ---
PROCEDURE INFORMATION: Exam: XR Chest Exam date and time: 06/21/2024 11:10 AM Age: 48 years old Clinical indication: Pain; Shortness of breath; Angina pectoris; Additional info: Cp TECHNIQUE: Imaging protocol: Radiologic exam of the chest. Views: 1 view. COMPARISON: CT angio chest PE protcl [id number] 08/29/2021 2:49 PM FINDINGS: Lungs: Suboptimal pulmonary expansion with associated accentuation of bronchovascular markings. No acute pulmonary pathology given technique. Pleural spaces: No pleural effusion. Heart/Mediastinum: Cardiomediastinal contours accentuated by low lung volumes and AP technique. Bones/joints: No significant pathology. XR/XR chest 1V portable [id number] IMPRESSION: No acute pathology given technique.
--- NOTE | 2024-06-21 11:06 | ECG_ITS ---
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 Measurements Intervals [place] Rate: 67 P: 41 ME: 188 QRS: 34 QRSD: 89 T: 191 QT: 406 QTc: 429 Interpretive Statements SINUS RHYTHM POSSIBLE LEFT ATRIAL ENLARGEMENT [-0.1mV P-WAVE IN V1/V2] ST DEVIATION AND MARKED T-WAVE ABNORMALITY, CONSIDER LATERAL ISCHEMIA [-0.5+ mV T-WAVE IN I/aVL/V5/V6] ST DEVIATION AND MODERATE T-WAVE ABNORMALITY, CONSIDER INFERIOR ISCHEMIA [-0.1+ mV T-WAVE IN II/aVF] Compared to ECG 08/29/2021 11:24:49 T-wave abnormality now present. Possible ischemia now present Sinus tachycardia no longer present . Left ventricular hypertrophy no longer present ST (T wave) deviation no longer present Electronically Signed On 06-22-2024 17:52:33 DENTAL SERVICE CHIEF by Gigi Macdonald M.D. [email or web address] [email or web address]
--- NOTE | 2024-06-21 11:18 | ECG_ITS ---
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 Measurements Intervals [place] Rate: 68 P: 42 OR: 179 QRS: 44 QRSD: 89 T: 204 QT: 383 QTc: 408 Interpretive Statements SINUS RHYTHM POSSIBLE LEFT ATRIAL ENLARGEMENT [-0.1mV P-WAVE IN V1/V2] ST DEVIATION AND MODERATE T-WAVE ABNORMALITY, CONSIDER LATERAL ISCHEMIA [-0.1+ mV T-WAVE IN I/aVL/V5/V6] ST DEVIATION AND MODERATE T-WAVE ABNORMALITY, CONSIDER INFERIOR ISCHEMIA [-0.1+ mV T-WAVE IN II/aVF] Compared to ECG 06/21/2024 11:06:30 No significant changes Electronically Signed On 06-22-2024 17:52:45 CUSTOMER SALES ADVISOR by Gigi Macdonald M.D. [id number]
--- NOTE | 2024-06-21 11:37 | W.ED.CHESTPA ---
HPI - Chest Pain General: Chief Complaint: Chest Pain Stated Complaint: chest pain/SOB Time Seen by Provider: 06/21/24 11:12 Source: patient Mode of arrival: ambulatory Limitations: no limitations History of Present Illness: 48-year-old female states the last few days she has had some shortness of breath cough states this morning started having chest pains. States been having sharp pains in the center of her chest started this morning at 6 AM pains been intermittent in nature. She states she has no history of heart disease but has a strong family history. Denies any pain currently the pain at its worst been a 7 out of 10 denies any worse improved factors Associated symptoms: Reports dyspnea; Deny abdominal pain, fever(s), nausea or vomiting Related Data Home Medications ?Medication ?Instructions ?Recorded ?Confirmed adalimumab 40 mg/0.4 mL 40 mg SUBCUT Q7D 06/08/19 08/29/21 subcutaneous pen kit (Humira(CF) Pen) azathioprine 50 mg tablet See Rx Instructions .Route .COMPLEX 06/08/19 08/29/21 calcium 600 mg (as 1 cap PO DAILY 06/08/19 08/29/21 carbonate)-vitamin D3 12.5 mcg (500 unit) capsule (Calcium with Vit D3) epinephrine 0.3 mg/0.3 mL See Rx Instructions .Route .COMPLEX 06/08/19 08/29/21 injection, auto-injector furosemide 20 mg tablet (Lasix) 20 mg PO DAILY PRN Edema 06/08/19 08/29/21 hydrochlorothiazide 25 mg tablet 25 mg PO DAILY 06/08/19 08/29/21 insulin aspart U-100 100 unit/mL See Rx Instructions .Route .COMPLEX 06/08/19 08/29/21 (3 mL) subcutaneous pen (Novolog FlexPen U-100 Insulin aspart) insulin glargine 100 unit/mL (3 50 unit SUBCUT DAILY 06/08/19 08/29/21 mL) subcutaneous pen (Lantus Solostar U-100 Insulin) lisinopril 30 mg tablet 30 mg PO DAILY 06/08/19 08/29/21 multivitamin (Multiple Vitamins 1 tab PO DAILY 06/08/19 08/29/21 tablet) mupirocin 2 % topical ointment 1 applic topical PRN 06/08/19 08/29/21 omeprazole 40 mg capsule,delayed 40 mg PO DAILY 06/08/19 08/29/21 release potassium chloride 10 mEq 10 meq PO DAILY 06/08/19 08/29/21 tablet,extended release tramadol 50 mg tablet 50 mg PO Q4H PRN Pain 06/08/19 08/29/21 albuterol sulfate 90 mcg/actuation 2 puff inhalation 6XD PRN 10/26/20 08/29/21 aerosol inhaler Shortness Of Breath fluticasone propionate 50 1 spray intranasal BID PRN Nasal 10/26/20 08/29/21 mcg/actuation nasal Congestion spray,suspension gabapentin 300 mg capsule 300 mg PO TID 10/26/20 08/29/21 tizanidine 4 mg tablet 4 mg PO TID PRN Muscle Pain 10/26/20 08/29/21 ipratropium bromide 0.02 % 2.5 ml inhalation Q6H PRN 12/10/20 08/29/21 solution for inhalation Shortness Of Breath duloxetine 60 mg capsule,delayed 60 mg PO BID 08/29/21 08/29/21 release magnesium 200 mg tablet 200 mg PO DAILY 08/29/21 08/29/21 montelukast 10 mg tablet 10 mg PO DAILY 08/29/21 08/29/21 rosuvastatin 5 mg tablet 5 mg PO DAILY 08/29/21 08/29/21 Previous Rx's ?Medication ?Instructions ?Recorded albuterol sulfate 90 mcg/actuation 2 inh inhalation Q6H PRN shortness 08/29/21 aerosol inhaler (Ventolin HFA) of breath or wheezing #6.7 grams Allergies Allergy/AdvReac Type Severity Reaction Status Date / Time coconut Allergy ALGY-Bliste Verified 06/21/24 11:10 r doxycycline Allergy ALGY-Rash Verified 06/21/24 11:10 oxycodone (From Percocet) Allergy ALGY-Rash Verified 06/21/24 11:10 propoxyphene (From Allergy ALGY-Rash Verified 06/21/24 11:10 Darvocet-N) sulfamethoxazole (From Allergy ADR-Nausea Verified 06/21/24 11:10 Bactrim) trimethoprim (From Bactrim) Allergy ADR-Nausea Verified 06/21/24 11:10 Review of Systems Const: Denies: fever(s), chills, body aches or change in appetite ENMT: Denies: throat pain or dental pain Card: Reports: chest pain Resp: Reports: dyspnea GI: Denies: abdominal pain, nausea, vomiting or diarrhea : Denies: dysuria Musc: Denies: neck pain or back pain Skin/Breast: Denies: rash Neuro: Denies: headache(s) PFSH ED PFSH: Medical History Asthma Asthma exacerbation Dyslipidemia HOCM (hypertrophic obstructive cardiomyopathy) HTN (hypertension) Immunocompromised Lupus (systemic lupus erythematosus) Sarcoidosis Type 2 diabetes mellitus Family History Denies family history of Diabetes CAD (coronary artery disease) Chronic kidney disease (CKD) Cancer Social History Smoking and tobacco/nicotine status: former use of tobacco/nicotine Alcohol intake: never Substance/Drug Use: never Lives independently: No Household members: family Housing: House Physical Exam Const: COMMON NORMALS: patient oriented x3 HENMT: COMMON NORMALS: normocephalic and atraumatic HEAD & SCALP: normocephalic and atraumatic Eye: COMMON NORMALS: Equal, round and reactive pupils present and conjunctivae normal CONJUNCTIVA: Yes conjunctivae normal PUPIL: Yes Equal, round and reactive pupils present Neck/C-Spine: COMMON NORMALS: full ROM and supple Chest: COMMONS NORMALS: normal inspection of the chest and normal palpation of entire chest wall Resp: COMMON NORMALS: normal respiratory effort, No retractions, No use of accessory muscles and clear to auscultation bilaterally AUSCULTATION: clear to auscultation bilaterally Cardio: COMMON NORMALS: regular rate, regular rhythm and No murmurs present (Cardio) RATE: regular rate RHYTHM: regular rhythm GI: COMMON NORMALS: Normal to inspection, nondistended, normoactive bowel sounds present, Soft to palpation, non-tender and no masses PALPATION: Yes Soft to palpation Extremity: COMMON NORMALS: normal to inspection and full ROM Neuro: COMMON NORMALS: patient oriented x3, moves all extremities and no focal motor deficits Psych: COMMON NORMALS: mental status grossly normal, Normal thought process present and cooperative THOUGHT PROCESS: Normal thought process present Skin: COMMON NORMALS: no rashes or lesions noted and no wounds GENERAL SKIN EXAM: no rashes or lesions noted Course Vital Signs: Vital signs: Vital Signs Temperature 98.4 F 06/21/24 11:02 Pulse Rate 74 06/21/24 12:03 Respiratory Rate 18 06/21/24 12:03 Blood Pressure 144/85 06/21/24 12:03 Pulse Oximetry 99 06/21/24 12:03 Oxygen Delivery Me thod Room Air 06/21/24 12:03 MDM - Chest Pain Medical Decision Making Patient presents here chest pain initial troponin here is negative she does have ST depression T wave inversions on her EKG will admit for ACS rule out. Medical Records I reviewed the patient's medical records. Lab Data I reviewed the patient's lab results. 06/21/24 11:30 06/21/24 11:30 Radiology Impressions Chest X-Ray 06/21/24 11:00 IMPRESSION: No acute pathology given technique. Laboratory Results WBC 8.45 10^3/uL (3.29-11.43) 06/21/24 11:30 RBC 3.97 10^6/uL (3.85-5.65) 06/21/24 11:30 Hgb 11.80 g/dL (11.27-16.99) 06/21/24 11:30 Hct 38.0 % (36-47) 06/21/24 11:30 MCV 95.7 fl (85-98) 06/21/24 11:30 MCH 29.7 pg (27-33) 06/21/24 11:30 MCHC 31.1 g/dL (30-55) 06/21/24 11:30 RDW 13.6 % (12.1-15.1) 06/21/24 11:30 Plt Count 491 10^3/cmm (157-399) H 06/21/24 11:30 MPV 8.9 fL (7.4-10.4) 06/21/24 11:30 Neut % (Auto) 54.4 % 06/21/24 11:30 Lymph % (Auto) 29.6 % 06/21/24 11:30 [place] % (Auto) 6.6 % 06/21/24 11:30 Eos % (Auto) 5.4 % 06/21/24 11:30 Baso % (Auto) 0.9 % 06/21/24 11:30 Neut # (Auto) 4.59 10^3/uL (1.8-7.7) 06/21/24 11:30 Lymph # (Auto) 2.5 10^3/uL (0.8-4.8) 06/21/24 11:30 [place] # (Auto) 0.6 10^3/uL (0.2-0.9) 06/21/24 11:30 Eos # (Auto) 0.5 10^3/uL (0.0-0.8) 06/21/24 11:30 Baso # (Auto) 0.1 10^3/uL (0.0-0.1) 06/21/24 11:30 Nucleated RBC % (auto) 0 % 06/21/24 11: Nucleated RBCs # 0.0 /100WBC 06/21/24 11:30 PT 12.20 SECONDS (12.1-14.9) 06/21/24 11:30 INR 0.85 (0.8-1.2) 06/21/24 11:30 Sodium 140 mmol/L (136-145) 06/21/24 11:30 Potassium 4.2 mmol/L (3.5-5.1) 06/21/24 11:30 Chloride 103 mmol/L (98-107) 06/21/24 11:30 Carbon Dioxide 25 mmol/L (22-29) 06/21/24 11:30 Anion Gap 16.2 (5-19) 06/21/24 11:30 BUN 17 mg/dL (6-20) 06/21/24 11:30 Creatinine 0.8 mg/dL (0.5-0.9) 06/21/24 11:30 GFR Calculation 76.9 mL/min (90-130) L 06/21/24 11:30 Glucose 130 mg/dL (65-115) H 06/21/24 11:30 Calculated Osmolality 293 mOsm/kg (285-295) 06/21/24 11:30 Calcium 9.2 mg/dL (8.5-10.5) 06/21/24 11:30 Total Bilirubin 0.2 mg/dL (0.15-1.2) 06/21/24 11:30 AST 18 U/L (0-32) 06/21/24 11:30 ALT 15 U/L (0-33) 06/21/24 11:30 Alkaline Phosphatase 59 U/L (35-105) 06/21/24 11:30 Troponin T Baseline 11 ng/L (0-10) H 06/21/24 11:30 NT-Pro-B Natriuret Pep 867 pg/mL (0-125) H 06/21/24 11:30 Total Protein 6.8 g/dL (6.6-8.7) 06/21/24 11:30 Albumin 4.0 g/dL (3.5-5.2) 06/21/24 11:30 Globulin 2.8 g/dL (1.3-4.6) 06/21/24 11:30 Lipase 31 U/L (13-60) 06/21/24 11:30 All radiology interpretation(s) finalized by discharge EKG Data EKG 1: I personally reviewed and interpreted this EKG as follows: EKG interpretation date: 06/21/24 EKG interpretation time: 11:06 Interpretation: nsr hr [address] st and t wave abnormalities qrs 89 [id number] Discharge Plan Discharge Patient Disposition: Admitted As Inpatient Clinical Impression: Chest pain Condition: Stable Prescriptions: No Action ipratropium bromide 0.02 % solution 2.5 ml inhalation Q6H PRN (Reason: Shortness Of Breath) multivitamin [Multiple Vitamins] Tablet 1 tab PO DAILY potassium chloride 10 mEq Tablet Extended Release 10 meq PO DAILY azathioprine 50 mg Tablet See Rx Instructions .ROUTE .COMPLEX Rx Instructions: 100 mg po q am and 150MG po q pm omeprazole 40 mg Capsule,Delayed Release(Dr/Ec) 40 mg PO DAILY tramadol 50 mg Tablet 50 mg PO Q4H PRN (Reason: Pain) lisinopril 30 mg Tablet 30 mg PO DAILY hydrochlorothiazide 25 mg Tablet 25 mg PO DAILY mupirocin 2 % Ointment 1 applic TOPICAL PRN furosemide [Lasix] 20 mg Tablet 20 mg PO DAILY PRN (Reason: Edema) epinephrine 0.3 mg/0.3 mL auto-injector See Rx Instructions .ROUTE .COMPLEX Rx Instructions: use 1 pen as directed prn insulin aspart U-100 [Novolog FlexPen U-100 Insulin] 100 unit/mL (3 mL) Insulin Pen See Rx Instructions .ROUTE .COMPLEX Rx Instructions: sliding scale subcutaneously as directed Lantus Solostar U-100 Insulin 100 unit/mL (3 mL) Insulin Pen 50 unit SUBCUT DAILY calcium carbonate-vitamin D3 [Calcium 600 with Vitamin D3] 600 mg(1,500mg) -500 unit Capsule 1 cap PO DAILY Humira(CF) Pen 40 mg/0.4 mL Pen Injector Kit 40 mg SUBCUT Q7D Rx Instructions: ON THURSDAY tizanidine 4 mg Tablet 4 mg PO TID PRN (Reason: Muscle Pain) gabapentin 300 mg Capsule 300 mg PO TID albuterol sulfate 90 mcg/actuation Hfa Aerosol Inhaler 2 puff INHALATION 6XD PRN (Reason: Shortness Of Breath) fluticasone propionate 50 mcg/actuation [place],Suspension 1 spray INTRANASAL BID PRN (Reason: Nasal Congestion) duloxetine 60 mg capsule,delayed release(DR/EC) 60 mg PO BID montelukast 10 mg tablet 10 mg PO DAILY magnesium 200 mg Tablet 200 mg PO DAILY rosuvastatin 5 mg tablet 5 mg PO DAILY Ventolin HFA 90 mcg/actuation HFA aerosol inhaler 2 inh inhalation Q6H PRN (Reason: shortness of breath or wheezing) Qty: 6.7 0RF Referrals: Katy Holm FNP [Primary Care Provider] - Print Language: Martiniquais Coding Level of Care Code ED Side Door Worker for Lou Ley
[2024-06-21 11:45] LABS: Basophils # 0.1 10^3/uL (0.0-0.1); Basophils % 0.9 %; Eosinophils # 0.5 10^3/uL (0.0-0.8); Eosinophils % 5.4 %; Lymphocytes # 2.5 10^3/uL (0.8-4.8); Lymphocytes % 29.6 %; Mean Corpuscular HGB Conc 31.1 g/dL (30-55); Mean Corpuscular Hemoglobin 29.7 pg (27-33); Mean Corpuscular Volume 95.7 fl (85-98); Mean Platelet Volume 8.9 fL (7.4-10.4); Monocytes # 0.6 10^3/uL (0.2-0.9); Monocytes % 6.6 %; Neutrophils # 4.59 10^3/uL (1.8-7.7); Neutrophils % 54.4 %; Nucleated Red Blood Cells % 0 %; Platelet Count 491 10^3/cmm (157-399); Red Blood Count 3.97 10^6/uL (3.85-5.65); Red Cell Distribution Width 13.6 % (12.1-15.1); White Blood Count 8.45 10^3/uL (3.29-11.43)
[2024-06-21 11:58] LABS: INR 0.85 (0.8-1.2)
[2024-06-21] MEDS: aspirin 81 mg Chew Tablet 324 MG PO (12:01)
[2024-06-21 12:03] LABS: Troponin(5th) Baseline 11 ng/L (0-10)
[2024-06-21 12:22] LABS: Alanine Aminotransferase 15 U/L (0-33); Alkaline Phosphatase 59 U/L (35-105); Aspartate Amino Transferase 18 U/L (0-32); Blood Urea Nitrogen 17 mg/dL (6-20); Calcium 9.2 mg/dL (8.5-10.5); Carbon Dioxide 25 mmol/L (22-29); Chloride 103 mmol/L (98-107); Creatinine Clr Calc Pharmacy 98.5248; Globulin 2.8 g/dL (1.3-4.6); Glomerular Filtration Rate 76.9 mL/min (90-130); Glucose 130 mg/dL (65-115); Lipase 31 U/L (13-60); NT Pro B Type Natriuretic Pept 867 pg/mL (0-125); Osmolality Calculated 293 mOsm/kg (285-295); Sodium 140 mmol/L (136-145); Total Bilirubin 0.2 mg/dL (0.15-1.2); Total Protein 6.8 g/dL (6.6-8.7)
[2024-06-21 12:25] LABS: Anion Gap 16.2 (5-19); Potassium 4.2 mmol/L (3.5-5.1)
--- NOTE | 2024-06-21 12:35 | PM.HP ---
Providers/Chief Complaint Primary Care Provider: ROSALEE Loya Chief Complaint: chest pain/SOB History of Present Illness Fariha Beard is a 48 year old female presented to the hospital with chief complaint of worsening of shortness of orthopnea and PND, recently has finished couple courses of antibiotics for sinusitis, with shortness of breath she started getting midepigastric pain radiating towards her neck, mostly gets worse on taking deep breaths and exertion. 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 [place] EKG has T wave inversion diffuse in nature patient has pleuritic pain, I have requested stress test for tomorrow patient is agreeable to stay and get the stress test Review of Systems Const: Reports: chills; Denies: fever(s) Eyes: Denies: change in vision ENMT: Denies: throat pain Card: Reports: chest pain and swelling of feet/ankles Resp: Reports: dyspnea GI: Denies: abdominal pain Medications/Allergies Home Medications ?Medication ?Instructions ?Recorded ?Confirmed ?Last Taken ?Type adalimumab 40 mg/0.4 mL 40 mg SUBCUT Q7D 06/08/19 06/21/24 06/21/24 History subcutaneous pen kit (Humira(CF) Pen) azathioprine 50 mg tablet See Rx Instructions .Route .COMPLEX 06/08/19 06/21/24 06/21/24 History calcium 600 mg (as 1 cap PO DAILY 06/08/19 06/21/24 06/21/24 History carbonate)-vitamin D3 12.5 mcg (500 unit) capsule (Calcium with Vit D3) epinephrine 0.3 mg/0.3 mL See Rx Instructions .Route .COMPLEX 06/08/19 06/21/24 Unknown History injection, auto-injector furosemide 20 mg tablet (Lasix) 20 mg PO DAILY PRN Edema 06/08/19 06/21/24 08/29/21 History hydrochlorothiazide 25 mg tablet 25 mg PO DAILY 06/08/19 06/21/24 06/21/24 History insulin aspart U-100 100 unit/mL See Rx Instructions .Route .COMPLEX 06/08/19 06/21/24 06/21/24 History (3 mL) subcutaneous pen (Novolog FlexPen U-100 Insulin aspart) insulin glargine 100 unit/mL (3 50 unit SUBCUT BEDTIME 06/08/19 06/21/24 06/20/24 History mL) subcutaneous pen (Lantus Solostar U-100 Insulin) lisinopril 30 mg tablet 30 mg PO DAILY 06/08/19 06/21/24 06/21/24 History multivitamin (Multiple Vitamins 1 tab PO DAILY 06/08/19 06/21/24 06/21/24 History tablet) mupirocin 2 % topical ointment 1 applic topical PRN PRN skin 06/08/19 06/21/24 Unknown History irritaion omeprazole 40 mg capsule,delayed 40 mg PO DAILY 06/08/19 06/21/24 06/21/24 History release potassium chloride 10 mEq 10 meq PO DAILY PRN while taking 06/08/19 06/21/24 08/29/21 History tablet,extended release lasix tramadol 50 mg tablet 50 mg PO Q4H PRN Pain 06/08/19 06/21/24 10/26/20 History fluticasone propionate 50 1 spray intranasal BID PRN Nasal 10/26/20 06/21/24 06/21/24 History mcg/actuation nasal Congestion spray,suspension gabapentin 300 mg capsule 300 mg PO TID 10/26/20 06/21/24 06/21/24 History tizanidine 4 mg tablet 8 mg PO QPM PRN Muscle Pain 10/26/20 06/21/24 Unknown History ipratropium bromide 0.02 % 2.5 ml inhalation Q6H PRN 12/10/20 06/21/24 Unknown History solution for inhalation Shortness Of Breath albuterol sulfate 90 mcg/actuation 2 inh inhalation Q6H PRN shortness 08/29/21 06/21/24 Unknown Rx aerosol inhaler (Ventolin HFA) of breath or wheezing #6.7 grams duloxetine 60 mg capsule,delayed 60 mg PO BID 08/29/21 06/21/24 06/21/24 History release magnesium 200 mg tablet 200 mg PO DAILY 08/29/21 06/21/24 06/21/24 History montelukast 10 mg tablet 10 mg PO DAILY 08/29/21 06/21/24 06/21/24 History atorvastatin 20 mg tablet 20 mg PO QPM 0206/21/24 06/20/24 History doxycycline hyclate 100 mg tablet 100 mg PO BID 06/21/24 06/21/24 06/21/24 History duloxetine 20 mg capsule,delayed See Rx Instructions .Route .COMPLEX 06/21/24 06/21/24 06/21/24 History release meloxicam 15 mg tablet 15 mg PO DAILY 06/21/24 06/21/24 06/21/24 History semaglutide 1 mg/dose (4 mg/3 mL) 1 mg SUBCUT Q7D 06/21/24 06/21/24 06/20/24 History subcutaneous pen injector (Ozempic) Allergies Allergy/AdvReac Type Severity Reaction Status Date / Time coconut Allergy ALGY-Bliste Verified 06/21/24 11:10 r doxycycline Allergy ALGY-Rash Verified 06/21/24 11:10 oxycodone (From Percocet) Allergy ALGY-Rash Verified 06/21/24 11:10 propoxyphene (From Allergy ALGY-Rash Verified 06/21/24 11:10 Darvocet-N) sulfamethoxazole (From Allergy ADR-Nausea Verified 06/21/24 11:10 Bactrim) trimethoprim (From Bactrim) Allergy ADR-Nausea Verified 06/21/24 11:10 PFSH Acute PFSH: Medical History HOCM (hypertrophic obstructive cardiomyopathy) Immunocompromised Sarcoidosis Lupus (systemic lupus erythematosus) HTN (hypertension) Dyslipidemia Asthma exacerbation Asthma Type 2 diabetes mellitus Family History Denies family history of Diabetes CAD (coronary artery disease) Chronic kidney disease (CKD) Cancer Social History Smoking and tobacco/nicotine status: former use of tobacco/nicotine Alcohol intake: never Substance/Drug Use: never Lives independently: No Household members: family Housing: House Vitals/I&O/Wt Last Vital Signs Temp 98.4 F 06/21/24 11:02 Pulse 74 06/21/24 12:03 Resp 18 06/21/24 12:03 BP 144/85 06/21/24 12:03 Pulse Ox 99 06/21/24 12:03 O2 Del Method Room Air 06/21/24 12:03 Weight last 48 hrs Weight 104.326 kg Physical Exam Narrative: Patient is awake and alert No active chest pain Pleuritic pain Signs of fluid overload Lower extremity edema S1, S2 Currently room air Hemodynamically stable GCS 15 AO x 4 Data 06/21/24 11:30 06/21/24 11:30 A&P Assessment and plan (1) HOCM (hypertrophic obstructive cardiomyopathy): (2) Chest pain: (3) Asthma with exacerbation: Plan Atypical chest pain Pleuritic in nature Will require stress test tomorrow N.p.o. 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
--- NOTE | 2024-06-21 12:39 | USCV_ITS ---
Fariha Beard Age: 48 Gender: F : 1975 Exam Date: 06/21/2024 14:39 Ordering Phys: Shanita Plummer MD Technologist: Exam [place] [facility] [place] Ind[place]: BP: 206 / 134 HR: 74 Rhythm: Sinus Technical Quality: Adequate MEASUREMENTS (Male / Female) Normal Values 2D ECHO LV Diastolic Diameter PLAX 4.9 cm 4.2 - 5.9 / 3.9 - 5.3 cm IVS Diastolic Thickness 1.3 cm 0.6 - 1.0 / 0.6 - 0.9 cm IVS Systolic Thickness 2.0 cm LVPW Diastolic Thickness 1.6 cm 0.6 - 1.0 / 0.6 - 0.9 cm LVPW Systolic Thickness 2.0 cm LVOT Diameter 2.0 cm LV Ejection Fraction 2D Teich 76.9 % LV Ejection Fraction MOD 4C 51.2 % LV Ejection Fraction MOD 2C 61.5 % LV Ejection Fraction 2C AL 62.5 % LA Diameter 4.0 cm RA Systolic Volume 4C AL 55.4 ml RA Systolic Volume 4C MOD 53.3 ml Aorta at Sinotubular Diameter 2.4 cm IVC Diameter 1.7 cm M-MODE LA Ao Ratio MM 1.6 AV Cusp Separation MM 2.2 cm DOPPLER AV Peak Velocity 169.0 cm/s LVOT Peak Velocity 140.0 cm/s AV Area Cont Eq vti 2.7 cm squared AV Area Cont Eq pk 2.6 cm squared MV Peak Velocity 129.0 cm/s MV Area PHT 5.0 cm squared Mitral E to A Ratio 1.2 TV Peak Velocity 200.5 cm/s TR Peak Velocity 314.0 cm/s TR Peak Gradient 39.4 mmHg PV Peak Velocity 107.0 cm/s FINDINGS Left Ventricle Moderate left ventricular hypertrophy. Normal left ventricular size and systolic function, EF 76%. Right Ventricle The right ventricle is normal in size and function. Right Atrium The right atrium is normal in size. Left Atrium Moderately increased left atrial size. Mitral Valve Mild mitral annular calcification. Moderately severe mitral regurgitation.-appears to have an eccentric jet Aortic Valve No gross abnormalities noted. The resting velocity at the LV outflow tract was 1.4 m/s Tricuspid Valve Trace tricuspid valve regurgitation. Pulmonic Valve Pulmonic valve not well visualized. Pericardium Normal pericardium without effusion. Aorta Normal ascending aorta dimension. IVC Normal inferior vena cava. CONCLUSIONS Moderate left ventricular hypertrophy. Normal left ventricular size and systolic function, EF 76%. Mild mitral annular calcification. Possible moderately severe mitral regurgitation.-appears to have an eccentric jet. Slightly elevated LVOT velocity, at rest. No Valsalva maneuvers were performed Trace tricuspid valve regurgitation. Estimated pulmonary artery peak systolic pressure 43 mmHg Compared to the study from 10/27/2020, the mitral regurgitation seems to be getting worse. No significant gradient across the LV outflow tract at rest. Consider TAURUS to better evaluate the mitral regurgitation. Also may repeat the LVOT velocity with the Valsalva maneuver Dr Gigi Macdonald MD [facility] (Electronically Signed) Final Date: 23 June 2024 05:35 S
--- NOTE | 2024-06-21 13:00 | ECG_ITS ---
[employer] Test Date: 2024-06-21 Pat Name: Fariha Beard Department: Room: Gender: Female Continuous Improvement Specialist: : 1975 Requested By: Ivone Elkins Order Number: [id number] Olivia MD: Gigi Macdonald M.D. Measurements Intervals [place] Rate: 62 P: 50 NM: 187 QRS: 54 QRSD: 86 T: 211 QT: 413 QTc: 420 Interpretive Statements SINUS RHYTHM POSSIBLE LEFT ATRIAL ENLARGEMENT [-0.1mV P-WAVE IN V1/V2] ST DEVIATION AND MODERATE T-WAVE ABNORMALITY, CONSIDER ANTEROLATERAL ISCHEMIA [-0.1+ mV T-WAVE IN V3-V6] ST DEVIATION AND MODERATE T-WAVE ABNORMALITY, CONSIDER INFERIOR ISCHEMIA [-0.1+ mV T-WAVE IN II/aVF] Compared to ECG 06/21/2024 11:18:12 No significant changes Electronically Signed On 06-22-2024 18:24:12 BOX OFFICE CLERK by Gigi Macdonald M.D. [email or web address] [id number]
[2024-06-21 13:13] LABS: D Dimer 0.43 ug/mLFEU (0-0.59)
[2024-06-21 13:24] LABS: Troponin 5 2HR 11.49 ng/L (0-10); Troponin 5 2HR Delta 0.49 ABS# (0-10)
[2024-06-21] MEDS: gabapentin 300 mg Capsule PO ×2 (14:56→20:03)
[2024-06-21] MEDS: enoxaparin 100 mg/mL Syringe SUBCUT (14:56)
[2024-06-21] MEDS: TRAMadol 50 mg Tablet PO (15:12)
--- NOTE | 2024-06-21 15:37 | ECG_ITS ---
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 Interpretive Statements Lung unchanged pre/post procedure; Intraprocedure shortess of breath; Symptoms resoled by discharge PROCEDURE: At the baseline, the EKG revealed normal sinus rhythm with a diffuse ST-T changes. The baseline heart was 68 bpm with a blood pressue of 148/77 mm of Hg Lexiscan was infused over a period of 20 seconds. A total of 0.4 milligrams of Lexiscan was infused. The stress phase was continued for a total of 5 minutes. Heart rate at the end of the stress phase was heavy baseline artifact; need to repeat bpm with a blood pressure 150/77 mm of Hg. The EKG at the peak infusion revealed no significant changes. Sestamibi was injected 20 seconds after the Lexiscan infusion. Heart rate at the end of the recovery phase was 81 bpm with a blood pressure of 143/76 mm of Hg. CONCLUSION: 1. No significant EKG changes with the LexiScan infusion 2. No LexiScan induced chest pain or cardiac arrhythmia 3. Normal blood pressure and heart rate response 4. Sestamibi/sestamibi perfusion scan pending; see separate report. Electronically Signed On 06-27-2024 07:09:05 ETHYLENE COMPRESSOR OPERATOR by Gigi Macdonald M.D. [id number] [id number]
--- NOTE | 2024-06-21 17:00 | ECG_ITS ---
[employer] Test Date: 2024-06-21 Pat Name: Fariha Beard Department: Room: EDIP Gender: Female Global Security Architect: : 1975 Requested By: Ivone Elkins Order Number: [id number] Olivia MD: Gigi Macdonald M.D. Measurements Intervals [place] Rate: 67 P: 45 MO: 190 QRS: 42 QRSD: 85 T: 204 QT: 416 QTc: 442 Interpretive Statements SINUS RHYTHM POSSIBLE LEFT ATRIAL ENLARGEMENT [-0.1mV P-WAVE IN V1/V2] ST DEVIATION AND MODERATE T-WAVE ABNORMALITY, CONSIDER ANTEROLATERAL ISCHEMIA [-0.1+ mV T-WAVE IN V3-V6] ST DEVIATION AND MODERATE T-WAVE ABNORMALITY, CONSIDER INFERIOR ISCHEMIA [-0.1+ mV T-WAVE IN II/aVF] Compared to ECG 06/21/2024 12:47:06 No significant changes Electronically Signed On 06-22-2024 18:24:18 SENIOR NAVAL PARACHUTIST by Gigi Macdonald M.D. [id number] [id number]
[2024-06-21 17:24] LABS: Glucose Point of Care 123 mg/dL (70-110)
[2024-06-21] MEDS: bumetanide 0.25 mg/mL SDV 4 mL 1 MG IVP (17:26)
[2024-06-21] MEDS: pantoprazole 40 mg SDV IVP (17:34)
[2024-06-21 17:56] LABS: Troponin 5 6HR 10.93 ng/L (0-10)
[2024-06-21 18:01] LABS: Troponin 5 6HR Delta -0.07 ng/L (0-12)
--- NOTE | 2024-06-21 19:23 | PC.NURSE ---
pt report called to Med surg Jacqui at 1922.
[2024-06-21] MEDS: duloxetine 60 mg Capsule PO (20:03)
[2024-06-21] MEDS: enoxaparin 40 mg/0.4 mL Syringe SUBCUT (20:03)
[2024-06-21 20:43] LABS: HCG, Serum Qual Negative (Negative)
[2024-06-21 20:55] LABS: Glucose Point of Care 200 mg/dL (70-110)
[2024-06-22 03:07] LABS: Basophils # 0.1 10^3/uL (0.0-0.1); Basophils % 0.7 %; Eosinophils # 0.6 10^3/uL (0.0-0.8); Eosinophils % 6.5 %; Hematocrit 34.8 % (36-47); Lymphocytes # 2.9 10^3/uL (0.8-4.8); Lymphocytes % 31.7 %; Mean Corpuscular Hemoglobin 30.1 pg (27-33); Mean Corpuscular Volume 96.9 fl (85-98); Mean Platelet Volume 9.1 fL (7.4-10.4); Monocytes # 0.8 10^3/uL (0.2-0.9); Monocytes % 8.3 %; Neutrophils # 4.62 10^3/uL (1.8-7.7); Nucleated Red Blood Cells % 0 %; Platelet Count 439 10^3/cmm (157-399); Red Blood Count 3.59 10^6/uL (3.85-5.65); Red Cell Distribution Width 13.7 % (12.1-15.1); White Blood Count 9.05 10^3/uL (3.29-11.43)
[2024-06-22 03:27] LABS: Anion Gap 13.9 (5-19); Blood Urea Nitrogen 17 mg/dL (6-20); Calcium 9.3 mg/dL (8.5-10.5); Carbon Dioxide 28 mmol/L (22-29); Chloride 105 mmol/L (98-107); Creatinine Clr Calc Pharmacy 98.5248; Glomerular Filtration Rate 76.9 mL/min (90-130); Glucose 118 mg/dL (65-115); Magnesium 2.1 mg/dL (1.7-2.3); Osmolality Calculated 299 mOsm/kg (285-295); Potassium 3.9 mmol/L (3.5-5.1); Sodium 143 mmol/L (136-145)
[2024-06-22 06:30] LABS: Glucose Point of Care 110 mg/dL (70-110)
[2024-06-22] MEDS: regadenoson 0.4 Mg/5 ml Syringe IVP (07:31)
[2024-06-22 07:45] VITALS: BP 143/76; PULSE 82
[2024-06-22 08:58] VITALS: BP 155/87; PULSE 68; RESP 16; TEMP 36.7; O2SAT 100
[2024-06-22] MEDS: insulin glargine 100 units/1 mL 40 UNIT SUBCUT (09:30)
[2024-06-22] MEDS: gabapentin 300 mg Capsule PO ×3 (09:30→21:20)
[2024-06-22] MEDS: duloxetine 60 mg Capsule PO ×2 (09:30→17:43)
[2024-06-22] MEDS: lisinopril 20 mg Tablet 30 MG PO (09:30)
[2024-06-22] MEDS: enoxaparin 40 mg/0.4 mL Syringe SUBCUT ×2 (09:30→21:20)
[2024-06-22] MEDS: pantoprazole 40 mg SDV IVP ×2 (09:31→17:43)
--- NOTE | 2024-06-22 10:04 | PC.CHAP ---
Pastoral Care Encounter/Spiritual Assessment Type of Contact [] Declined sustainable landscape architect visit [] Patient/Family/Request visit [] Outpatient visit [] Follow-up visit [] Physician referral [] Code/Alert [x] Routine visit [] Staff referral [] Actively dying [] Patient sleeping [] Family support [] [] Out of room [] Palliative care [] [] Receiving care in room [] Pre-surgical visit [] Trauma [] Long length of stay [] ICU visit [] Other: Relational/Emotional Strength [x] Patient feels connected with others/family/visitors/staff [] Distress [] Loneliness/isolation [] Abandonment Spirituality of Patient [x] Person of Alina [x] Attends Mandaeism of their Alina [x] Believes in Prayer [x] Reads Bible or Latter Day materials [] There are Spiritual issues to be addressed Tire Recapping Machine Operator Interventions [x] Prayer [x] Active listening [x] Non-anxious presence [x] Spiritual/emotional support [] Crisis/trauma care [] Spiritual counseling [] Bereavement support [] Provided bereavement packet [] Provided Bible/devotional materials [] Provided toy/stuffed animal, coloring book to patient or family member [] Provided Communion [] Anointing/[place] [] Salvation [x] Completed spiritual assessment [] Other: Impact on Illness or Injury [] Angry [] Fearful [] Anxious [] Often cries [] Exhaustion [] Unable to work [] Unable to attend methodist [] Unable to walk/stand [] Unable to read [] Unable to drive [] Unable to eat/drink [] Unable to sleep [] Unable to be with family [] Patient intubated [] Other: Summary Time spent with patient 10 min
[2024-06-22 10:52] LABS: Glucose Point of Care 116 mg/dL (70-110)
[2024-06-22 11:08] VITALS: BP 151/90; PULSE 79; RESP 15; TEMP 36.8; O2SAT 98
--- NOTE | 2024-06-22 13:37 | P.PN_ITS ---
Subjective 2 Subjective: Cardiac stress test positive with an RCA and left circumflex territory Vitals/I&O/Wt Last Vital Signs Temp 98.3 F 06/22/24 11:08 Pulse 79 06/22/24 11:08 Resp 15 06/22/24 11:08 BP 151/90 06/22/24 11:08 Pulse Ox 98 06/22/24 11:08 O2 Del Method Room Air 06/22/24 11:08 06/21/24 06/22/24 06/22/24 22:59 06:59 14:59 Intake Total 480 / 480 240 / 240 Balance 480 / 480 240 / 240 Weight last 48 hrs Weight 104.553 kg Weight 104.326 kg Physical Exam 2 Narrative: Patient awake and alert Chest pain-free Hemodynamic stable hypervolemia improving GCS 15 AO x 4 Hypertensive Currently on room air Data 06/22/24 02:38 06/22/24 02:38 A&P Assessment and plan (1) Chest pain: (2) Asthma with exacerbation: (3) CHF exacerbation: Plan Positive stress test Diffuse T wave inversion on EKG Patient is stating that with diuresis overnight her chest pain on left side has improved She is hemodynamically stable on room air No significant delta troponin noted Echo report is pending Full code Consistent carb diet with insulin and sliding scale Will place consult for cardiology, to evaluate patient for coronary ischemia workup Continue consistent carb diet for now PDMP PDMP Reviewed: Not Reviewed Attestations 2 Medical Necessity Statement*: continue hospitalization patient needs coronary ischemic evaluation Diagnoses Chest pain R07.9 Asthma with exacerbation J45.901 CHF exacerbation I50.9
--- NOTE | 2024-06-22 14:13 | PC.NURSE ---
HOT DIP PLATER reports pt c/o pain. This nurse went to find out type of pain, pt reports generalized pain and that she threw up. This nurse offered zofran and pt states she is not nauseous and throws up when in pain. Pt states she would not keep anything down. Offered to contact doctor to get something IV pt states just forget it, I will just see if she can get out of here.
--- NOTE | 2024-06-22 14:44 | P.CONIM_ITS ---
<Statement entered by Shanita Parry MD - 06/22/24 21:03> Patient was evaluated and cared for in conjunction with an advanced practice practitioner. I personally examined the patient and reviewed the chart and all pertinent data including imaging, telemetry, and laboratory results. I discussed the patient in detail with the advanced practice practitioner. Please see their note for complete H&P testing result and agreed upon plan of care for the patient. 48-year-old female past medical history significant for hypertension and salt acquired premature history of coronary artery disease in the family with history of smoking in the past presented with chest pain, she was ruled out for acute coronary syndrome but stress test appeared to be positive it is the reason we have been asked to see the patient. GENERAL: Patient is alert, awake and oriented x3. HEART: Regular S1 and S2. No murmur, rub or gallop. LUNGS: Clear to auscultate bilaterally. CENTRAL NERVOUS SYSTEM: Grossly nonfocal. EXTREMITIES: Lower extremities with out edema bilaterally. Assessment and plan Chest pain Abnormal stress test History of sarcoid History of premature family coronary artery disease Hypertension Discussed in detail with the patient all risk-benefit and alternative for the procedure given the fact of her risk factors abnormal EKG chest pain and abnormal stress test we will proceed with left heart cath/PCI if indicated. Patient has been explained all risk-benefit and alternative for the procedure she would like to proceed with that. We will schedule patient after 11:00 because of other many cases tomorrow it is a possibility patient may can be deferred to next morning secondary to nonavailability of the Power Plant Operations Manager due to long list patient understood at we will keep patient n.p.o. overnight with tentative schedule to perform cath 11 AM tomorrow Providers/Reason For Consult 2 Consulting Physician/Specialty*: Shanita Parry MD Reason for Consult*: Chest pain, abnormal stress test Requesting Physician: Dr. Plummer Attending Physician: Shanita Plummer MD Primary Care Provider: ROSALEE Loya History of Present Illness History of Present Illness This is a 48-year-old female who has a history of lupus sarcoidosis hypertension dyslipidemia type 2 diabetes, asthma that came into the ER yesterday due to increased shortness of breath and atypical chest pains. She stated that she had gained quite a bit of weight in the last couple weeks. She also noticed swelling in her legs that was worse than normal. She states that the chest pain was sharp and substernal. It did not radiate anywhere. She did have some nausea associated with this. She states that she has had these before and they were most often associated with her sarcoidosis flareups but for the most part they have been well-controlled until now. She denies any history of heart disease but has a strong family history in which her father had multiple stents at a young age. EKG showed diffuse T wave inversions not changed from previous EKG. Troponin was slightly abnormal at 11?11 0.49?10.93 with delta negative. She was given Bumex IV. She states she did have orthopnea but this has resolved. She states her shortness of breath is much improved. Overall she appears euvolemic at this time. She denies any chest pain at this time. Echo is pending at this time. She had a stress test that showed small to moderate area of slightly decreased tracer uptake involving the inferior and apical lateral segments with significant reversibility seen. Ejection fraction was normal at 71% without wall motion abnormalities. 3 times daily ratio was elevated at 1.32. Review of Systems 2 Narrative: Consitutional: denies fever, chills, body aches, or changes in appetite, denies abnormal weight loss Eyes: Denies changes in vision Card: Denies chest pain, palpitations, irregular heart rhythm, reports lower extremity swelling, denies syncope, shortness of breath, orthopnea, leg pain with exertion Resp: Denies shortness of breath, denies hemoptysis, denies cough GI: denies abdominal pain, denies nausea or vomiting, denies blood in stool : denies blood in urine, denies dysuria Musc: reports whole body pains and aches, chronic Skin: Denies rash, lesions, or wounds, denies changes to skin color Neuro: Denies nubmness in extremities, h/a, s/s of stroke David: Denies easy bruiding/bleeding All: Denies s/s of allergies Medications/Allergies Home Medications ?Medication ?Instructions ?Recorded ?Confirmed ?Last Taken ?Type adalimumab 40 mg/0.4 mL 40 mg SUBCUT Q7D 06/08/1906/21/24 History subcutaneous pen kit (Humira(CF) Pen) azathioprine 50 mg tablet See Rx Instructions .Route . COMPLEX 06/08/19 06/21/24 06/21/24 History calcium 600 mg (as 1 cap PO DAILY 06/08/1906/1106/21/24 History carbonate)-vitamin D3 12.5 mcg (500 unit) capsule (Calcium with Vit D3) epinephrine 0.3 mg/0.3 mL See Rx Instructions .Route . COMPLEX 06/08/19 06/21/24 Unknown History injection, auto-injector furosemide 20 mg tablet (Lasix) 20 mg PO DAILY PRN Thomas ma 06/08/19 06/21/24 08/29/21 History hydrochlorothiazide 25 mg tablet 25 mg PO DAILY 06/21/24 06/21/24 History insulin aspart U-100 100 unit/mL See Rx Instructions . Route .COMPLEX 06/08/19 06/21/24 06/21/24 History (3 mL) subcutaneous pen (Novolog FlexPen U-100 Insulin aspart) insulin glargine 100 unit/mL (3 50 unit SUBCUT BEDTIME 06/08/19 06/21/24 06/20/24 History mL) subcutaneous pen (Lantus Solostar U-100 Insulin) lisinopril 30 mg tablet 30 mg PO DAILY 06/08/1906/1106/21/24 History multivitamin (Multiple Vitamins 1 tab PO DAILY 0 06/21/24 06/21/24 History tablet) mupirocin 2 % topical ointment 1 applic topical PRN SD N skin 06/08/19 06/21/24 Unknown History irritaion omeprazole 40 mg capsule,delayed 40 mg PO DAILY 06/21/24 06/21/24 History release potassium chloride 10 mEq 10 meq PO DAILY PRN while ta lorie 06/08/19 06/21/24 08/29/21 History tablet,extended release lasix tramadol 50 mg tablet 50 mg PO Q4H PRN Pain 06/21/24 10/26/20 History fluticasone propionate 50 1 spray intranasal BID PRN N eliseo 10/26/20 06/21/24 06/21/24 History mcg/actuation nasal Congestion spray,suspension gabapentin 300 mg capsule 300 mg PO TID 10/26/2006/2106/21/24 History tizanidine 4 mg tablet 8 mg PO QPM PRN Muscle Pain 10/26/20 06/21/24 Unknown History ipratropium bromide 0.02 % 2.5 ml inhalation Q6H PRN 0 12/10/20 06/21/24 Unknown History solution for inhalation Shortness Of Breath albuterol sulfate 90 mcg/actuation 2 inh inhalation Q6 H PRN shortness 08/29/21 06/21/24 Unknown Rx aerosol inhaler (Ventolin HFA) of breath or wheezing # 6.7 grams duloxetine 60 mg capsule,delayed 60 mg PO BID 08/29/21 06/21/24 06/21/24 History release magnesium 200 mg tablet 200 mg PO DAILY 08/29/2104/0406/21/24 History montelukast 10 mg tablet 10 mg PO DAILY 08/29/2106/1106/21/24 History atorvastatin 20 mg tablet 20 mg PO QPM 06/21/2406/20/24 History doxycycline hyclate 100 mg tablet 100 mg PO BID 06/21/24 06/21/24 History duloxetine 20 mg capsule,delayed See Rx Instructions . Route .COMPLEX 06/21/24 06/21/24 06/21/24 History release meloxicam 15 mg tablet 15 mg PO DAILY 06/21/2406/1106/21/24 History semaglutide 1 mg/dose (4 mg/3 mL) 1 mg SUBCUT Q7D 06/1106/21/24 06/20/24 History subcutaneous pen injector (Ozempic) Allergies Allergy/AdvReac Type Severity Reaction Status Date / Time coconut Allergy ALGY-Bliste Verified 06/21/24 11:10 r doxycycline Allergy ALGY-Rash Verified 06/21/24 11:10 oxycodone (From Percocet) Allergy ALGY-Rash Verified 06/21/24 11:10 propoxyphene (From Allergy ALGY-Rash Verified 06/21/24 11:10 Darvocet-N) sulfamethoxazole (From Allergy ADR-Nausea Verified 06/21/24 11:10 Bactrim) trimethoprim (From Bactrim) Allergy ADR-Nausea Verified 06/21/24 11:10 Current Medications Generic Name Dose Route Start Last Admin Trade Name Freq PRN Reason Stop Dose Admin Bumetanide 1 mg 06/21/24 16:15 06/21/24 17:26 Bumetanide 0.25 Mg/Ml Sdv 4 Ml IVP 1 mg Q24H KASSI Administration Duloxetine HCl 60 mg 06/21/24 19:53 06/22/24 09:30 Duloxetine 60 Mg Capsule PO 60 mg BID KASSI Administration Enoxaparin Sodium 40 mg 06/21/24 21:00 06/22/24 09:30 Enoxaparin 40 Mg/0.4 Ml Syringe SUBCUT 40 mg Q12H KASSI Administration Gabapentin 300 mg 06/21/24 15:00 06/22/24 09:30 Gabapentin 300 Mg Capsule PO 300 mg TID KASSI Administration Insulin Glargine 40 unit 06/22/24 09:00 06/22/24 09:30 Insulin Glargine 100 Units/1 Ml SUBCUT 40 unit DAILY KASSI Administration Insulin Human Lispro 0 unit 06/21/24 18:00 06/22/24 11:06 Insulin Lispro 100 Unit/1 Ml SUBCUT Not Given [facility] Protocol Lisinopril 30 mg 06/22/24 09:00 06/22/24 09:30 Lisinopril 20 Mg Tablet PO 30 mg DAILY KASSI Administration Pantoprazole Sodium 40 mg 06/21/24 18:00 06/22/24 09:31 Pantoprazole 40 Mg Sdv IVP 40 mg BID KASSI Administration PFSH Acute 2 PFSH: Medical History (Updated 06/22/24 @ 14:59 by Reanna Walden NP) HOCM (hypertrophic obstructive cardiomyopathy) Immunocompromised Sarcoidosis Lupus (systemic lupus erythematosus) HTN (hypertension) Dyslipidemia Asthma exacerbation Asthma Type 2 diabetes mellitus Family History Denies family history of Diabetes CAD (coronary artery disease) Chronic kidney disease (CKD) Cancer Social History Smoking and tobacco/nicotine status: former use of tobacco/nicotine Alcohol intake: never Substance/Drug Use: never Lives independently: No Household members: family Housing: House Vitals/I&O/Wt Last Vital Signs Temp 98.3 F 06/22/24 11:08 Pulse 79 06/22/24 11:08 Resp 15 02/12/25 11:08 BP 151/90 06/22/24 11:08 Pulse Ox 98 06/22/24 11:08 O2 Del Method Room Air 06/22/24 11:08 06/21/24 06/22/24 06/22/24 22:59 06:59 14:59 Intake Total 480 / 480 240 / 240 Balance 480 / 480 240 / 240 Weight last 48 hrs Weight 230 lb 8 oz Weight 230 lb Physical Exam 2 Narrative: General: No apparent distress, healthy appearing, well nourished HENMT: normoceophalic Neck: No carotid bruit bilaterally Muskuloskeletal: Full ROM Lymphatic: no lymphedema noted Respiratory: Normal respiratory effort, clear to auscultation bilaterally throughout all lung villagran, no use of accessory muscles Cardio: No JVD, regular rate, regular rhythm, S1 S2 normal, no murmurs, peripheral pulses 2+ radial palpated bilaterally GI: Normal to inspection, nondistended Extremities: Full ROM, normal, normal capillary refill, no cyanosis or edema Neuro: Alert and oriented x4, no focal motor deficits Psych: Affect normal, denies suicidal ideation, mental status grossly normal Skin: varicose veins bilateral lower extremities Data 06/22/24 02:38 06/22/24 02:38 Other data: Stress test IMPRESSIONS 1. Myocardial perfusion imaging revealing small area of slightly decreased tracer uptake involving the inferior and apical lateral region with some reversibility, suggesting ischemia in the distribution of the right coronary artery/circumflex artery. The elevated transient ischemic elevation ratio also may suggest endocardial ischemia 2. Normal ejection fraction of 71%. 3. LV wall motion analysis revealing no gross wall motion abnormalities. 4. Normal LV volume No similar previous studies are available for comparison A&P Assessment and plan (1) Chest pain: Qualifiers: Chest pain type: unspecified Qualified Code(s): R07.9 - Chest pain, unspecified (2) CHF exacerbation: Qualifiers: Heart failure type: unspecified Qualified Code(s): I50.9 - Heart failure, unspecified (3) Type 2 diabetes mellitus: Qualifiers: Diabetes mellitus half-way insulin use: with half-way use Diabetes mellitus complication status: without complication Qualified Code(s): E11.9 - Type 2 diabetes mellitus without complications; Z79.4 - snf (current) use of insulin (4) Hypercholesteremia: Plan Due to patient's ongoing symptoms as well as abnormal stress test is our recommendation to proceed with left heart cath to rule out underlying coronary artery disease. Plan is to place patient on the schedule for tomorrow. Patient will be n.p.o. after midnight. She was discussed the risks and benefits of the procedure and wishes to proceed. Thank you for allowing us to care for this very pleasant 48 year old female. PDMP PDMP Reviewed: Not Reviewed Consult Attestations 2 Medical Necessity Statement: Deferred to primary care. Coding Level of Care Code Acute Code for [facility] Fwd Diagnoses Chest pain, unspecified type R07.9 Chest pain type: unspecified Acute on chronic congestive heart failure, unspecified heart failure type I50.9 Heart failure type: unspecified Type 2 diabetes mellitus without complication, with long-term current use of insulin E11.9; Z79.4 Diabetes mellitus half-way insulin use: with long term care social worker use Diabetes mellitus complication status: without complication Hypercholesteremia E78.00
[2024-06-22] MEDS: TRAMadol 50 mg Tablet PO ×2 (15:18→19:21)
--- NOTE | 2024-06-22 15:37 | NMCV_ITS ---
NM rafaela perf SPECT r/s* [id number] Fariha Beard Age: 48 Gender: F : 1975 Exam Date: 06/22/2024 15:37 Ordering Phys: Shanita Plummer MD Technologist: LORNE Mcmanus Exam Location: [facility] Indications: CP STRESS TEST Please see separate stress test report in [employer] for full findings IMAGE PROTOCOL Rest/Stress 1 Lexiscan Day Radiopharmaceutical Dose (mCi) Administration Site Administered by Rest: Tc-99m 11 IV Sofia Connie, OSD CLERK Sestamibi Stress:Tc-99m 32.5 IV Sofia Connie, OSD CLERK Sestamibi Rest: 22-Jun-2024 60 Discovery 630 Stress: 22-Jun-2024 30 Discovery 630 0.4mg Lexiscan. Images obtained in supine and prone position. SPECT RESULTS Technical Quality: Good Raw Data Analysis: Normal Image Corrections: No attenuation or motion correction applied Summed Stress Score: 3 Summed Rest Score: 0 Summed Difference Score: 3 PERFUSION FINDINGS A small to moderate area of slightly decreased tracer uptake involving the mid and apical inferior and apical lateral segments. Significant reversibility was noted in this region at rest. FUNCTIONAL RESULTS (calculated via Gated SPECT) Stress Image LV EF (%): 71 Stress EDV (mL):109 TID: 1.32 Stress ESV (mL):32 FUNCTIONAL FINDINGS: Segmental wall motion analysis revealing no gross wall motion abnormalities. Elevated transient ischemic dilatation ratio 1.32 IMPRESSIONS 1. Myocardial perfusion imaging revealing small area of slightly decreased tracer uptake involving the inferior and apical lateral region with some reversibility, suggesting ischemia in the distribution of the right coronary artery/circumflex artery. The elevated transient ischemic elevation ratio also may suggest endocardial ischemia 2. Normal ejection fraction of 71%. 3. LV wall motion analysis revealing no gross wall motion abnormalities. 4. Normal LV volume No similar previous studies are available for comparison Dr Gigi Macdonald MD FACC (Electronically Signed) Final Date: 22 June 2024 13:35 S
[2024-06-22 15:44] VITALS: BP 126/61; PULSE 78; RESP 16; TEMP 36.9; O2SAT 97
[2024-06-22] MEDS: bumetanide 0.25 mg/mL SDV 4 mL 1 MG IVP (16:43)
[2024-06-22 17:05] LABS: Glucose Point of Care 137 mg/dL (70-110)
[2024-06-22] MEDS: atorvastatin 40 mg Tablet 20 MG PO (17:43)
[2024-06-22] MEDS: acetaminophen 500 mg Tablet PO (19:20)
[2024-06-22 19:45] VITALS: BP 135/84; PULSE 72; RESP 15; TEMP 36.7; O2SAT 99
[2024-06-22 20:12] LABS: Glucose Point of Care 132 mg/dL (70-110)
[2024-06-22] MEDS: tizanidine 4 mg Tablet PO (21:20)
[2024-06-23] VITALS (17 sets, daily range): BP systolic 106–165; BP diastolic 65–84; PULSE 68–84; RESP 12–20; TEMP 36.5–36.8; O2SAT 93–99
[2024-06-23 06:17] LABS: Glucose Point of Care 100 mg/dL (70-110)
[2024-06-23 06:26] LABS: Blood Urea Nitrogen 23 mg/dL (6-20); Calcium 9.2 mg/dL (8.5-10.5); Carbon Dioxide 26 mmol/L (22-29); Chloride 101 mmol/L (98-107); Creatinine Clr Calc Pharmacy 112.8276; Glomerular Filtration Rate 89.7 mL/min (90-130); Glucose 96 mg/dL (65-115); Osmolality Calculated 294 mOsm/kg (285-295); Sodium 140 mmol/L (136-145)
[2024-06-23] MEDS: acetaminophen 500 mg Tablet PO (07:24)
[2024-06-23] MEDS: TRAMadol 50 mg Tablet PO (07:24)
[2024-06-23] MEDS: montelukast sodium 10 mg Tablet PO (09:21)
[2024-06-23] MEDS: lisinopril 20 mg Tablet 40 MG PO (09:21)
[2024-06-23] MEDS: hydroCHLOROthiazide 25 mg Tablet PO (09:21)
[2024-06-23] MEDS: gabapentin 300 mg Capsule PO ×2 (09:21→15:06)
[2024-06-23] MEDS: tizanidine 4 mg Tablet PO (09:21)
[2024-06-23] MEDS: aspirin 325 mg Tablet PO (09:21)
[2024-06-23] MEDS: duloxetine 60 mg Capsule PO (09:29)
[2024-06-23] MEDS: pantoprazole DR 40 mg Tablet PO (09:29)
--- NOTE | 2024-06-23 10:35 | PC.CHAP ---
Pastoral Care Encounter/Spiritual Assessment Type of Contact [] Declined cyber legal advisor visit [] Patient/Family/Request visit [] Outpatient visit [] Follow-up visit [] Physician referral [] Code/Alert [x] Routine visit [] Staff referral [] Actively dying [] Patient sleeping [] Family support [] [] Out of room [] Palliative care [] [] Receiving care in room [] Pre-surgical visit [] Trauma [] Long length of stay [] ICU visit [] Other: Relational/Emotional Strength [] Patient feels connected with others/family/visitors/staff [x] Distress [x] Loneliness/isolation [] Abandonment Spirituality of Patient [x] Person of Alina [] Attends Nondenominational of their Alina [x] Believes in Prayer [x] Reads Bible or Hinduism materials [] There are Spiritual issues to be addressed Fur Blower Interventions [x] Prayer [x] Active listening [x] Non-anxious presence [x] Spiritual/emotional support [] Crisis/trauma care [] Spiritual counseling [] Bereavement support [] Provided bereavement packet [] Provided Bible/devotional materials [] Provided toy/stuffed animal, coloring book to patient or family member [] Provided Communion [] Anointing/[place] [] Salvation [x] Completed spiritual assessment [] Other: Impact on Illness or Injury [] Angry [] Fearful [] Anxious [] Often cries [] Exhaustion [] Unable to work [] Unable to attend jewish [] Unable to walk/stand [] Unable to read [] Unable to drive [] Unable to eat/drink [] Unable to sleep [] Unable to be with family [] Patient intubated [] Other: Summary Time spent with patient 30 min
[2024-06-23 10:59] LABS: Glucose Point of Care 76 mg/dL (70-110)
--- NOTE | 2024-06-23 11:00 | PC.NURSE ---
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
--- NOTE | 2024-06-23 11:26 | W.PM.OPSUD ---
Surgery/Procedure H&P Update DATE OF PROCEDURE: June 23, 2024 DATE H&P PERFORMED: 06/22/24 H&P UPDATE INFORMATION: I have reviewed H&P completed within last 30 days, I have examined patient prior to procedure and No changes to prior documentation PREOP DIAGNOSIS: Abnormal stress test/chest pain PRIMARY INDICATION FOR PROCEDURE: Abnormal stress test/chest pain PATIENT REASSESSED PRIOR TO SEDATION, WITH NO CHANGE NOTED: Yes PHYSICAL EXAM: alert, oriented x 3, clear to auscultation bilaterally, regular rate & rhythm and operative site marked AIRWAY EVAL/ANESTHESIA PLAN: ASA II, Risks, benefits & alternatives of sedation and/or procedure discussed and Patient agrees to continue as planned ADDITIONAL INFORMATION: Patient has been explained all risk-benefit and alternative for the procedure. She understand risk for 2% stroke major bleed urgent or emergent bypass/vascular surgery. She understand risk for contrast-induced nephropathy major bleeding hematoma bruising. She understood it clearly and would like to proceed with it.
--- NOTE | 2024-06-23 12:05 | PM.PROC ---
Procedure Note: Date of procedure: 06/23/24 Pre-procedure diagnosis: Abnormal stress test chest Post-procedure diagnosis: same Procedure: Coronary angiogram was performed: Left main is normal LAD has luminal irregularity without significant stenosis Left circumflex has luminal irregularity without significant RCA is normal without significant stenosis Due to torturous subclavian left ventriculography was not performed, echo result is in Project WBS Plan Continue medical management Noncardiac causes for chest pain may need to be considered Radial band as per protocol From cardiovascular perspective patient can be discharged home today Coding Level of Care Code Acute Code for Chg Fwd
--- NOTE | 2024-06-23 12:06 | P.PN_ITS ---
Subjective 2 Subjective: Patient underwent left heart cath which did not show significant coronary artery disease Vitals/I&O/Wt Last Vital Signs Temp 97.7 F 06/23/24 11:38 Pulse 70 06/23/24 11:38 Resp 20 H 06/23/24 11:38 BP 161/81 06/23/24 11:38 Pulse Ox 98 06/23/24 11:38 O2 Del Method Room Air 06/23/24 08:05 FiO2 21 06/23/24 00:15 06/22/24 06/23/24 06/23/24 22:59 06:59 14:59 Intake Total 480 / 720 Balance 480 / 720 Weight last 48 hrs Weight 237 lb Weight 230 lb 12.8 oz Weight 230 lb 8 oz Physical Exam 2 Const: COMMON NORMALS: alert Resp: COMMON NORMALS: clear to auscultation bilaterally AUSCULTATION: clear to auscultation bilaterally Cardio: OTHER: GENERAL: Patient is alert, awake and oriented x3. HEART: Regular S1 and S2. No murmur, rub or gallop. LUNGS: Clear to auscultate bilaterally. CENTRAL NERVOUS SYSTEM: Grossly nonfocal. EXTREMITIES: Lower extremities with out edema bilaterally. Neuro: SENSORIUM/ORIENTATION: Yes alert Data 06/22/24 02:38 06/23/24 05:52 A&P Assessment and plan (1) Chest pain: Qualifiers: Chest pain type: unspecified Qualified Code(s): R07.9 - Chest pain, unspecified (2) CHF exacerbation: Qualifiers: Heart failure type: unspecified Qualified Code(s): I50.9 - Heart failure, unspecified (3) Type 2 diabetes mellitus: Qualifiers: Diabetes mellitus terminal system operator insulin use: with skilled nursing use Diabetes mellitus complication status: without complication Qualified Code(s): E11.9 - Type 2 diabetes mellitus without complications; Z79.4 - correction (current) use of insulin (4) Hypercholesteremia: (5) HOCM (hypertrophic obstructive cardiomyopathy): (6) Mitral valve regurgitation: Plan Patient underwent left heart catheterization today she was noted to have normal coronaries. Patient has moderate hypertrophic cardiomyopathy. For moderate to severe mitral regurgitation we recommend scheduling transesophageal echocardiogram as an outpatient. Would like to rule out etiology for the mitral valve regurgitation such as systolic anterior motion of the mitral valve. Start patient on metoprolol succinate 12.5 mg once a day Ktx 1 mg once a day Potassium 20 mEq once a day Continue HEBERT inhibitor Follow-up with cardiology in 2 weeks with cardiology nurse practitioner. Follow-up with Dr. Parry in 2 to 3 months. PDMP PDMP Reviewed: Not Reviewed Attestations 2 Medical Necessity Statement*: From cardiovascular perspective patient can be discharged home today Coding Level of Care Code Acute Code for Chg Fwd Diagnoses Chest pain, unspecified type R07.9 Chest pain type: unspecified Acute on chronic congestive heart failure, unspecified heart failure type I50.9 Heart failure type: unspecified Type 2 diabetes mellitus without complication, with long-term current use of insulin E11.9; Z79.4 Diabetes mellitus skilled nursing insulin use: with terminal system operator use Diabetes mellitus complication status: without complication Hypercholesteremia E78.00 HOCM (hypertrophic obstructive cardiomyopathy) I42.1 Mitral valve regurgitation I34.0
--- NOTE | 2024-06-23 12:25 | PC.NURSE ---
Patient arrived from excavation laborer approx 12:20pm. Patient is awake and alert. TR band site observed with excavation laborer team. No bleeding or hematoma formation. patient educated on activity restriction and reluctantly verbalizes understanding. Patient does not always answer questions unless prompted a second time in which then verbalizes in a direct manner. Patient doesnt endorse any pain. Nurse will continue to monitor q15m and remove TR band per protocol.
[2024-06-23] MEDS: sodium chloride 0.9% 1,000 ML 100 ML IV (12:28)
--- NOTE | 2024-06-23 15:03 | P.DS_ITS ---
Discharge Providers Date of Admission: 06/22/24 16:50 Date of Discharge: June 23, 2024 Attending Provider at Admission: Shanita Plummer MD Attending Provider at Discharge: Stephen Perez MD Consults: ROSALEE Reid and Shanita Parry MD Primary Care Provider: ROSALEE Loya Diagnoses at Discharge Discharge Diagnosis (1) Chest pain: Details from hospital stay: Patient with chest pain and abnormal nuclear stress test underwent Superintendent [employer] evaluation today with normal coronary arteries but found to have hypertrophic obstructive cardiomyopathy. Echocardiogram showed moderate LVH with EF of 76% moderately severe MR noted Status: Acute Qualifiers: Chest pain type: unspecified Qualified Code(s): R07.9 - Chest pain, unspecified (2) CHF exacerbation: Details from hospital stay: Patient had recent weight loss with Ozempic for obesity but rapid regain suspected fluid. She was diuresed with some improvement Status: Acute Qualifiers: Heart failure type: unspecified Qualified Code(s): I50.9 - Heart failure, unspecified (3) Type 2 diabetes mellitus: Details from hospital stay: Continue on Ozempic for weight loss and blood sugar control Status: Acute Qualifiers: Diabetes mellitus mcc insulin use: with mcc use Diabetes mellitus complication status: without complication Qualified Code(s): E11.9 - Type 2 diabetes mellitus without complications; Z79.4 - parts counterman (current) use of insulin (4) Hypercholesteremia: Details from hospital stay: Continue antilipid therapy Status: Acute (5) HOCM (hypertrophic obstructive cardiomyopathy): Details from hospital stay: Continue Bumex 1 mg daily potassium 20 mg daily HEBERT inhibitor and add metoprolol 12.5 mg daily Status: Acute (6) Mitral valve regurgitation: Details from hospital stay: Scheduled for transesophageal echo for mitral regurgitation Status: Acute (7) Morbid obesity with BMI of 40.0-44.9, adult: Details from hospital stay: Patient was counseled regarding BMR calculation and recommended caloric intake of 1600 sintia or less daily for goal weight loss of 2 pounds a week. If losing more than 3 pounds a week increase calories to about 2 pounds a week weight loss Okay to do low exertion exercise. If having dyspnea or chest pain need to rest and if not resolved in 5 minutes present to ER Status: Acute Reason for Visit Reason for Visit: chest pain/SOB Brief History: Fariha Beard is a 48 year old female presented to the hospital with chief complaint of worsening of shortness of orthopnea and PND, recently has finished couple courses of antibiotics for sinusitis, with shortness of breath she started getting midepigastric pain radiating towards her neck, mostly gets worse on taking deep breaths and exertion. No recent nausea vomiting or diarrhea, she is noticing weight gain as well her dry weight is close to 209lbs, patient carries history of diabetes, sarcoidosis, follows up with adjunct professor of [facility] [facility] in [place] Hospital Course Hospital Course EKG has T wave inversion diffuse in nature patient has pleuritic pain, I have requested stress test for tomorrow patient is agreeable to stay and get the stress test. Echo showed LVH with a EF of 76% with moderately severe mitral regurg Patient underwent Lexiscan nuclear test on 06/21/2024 showing ischemia in circumflex and RCA territory. Angiogram done 06/23/2024 showed LAD and left circumflex with luminal irregularity without significant stenosis. RCA was normal. Patient's medication recommendations lisinopril, Bumex 1 mg daily potassium 20 mill colons daily and started metoprolol 12.5 mg XL daily. Follow-up outpatient [facility] to look at the mitral regurgitation. Physical Exam Narrative: General well-developed well-nourished morbidly obese female in no acute cardiopulmonary distress CV regular rate and rhythm Lungs clear to auscultation bilaterally Abdomen positive bowel sounds soft nontender Calves trace ankle edema Discharge Data Studies Completed and Pending Completed Studies During Hospitalization Category Date Time Status Sestamibi Stress Test Request Routine Exams 06/21/24 15:37 Draft XR chest 1V portable [id number] Stat Exams 06/21/24 11:00 Completed NM rafaela perf SPECT r/s* [id number] Routine Nuc Med 06/22/24 15:37 Completed CV. echo complete* [id number] Routine Ultrasound 06/21/24 12:39 Completed Pending at discharge Category Date Time Status HIDE SPLITTER request for service Routine Exams 06/23/24 05:36 Taken Radiology Impressions Chest X-Ray 06/21/24 11:00 IMPRESSION: No acute pathology given technique. Laboratory Results WBC 9.05 10^3/uL (3.29-11.43) 06/22/24 02:38 RBC 3.59 10^6/uL (3.85-5.65) L 06/22/24 02:38 Hgb 10.80 g/dL (11.27-16.99) L 06/22/24 02:38 Hct 34.8 % (36-47) L 06/22/24 02:38 MCV 96.9 fl (85-98) 06/22/24 02:38 MCH 30.1 pg (27-33) 06/22/24 02:38 MCHC 31.0 g/dL (30-55) 06/22/24 02:38 RDW 13.7 % (12.1-15.1) 06/22/24 02:38 Plt Count 439 10^3/cmm (157-399) H 06/22/24 02:38 MPV 9.1 fL (7.4-10.4) 06/22/24 02:38 Neut % (Auto) 51.0 % 06/22/24 02:38 Lymph % (Auto) 31.7 % 06/22/24 02:38 [place]ergus % (Auto) 8.3 % 06/22/24 02:38 Eos % (Auto) 6.5 % 06/22/24 02:38 Baso % (Auto) 0.7 % 06/22/24 02:38 Neut # (Auto) 4.62 10^3/uL (1.8-7.7) 06/22/24 02:38 Lymph # (Auto) 2.9 10^3/uL (0.8-4.8) 06/22/24 02:38 [place]ergus # (Auto) 0.8 10^3/uL (0.2-0.9) 06/22/24 02:38 Eos # (Auto) 0.6 10^3/uL (0.0-0.8) 06/22/24 02:38 Baso # (Auto) 0.1 10^3/uL (0.0-0.1) 06/22/24 02:38 Nucleated RBC % (auto) 0 % 06/22/24 02:38 Nucleated RBCs # 0.0 /100WBC 06/22/24 02:38 PT 12.20 SECONDS (12.1-14.9) 06/21/24 11:30 INR 0.85 (0.8-1.2) 06/21/24 11:30 D-Dimer 0.43 ug/mLFEU (0-0.59) 06/21/24 11:30 Sodium 140 mmol/L (136-145) 06/23/24 05:52 Potassium 4.0 mmol/L (3.5-5.1) 06/23/24 05:52 Chloride 101 mmol/L (98-107) 06/23/24 05:52 Carbon Dioxide 26 mmol/L (22-29) 06/23/24 05:52 Anion Gap 17.0 (5-19) 06/23/24 05:52 BUN 23 mg/dL (6-20) H 06/23/24 05:52 Creatinine 0.7 mg/dL (0.5-0.9) 06/23/24 05:52 GFR Calculation 89.7 mL/min (90-130) L 06/23/24 05:52 Glucose 96 mg/dL (65-115) 06/23/24 05:52 POC Glucose 76 mg/dL (70-110) 06/23/24 10:44 Calculated Osmolality 294 mOsm/kg (285-295) 06/23/24 05:52 Calcium 9.2 mg/dL (8.5-10.5) 06/23/24 05:52 Magnesium 2.1 mg/dL (1.7-2.3) 06/22/24 02:38 Total Bilirubin 0.2 mg/dL (0.15-1.2) 06/21/24 11:30 AST 18 U/L (0-32) 06/21/24 11:30 ALT 15 U/L (0-33) 06/21/24 11:30 Alkaline Phosphatase 59 U/L (35-105) 06/21/24 11:30 Troponin T Baseline 11 ng/L (0-10) H 06/21/24 11:30 Troponin T 120 Minute 11.49 ng/L (0-10) H 06/21/24 12:51 Delta Troponin T 0.49 ABS# (0-10) 06/21/24 12:51 Troponin T Hi Sens 6Hr 10.93 ng/L (0-10) H 06/21/24 17:34 Troponin T Hi Sens 6Hr Delta -0.07 ng/L (0-12) L 06/21/24 17:34 NT-Pro-B Natriuret Pep 867 pg/mL (0-125) H 06/21/24 11:30 Total Protein 6.8 g/dL (6.6-8.7) 06/21/24 11:30 Albumin 4.0 g/dL (3.5-5.2) 06/21/24 11:30 Globulin 2.8 g/dL (1.3-4.6) 06/21/24 11:30 Lipase 31 U/L (13-60) 06/21/24 11:30 HCG, Qual Negative (Negative) 06/21/24 11:30 Vitals Last Vital Signs Temp 97.7 F 06/23/24 11:38 Pulse 74 06/23/24 14:00 Resp 14 06/23/24 14:00 BP 106/84 06/23/24 13:15 Pulse Ox 99 06/23/24 14:00 O2 Del Method Room Air 06/23/24 08:05 FiO2 21 06/23/24 00:15 Discharge Plan Discharge Patient Disposition: Home Condition: Stable Prescriptions: New metoprolol succinate 25 mg Tablet Extended Release 24 Hr 12.5 mg PO DAILY Qty: 60 0RF Continued ipratropium bromide 0.02 % solution 2.5 ml inhalation Q6H PRN (Reason: Shortness Of Breath) multivitamin [Multiple Vitamins] Tablet 1 tab PO DAILY potassium chloride 10 mEq Tablet Extended Release 10 meq PO DAILY PRN (Reason: while taking lasix) azathioprine 50 mg Tablet See Rx Instructions .ROUTE .COMPLEX Rx Instructions: Take 100 by mouth in the morning and 150mg in the evening. omeprazole 40 mg Capsule,Delayed Release(Dr/Ec) 40 mg PO DAILY tramadol 50 mg Tablet 50 mg PO Q4H PRN (Reason: Pain) lisinopril 30 mg Tablet 30 mg PO DAILY hydrochlorothiazide 25 mg Tablet 25 mg PO DAILY mupirocin 2 % Ointment 1 applic TOPICAL PRN PRN (Reason: skin irritaion) furosemide [Lasix] 20 mg Tablet 20 mg PO DAILY PRN (Reason: Edema) epinephrine 0.3 mg/0.3 mL auto-injector See Rx Instructions .ROUTE .COMPLEX Rx Instructions: use 1 pen as directed prn insulin aspart U-100 [Novolog FlexPen U-100 Insulin] 100 unit/mL (3 mL) Insulin Pen See Rx Instructions .ROUTE .COMPLEX Rx Instructions: sliding scale subcutaneously as directed insulin glargine [Lantus Solostar U-100 Insulin] 100 unit/mL (3 mL) Insulin Pen 50 unit SUBCUT BEDTIME calcium carbonate-vitamin D3 [Calcium 600 with Vitamin D3] 600 mg(1,500mg) - 500 unit Capsule 1 cap PO DAILY Humira(CF) Pen 40 mg/0.4 mL Pen Injector Kit 40 mg SUBCUT Q7D Rx Instructions: ON THURSDAY tizanidine 4 mg Tablet 8 mg PO QPM PRN (Reason: Muscle Pain) gabapentin 300 mg Capsule 300 mg PO TID fluticasone propionate 50 mcg/actuation [place],Suspension 1 spray INTRANASAL BID PRN (Reason: Nasal Congestion) duloxetine 60 mg capsule,delayed release(DR/EC) 60 mg PO BID Rx Instructions: along with 20mg in the morning. montelukast 10 mg tablet 10 mg PO DAILY magnesium 200 mg Tablet 200 mg PO DAILY albuterol sulfate [Ventolin HFA] 90 mcg/actuation HFA aerosol inhaler 2 inh inhalation Q6H PRN (Reason: shortness of breath or wheezing) Qty: 6.7 0RF meloxicam 15 mg tablet 15 mg PO DAILY doxycycline hyclate 100 mg tablet 100 mg PO BID Ozempic 1 mg/dose (4 mg/3 mL) pen injector 1 mg SUBCUT Q7D Rx Instructions: Mondays atorvastatin 20 mg tablet 20 mg PO QPM Discontinued duloxetine 20 mg capsule,delayed release(DR/EC) See Rx Instructions .ROUTE .COMPLEX Rx Instructions: TAKE ONE CAPSULE BY MOUTH IN THE MORNING ONLY, ALONG WITH 60 MG DOSE. Discharge Orders: Discharge Order (Routine); Ordered 06/23/24 Ordered By: Stephen Perez Referrals: Eloisa Hart FNP [Nurse Practitioner] - 07/07/24 3:00 pm Katy Holm FNP [Primary Care Provider] - 07/06/24 1:30 pm Discharge Diet: Cardiac and Diabetic Discharge Activity: Increase activity as tolerated Patient Instructions: Asthma - Adult, Metoprolol (By mouth), Heart Failure (DC), Chest Pain (DC), Obesity (DC), Opioid Safety Activity Restrictions/Additional Instructions: figure out your BMR online with BMR calculator. It changes as your age and wt changes. Do this calculation weekly. Eat fewer than the calories indicated on BMR calculator for baseline. Count your calories and if you lose more than 3 lbs a week increase your calories to goal wt loss 2 lbs a week. Exercise low exertion. If you get chest pain or dyspnea slow your exercise to slow your heart rate. If discomfort does not resolve in 5 mins of rest come to hospital Discharge Attestations Time Spent in Discharge Care*: greater than 30 min Status at Discharge: Cognitive status at discharge: cognitively intact , Behavioral status at discharge: [facility] , Quality Metrics Clinical Quality Measures [ No reported AMI, CVA or VTE this stay] Coding Level of Care Code Acute Code for Chg Fwd Diagnoses Chest pain, unspecified type R07.9 Chest pain type: unspecified Acute on chronic congestive heart failure, unspecified heart failure type I50.9 Heart failure type: unspecified Type 2 diabetes mellitus without complication, with long-term current use of insulin E11.9; Z79.4 Diabetes mellitus termite control servicer insulin use: with termite control servicer use Diabetes mellitus complication status: without complication Hypercholesteremia E78.00 HOCM (hypertrophic obstructive cardiomyopathy) I42.1 Mitral valve regurgitation I34.0 Morbid obesity with BMI of 40.0-44.9, adult E66.01; Z68.41
== END 2024-06-23 16:48 | disposition home or self-care (01) ==
LOC: ER 12:43 → ER IP 17:18 → MEDSURG 19:01 → ER IP 06-22 09:50 → CSU 06-23 14:29 → MEDSURG 06-29 11:12
PROVIDERS: Internal Medicine Cardiovascular Disease; Admitting Provider Internal Medicine; Emergency Provider Emergency Medicine; PCP Nurse Practitioner Family; Visit Provider Internal Medicine
DX: I42.1 Obstructive hypertrophic cardiomyopathy (principal); I34.0 Nonrheumatic mitral (valve) insufficiency; E78.5 Hyperlipidemia, unspecified; L93.0 Discoid lupus erythematosus; Z87.891 Personal history of nicotine dependence; I50.9 Heart failure, unspecified; J45.901 Unspecified asthma with (acute) exacerbation; Z82.49 Family history of ischemic heart disease and other diseases of the circulatory system; E78.00 Pure hypercholesterolemia, unspecified; E11.9 Type 2 diabetes mellitus without complications; I11.0 Hypertensive heart disease with heart failure; E66.01 Morbid (severe) obesity due to excess calories; Z68.41 Body mass index [BMI] 40.0-44.9, adult; Z79.899 Other long term (current) drug therapy; Z79.4 Long term (current) use of insulin; Z88.8 Allergy status to other drugs, medicaments and biological substances; Z88.2 Allergy status to sulfonamides; Z88.5 Allergy status to narcotic agent
CPT/HCPCS: 36415; 36416; 71045; 78452; 80048; 80053; 82962; 83690; 83735; 83880; 84484; 84703; 85025; 85378; 85610; 93005; 93017; 93306; 93454; 94660; 96372; 96374; 96375; 99152; 99153; 99285; A9500; C1769; C1887; C1894; G0378; J1200; J1644; J1650; J1815; J2250; J2470; J2785; J3010; J3490; J7030; Q9967

== ENCOUNTER 2025-01-06 17:33 | Emergency (ER) | payer MEDICARE, MEDICAID, SELFPAY ==
[2025-01-06 17:38] VITALS: BP 156/79; PULSE 75; RESP 20; TEMP 36.7; O2SAT 97; BMI 48.6
--- OUTSIDE RECORDS SUMMARY | 2025-01-06 17:41 | XMS_ITS | Encounter Summary ---
Author Organization [facility] Address [address] [place] [address] Care Team Providers Care Pattern Perforating Machine Operator Name Role Phone Caity Echols DO Primary Care Provide r Unavailable Encounter Details Date Type Department Care Team (Latest Contact Info) Description 10/04/1997 Outpatient Historical [facility] Deedee Thompson, Rodger Morgan MD [address], [address] [place] [address] Follow-up examination following surgery (Primary Dx) Social History Tobacco Use Types Packs/Day Years Used Date Smoking Tobacco: Never Assessed Comments Unknown Sex and Gender Information Value Date Recorded Sex Assigned at Not on file Legal Sex Female 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
--- OUTSIDE RECORDS SUMMARY | 2025-01-06 17:41 | XMS_ITS | Encounter Summary ---
Author Organization [facility] Address [address] [place] [address] Care Team Providers Care Crown Assembly Machine Operator Name Role Phone Caity Echols DO Primary Care Provide r Unavailable Encounter Details Date Type Department Care Team (Latest Contact Info) Description 12/17/1999 Outpatient Historical [facility], SUPERVISOR BAKING & INFERTILITY Shaun Calle MD NO ADDRESS ON FILE Gynecologic examination (Primary Dx); Irregular menstruation Social History Tobacco Use Types Packs/Day Years Used Date Smoking Tobacco: Never Assessed Comments Unknown Sex and Gender Information Value Date Recorded Sex Assigned at Not on file 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
--- OUTSIDE RECORDS SUMMARY | 2025-01-06 17:41 | XMS_ITS | Encounter Summary ---
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 & INFERTILITY Shaun Calle MD NO ADDRESS ON FILE Absence of menstruation (Primary Dx) Social History Tobacco Use Types Packs/Day Years Used Date Smoking Tobacco: Never Assessed Comments Unknown Sex and Gender Information Value Date Recorded Sex Assigned at Not on file Legal Sex Female 5:10 AM VP DESIGN Gender Identity Not on file Sexual Orientation Not on file documented as of this encounter Plan of Treatment Not on file documented as of this encounter Visit Diagnoses Diagnosis Absence of menstruation- Primary documented in this encounter Care Teams Insurance Examining Clerk Relationship Specialty Start Date End Date Caity Echols DO PCP - General Family Practice 03/22/13 documented as of this encounter
--- OUTSIDE RECORDS SUMMARY | 2025-01-06 17:41 | XMS_ITS | Encounter Summary ---
Author Organization [facility] Address [address] [place] [address] Care Team Providers Care Construction Site Crossing Guard Name Role Phone Caity Echols DO Primary Care Provide r Unavailable Encounter Details Date Type Department Care Team (Latest Contact Info) Description 07/18/2002 Outpatient Historical [facility] [address] [phone] Anisha Prieto MD [address] [place] [phone] DYSURIA (Primary Dx) Social History Tobacco Use Types Packs/Day Years Used Date Smoking Tobacco: Never Assessed Comments Unknown Sex and Gender Information Value Date Recorded Sex Assigned at Not on file Legal Sex Female 5:10 AM TRANSIT DRIVER Gender Identity Not on file Sexual Orientation Not on file documented as of this encounter Plan of Treatment Not on file documented as of this encounter Visit Diagnoses Diagnosis Dysuria- Primary documented in this encounter Care Teams Construction Site Crossing Guard Relationship Specialty Start Date End Date Caity Echols DO PCP - General Family Practice 03/22/13 documented as of this encounter
--- OUTSIDE RECORDS SUMMARY | 2025-01-06 17:41 | XMS_ITS | Encounter Summary ---
Author Organization [facility] Address [address] [place] [address] Care Team Providers Care Reverberatory Furnace Operator Name Role Phone Caity Echols DO Primary Care Provide r Unavailable Encounter Details Date Type Department Care Team (Latest Contact Info) Description 12/17/1999 Outpatient Historical [facility], WET PROCESS MILLER HEAD ASSISTANT & INFERTILITY Shaun Calle MD NO ADDRESS ON FILE Gynecologic examination (Primary Dx) Social History Tobacco Use Types Packs/Day Years Used Date Smoking Tobacco: Never Assessed Comments Unknown Sex and Gender Information Value Date Recorded Sex Assigned at Not on file Legal Sex Female 5:10 AM BUYER PLANNER Gender Identity Not on file Sexual Orientation Not on file documented as of this encounter Plan of Treatment Not on file documented as of this encounter Visit Diagnoses Diagnosis Gynecologic examination- Primary Gynecological examination documented in this encounter Care Teams Reverberatory Furnace Operator Relationship Specialty Start Date End Date Caity Echols DO PCP - General Family Practice 03/22/13 documented as of this encounter
--- OUTSIDE RECORDS SUMMARY | 2025-01-06 17:41 | XMS_ITS | Encounter Summary ---
Author Organization [facility] Address [address] [place] [address] Care Team Providers Care Soccer Referee Name Role Phone Caity Echols DO Primary Care Provide r Unavailable Encounter Details Date Type Department Care Team (Latest Contact Info) Description 09/19/1997 Outpatient Historical [facility] Karen Calvo MD NO ADDRESS ON FILE Missed (Primary Dx) Social History Tobacco Use Types Packs/Day Years Used Date Smoking Tobacco: Never Assessed Comments Unknown Sex and Gender Information Value Date Recorded Sex Assigned at Not on file Legal Sex Female 5:10 AM RISK MODELER Gender Identity Not on file Sexual Orientation Not on file documented as of this encounter Plan of Treatment Not on file documented as of this encounter Visit Diagnoses Diagnosis Missed - Primary documented in this encounter Care Teams Soccer Referee Relationship Specialty Start Date End Date Caity Echols DO PCP - General Family Practice 03/22/13 documented as of this encounter
--- OUTSIDE RECORDS SUMMARY | 2025-01-06 17:41 | XMS_ITS | Encounter Summary ---
Author Organization [facility] Address [address] [place] [address] Care Team Providers Care Cabin Service Agent Name Role Phone Caity Echols DO Primary Care Provide r Unavailable Encounter Details Date Type Department Care Team (Latest Contact Info) Description 08/09/1997 Outpatient Historical [facility] Deedee Thompson, Rodger Morgan MD [address], [address] [place] [address] Abn Pap Smear-Cervix (Primary Dx); examination or test Social History Tobacco Use Types Packs/Day Years Used Date Smoking Tobacco: Never Assessed Comments Unknown Sex and Gender Information Value Date Recorded Sex Assigned at Not on file 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
--- OUTSIDE RECORDS SUMMARY | 2025-01-06 17:41 | XMS_ITS | Encounter Summary ---
Author Organization [facility] Address [address] [place] [address] Care Team Providers Care Non Destructive Testing Supervisor Name Role Phone aCity Echols DO Primary Care Provide r Unavailable Encounter Details Date Type Department Care Team (Latest Contact Info) Description 08/29/1997 Outpatient Historical [facility] Deedee Thompson, Rodger Morgan MD [address], [address] [place] [address] Supervision of normal first (Primary Dx) Social History Tobacco Use Types Packs/Day Years Used Date Smoking Tobacco: Never Assessed Comments Unknown Sex and Gender Information Value Date Recorded Sex Assigned at Not on file 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
--- OUTSIDE RECORDS SUMMARY | 2025-01-06 17:41 | XMS_ITS | Encounter Summary ---
Author Organization [facility] Address [address] [place] [address] Care Team Providers Care Sewer Name Role Phone Caity Echols DO Primary Care Provide r Unavailable Encounter Details Date Type Department Care Team (Latest Contact Info) Description 08/29/1997 Outpatient Historical [facility] Deedee Thompson, Rodger Morgan MD [address], [address] [place] [address] Supervision of other normal (Primary Dx) Social History Tobacco Use Types Packs/Day Years Used Date Smoking Tobacco: Never Assessed Comments Unknown Sex and Gender Information Value Date Recorded Sex Assigned at Not on file 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
--- OUTSIDE RECORDS SUMMARY | 2025-01-06 17:41 | XMS_ITS | Encounter Summary ---
Author Organization [facility] Address [address] [place] [address] Care Team Providers Care Aoc Plans Intelligence Officer Name Role Phone Caity Echols DO Primary Care Provide r Unavailable Encounter Details Date Type Department Care Team (Latest Contact Info) Description 03/28/1998 Outpatient Historical [facility] Deedee Thompson, Rodger Morgan MD [address], [address] [place] [address] Absence of menstruation (Primary Dx); Urinary tract infection, site not specified Social History Tobacco Use Types Packs/Day Years Used Date Smoking Tobacco: Never Assessed Comments Unknown Sex and Gender Information Value Date Recorded Sex Assigned at Not on file 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
--- OUTSIDE RECORDS SUMMARY | 2025-01-06 17:41 | XMS_ITS | Encounter Summary ---
Author Organization [facility] Address [address] [place] [address] Care Team Providers Care Tube Former Operator Name Role Phone Caity Echols DO Primary Care Provide r Unavailable Encounter Details Date Type Department Care Team (Latest Contact Info) Description 06/13/2002 Outpatient Historical [facility] Medicine [address] [phone] Anisha Prieto MD [address] [place] [phone] URIN TRACT INFECTION NOS (Primary Dx); ALLERGY, UNSPECIFIED; SUPERVIS OTHER NORMAL PREG Social History Tobacco Use Types Packs/Day Years Used Date Smoking Tobacco: Never Assessed Comments Unknown Sex and Gender Information Value Date Recorded Sex Assigned at Not on file 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
--- OUTSIDE RECORDS SUMMARY | 2025-01-06 17:41 | XMS_ITS | Clinical Summary ---
Author Organization [facility] Address [address] [place] [address] Care Team Providers Care Hims Clerk Name Role Phone Caity Echols [place] Primary Care Provide r Unavailable Allergies Active Allergy Reactions Criticality Noted Date Comments Oxycodone Rash Low 03/22/2013 Sertraline Rash,Itching Low 04/28/2013 Vilazodone Abdominal Pain,Headache Low 04/25/2013 Medications norgestrel-ethin yl estradiol (LO-OVRAL, 28,) 0.3-30 mg-mcg TabletIndication s:Amenorrhea Take 1 Tab by mouth daily. 1 Package 6 03/22/2013 Active citalopram (CELEXA) 20 mg tablet Take 2 Tabs by mouth daily at bedtime. 60 Tab 2 06/27/2013 Active Active Problems Problem Noted Date Diagnosed Date Depression with anxiety 03/18/2011 Family History Medical History Relation Name Comments High Cholesterol Brother Hypertension Brother Healthy Daughter Diabetes Father Heart Disease Father High Cholesterol Father Hypertension Father Diabetes Maternal Grandfather Heart Disease Maternal Grandfather High Cholesterol Maternal Grandfather Hypertension Maternal Grandfather Stroke Maternal Grandfather Melanoma Maternal Grandmother Hypertension Mother Diabetes Paternal Grandmother Heart Disease Paternal Grandmother High Cholesterol Paternal Grandmother Hypertension Paternal Grandmother Healthy Son Relation Name Status Comments Brother Alive Daughter Alive Father Alive Maternal Grandfather Maternal Grandmother Alive Mother Alive Paternal Grandfather Alive Paternal Grandmother Alive Son Alive Social History Tobacco Use Types Packs/Day Years Used Date Smoking Tobacco: Former Cigarettes Q uit: 02/20/2012 Smokeless Tobacco: Former Alcohol Use Standard Drinks/Week Comments No 0 (1 standard drink = 0.6 oz pur e alcohol) Comments Unknown Sex and Gender Information Value Date Recorded Sex Assigned at Not on file 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 Sex Female 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 Gender Identity Not on file Sexual Orientation Not on file Occupation Industry Job Start Date Job End Date Not on file Not on file Not on file Not on file Last Filed Vital Signs Vital Sign Reading Time Taken Comments Blood Pressure 118/64 03/22/2013 4:10 PM FLAT SORTER PROCESSOR Pulse 77 03/22/2013 4:10 PM FLAT SORTER PROCESSOR Temperature 36.7 C (98 F) 03/22/2013 4:10 PM FLAT SORTER PROCESSOR Respiratory Rate 18 03/22/2013 4:10 PM FLAT SORTER PROCESSOR Oxygen Saturation 98% 03/22/2013 4:10 PM FLAT SORTER PROCESSOR Inhaled Oxygen Concentration - - Weight 107 kg (236 lb) 03/22/2013 4:10 PM FLAT SORTER PROCESSOR Height 154.9 cm (5' 1 ) 03/22/2013 4:10 PM FLAT SORTER PROCESSOR Body Mass Index 44.59 03/22/2013 4:10 PM FLAT SORTER PROCESSOR Plan of Treatment Health Maintenance Due Date Last Done Comments DIABETES ANNUAL FOOT EXAM 1994 DIABETES ANNUAL RETINAL EXAM 1994 DIABETES MICROALBUMIN ANNUAL SCREEN 1994 LDL CHOLESTEROL ANNUAL 1994 DTAP/TDAP/TD VACCINES (1 - Tdap) 10/06/1995 HEPATITIS B VACCINES (1 of 3 - 19+ 3-dose series) 10/06/1995 HPV/Cotest (21-29) 1997 HPV/Cotest (30-65) 2006 CERVICAL CANCER SCREENING 03/22/2016 PAP SMEAR 03/22/2016 03/22/2013, 08/12/1999, 08/09/1997 BREAST CANCER SCREENING 2016 DIABETES HBA1C Q 6 MONTHS 11/22/2020 05/25/2020 COLORECTAL SCREENING 2021 Colorectal Cancer Screening 2021 FIT-DNA Q 3 years 2021 FIT/FOBT Q 1 year 2021 Flex Sig/CT Colonography Q 5 years 2021 INFLUENZA VACCINE (#1) 2024 Procedures Procedure Name Priority Date/Time Associated Diagnosis Comments CERV/VAG CYTOPATH, THIN PREP Routine 03/22/2013 6:40 AM FLAT SORTER PROCESSOR from Last 3 Months or Most Recently Relevant to Health Maintenance Results * CERVICAL OR VAGINAL CYTOPATH, THIN PREP (03/22/2013 6:40 AM FLAT SORTER PROCESSOR) PATHOLOGY/CY TOLOGY REPORT [facility] Anatomic Pathology Dept [address] [facility] [address] Patient: FARIHA URIARTE Accn No: [id number] , [id number] Collected: 03/22/2013 6:40:00 AM All cases except those with a DP prefix are performed by pathologists from [facility]. Case type DP is performed by Dr. Stephan Seo, [facility], [facility] [place], [address], [address], [place] [address] (CLIA #[id number]) (Ph. [phone]). CYTOLOGY THREAD CUTTER FINAL REPORT - - THIN PREP PAP History Specimen Type: Endocervical LMP: 11-10-12 Previous Pap History: NIL AMENORRHEA Specimen Adequacy Satisfactory for interpretation. The smear shows sufficient numbers of endocervical or metaplastic cells. Diagnosis NEGATIVE FOR INTRAEPITHELIAL LESION OR MALIGNANCY. (Previously noted as Within Normal Limits) Leather Production Artisan/ EDR Pathologist: 03/31/13 Completed by: ADITYA DRISCOLL BSCT (ASCP) (Electronically signed by) 03/31/13 Comment Routine follow-up is suggested. Important Information About PAP Smears The Pap smear is associated with a low but well-documented and probably irreducible false negative rate of up to 10%. Additionally, the false positive rate for a diagnosis of invasive carcinoma or HSIL has been estimated to be approximately 1-10%. Therefore, any visible lesion on the cervix should be biopsied regardless of Pap smear findings. HPV Testing off the Thin Prep vial can be done as a means of further evaluating a Thin Prep Report. For information about ordering the HPV test, phone Virology at . Treatment or follow-up recommendations (if any) that are contained within this report are based upon general recommendations as contained in 2001 Consensus Guidelines For Cervical Cytological Abnormalities JENNIFER: September 01, 2001, and are provided as a general guideline rather than as a specific recommendation. Final decisions about the most appropriate treatment and follow-up should be made on an individualized basis by the treating physician in consultation with his/her patient. [facility] 03/22/2013 6:40 AM FLAT SORTER PROCESSOR Raoul Null CRITICAL CARE TRANSPORT NURSE PATHOLOGY/CYTOLOGY ORDERABLES Edited Result - Final INTERFACE SYSTEM Refer to clinic/hospital department [facility] CLIA# [id number] [address] [place] [address] from Last 3 Months or Most Recently Relevant to Health Maintenance Insurance [facility] MEDIC[facility] PART A AND B Care Teams Hims Clerk Relationship Specialty Start Date End Date Caity Echols DO PCP - General Family Practice 03/22/13
--- OUTSIDE RECORDS SUMMARY | 2025-01-06 17:41 | XMS_ITS | Encounter Summary ---
Author Organization [facility] Address [address] [place] [address] Care Team Providers Care Application Dba Name Role Phone Caity Echols DO Primary Care Provide r Unavailable Encounter Details Date Type Department Care Team (Latest Contact Info) Description 07/18/2002 Outpatient Historical [facility] Medicine [place] [address] [phone] Sandra Ward, [facility] [address] [address] DYSURIA (Primary Dx) Social History Tobacco Use Types Packs/Day Years Used Date Smoking Tobacco: Never Assessed Comments Unknown Sex and Gender Information Value Date Recorded Sex Assigned at Not on file 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
--- NOTE | 2025-01-06 17:42 | ECG_ITS ---
[facility] Test Date: 2025-01-06 Pat Name: Fariha Beard Department: Room: Gender: Female Technical Account Manager: : 1975 Requested By: Raffy Tracy Order Number: [id number] Olivia MD: Vin Muñiz M.D. Measurements Intervals [place] Rate: 64 P: 25 VA: 174 QRS: 56 QRSD: 88 T: 214 QT: 411 QTc: 425 Interpretive Statements SINUS RHYTHM ST DEVIATION AND MODERATE T-WAVE ABNORMALITY, CONSIDER LATERAL ISCHEMIA [-0.1+ mV T-WAVE IN I/aVL/V5/V6] ST DEVIATION AND MODERATE T-WAVE ABNORMALITY, CONSIDER INFERIOR ISCHEMIA [-0.1+ mV T-WAVE IN II/aVF] Compared to ECG 06/21/2024 16:37:39 No significant changes Electronically Signed On 01-06-2025 22:36:17 CDT by Vin Muñiz M.D. [email or web address]
--- NOTE | 2025-01-06 18:55 | XRR_ITS ---
PROCEDURE INFORMATION: Exam: XR Chest Exam date and time: 01/06/2025 8:21 PM Age: 49 years old Clinical indication: Shortness of breath; Additional info: SOB TECHNIQUE: Imaging protocol: Radiologic exam of the chest. Views: 1 view. COMPARISON: CR XR chest 1V portable [id number] 06/21/2024 11:10 AM FINDINGS: Lungs: Unremarkable. No consolidation. Pleural spaces: Unremarkable. No pleural effusion. No pneumothorax. Heart/Mediastinum: Unremarkable. No cardiomegaly. Bones/joints: Unremarkable. XR/XR chest 1V portable [id number] IMPRESSION: No acute findings.
--- NOTE | 2025-01-06 20:45 | W.ED.EXTPRO ---
HPI - Extremity Problem General: Chief complaint: Extremity Problem,Nontraumatic Stated complaint: generalized swelling Time Seen by Provider: 01/06/25 20:20 History of Present Illness: Patient is a 49-year-old female who presents to the emergency department with complaints of shortness of breath, stating she can't seem to get air in or out. She also reports generalized pain, including chest pain, hand pain, arm pain, leg pain. The patient reports significant fluid retention with an 18-pound weight gain over the past two days.The patient denies cough productivity, fever, or other associated symptoms. She has been using her inhaler while in the waiting room without relief. The patient appears to be in moderate distress and expresses significant frustration with her medical care. She mentions that she has been recommended for home oxygen therapy. Related Data Home Medications ?Medication ?Instructions ?Recorded ?Confirmed adalimumab 40 mg/0.4 mL 40 mg SUBCUT Q7D 06/08/19 06/21/24 subcutaneous pen kit (Humira(CF) Pen) azathioprine 50 mg tablet See Rx Instructions .Route .COMPLEX 06/08/19 06/21/24 calcium 600 mg (as 1 cap PO DAILY 06/08/19 06/21/24 carbonate)-vitamin D3 12.5 mcg (500 unit) capsule (Calcium with Vit D3) epinephrine 0.3 mg/0.3 mL See Rx Instructions .Route .COMPLEX 06/08/19 06/21/24 injection, auto-injector hydrochlorothiazide 25 mg tablet 25 mg PO DAILY 06/08/19 06/21/24 insulin aspart U-100 100 unit/mL See Rx Instructions .Route .COMPLEX 06/08/19 06/21/24 (3 mL) subcutaneous pen (Novolog FlexPen U-100 Insulin aspart) insulin glargine 100 unit/mL (3 50 unit SUBCUT BEDTIME 06/08/19 06/21/24 mL) subcutaneous pen (Lantus Solostar U-100 Insulin) lisinopril 30 mg tablet 30 mg PO DAILY 06/08/19 06/21/24 multivitamin (Multiple Vitamins 1 tab PO DAILY 06/08/19 06/21/24 tablet) mupirocin 2 % topical ointment 1 applic topical PRN PRN skin 06/08/19 06/21/24 irritaion omeprazole 40 mg capsule,delayed 40 mg PO DAILY 06/08/19 06/21/24 release tramadol 50 mg tablet 50 mg PO Q4H PRN Pain 06/08/19 06/21/24 fluticasone propionate 50 1 spray intranasal BID PRN Nasal 10/26/20 06/21/24 mcg/actuation nasal Congestion spray,suspension gabapentin 300 mg capsule 300 mg PO TID 10/26/20 06/21/24 tizanidine 4 mg tablet 8 mg PO QPM PRN Muscle Pain 10/26/20 06/21/24 ipratropium bromide 0.02 % 2.5 ml inhalation Q6H PRN 12/10/20 06/21/24 solution for inhalation Shortness Of Breath duloxetine 60 mg capsule,delayed 60 mg PO BID 08/29/21 06/21/24 release magnesium 200 mg tablet 200 mg PO DAILY 08/29/21 06/21/24 montelukast 10 mg tablet 10 mg PO DAILY 08/29/21 06/21/24 atorvastatin 20 mg tablet 20 mg PO QPM 06/21/24 06/21/24 doxycycline hyclate 100 mg tablet 100 mg PO BID 06/21/24 06/21/24 meloxicam 15 mg tablet 15 mg PO DAILY 06/21/24 06/21/24 semaglutide 1 mg/dose (4 mg/3 mL) 1 mg SUBCUT Q7D 06/21/24 06/21/24 subcutaneous pen injector (Ozempic) Previous Rx's ?Medication ?Instructions ?Recorded albuterol sulfate 90 mcg/actuation 2 inh inhalation Q6H PRN shortness 08/29/21 aerosol inhaler (Ventolin HFA) of breath or wheezing #6.7 grams bumetanide 1 mg tablet 1 mg PO DAILY #30 tabs 06/23/24 metoprolol succinate 25 mg 12.5 mg (1/2 x 25 mg) PO DAILY #60 06/23/24 tablet,extended release 24 hr tabs potassium chloride 10 mEq 20 meq (2 x 10 mEq) PO DAILY PRN 06/23/24 tablet,extended release while taking lasix #30 tabs Allergies Allergy/AdvReac Type Severity Reaction Status Date / Time coconut Allergy ALGY-Bliste Verified 06/21/24 11:10 r doxycycline Allergy ALGY-Rash Verified 06/21/24 11:10 oxycodone (From Percocet) Allergy ALGY-Rash Verified 06/21/24 11:10 propoxyphene (From Allergy ALGY-Rash Verified 06/21/24 11:10 Darvocet-N) sulfamethoxazole (From Allergy ADR-Nausea Verified 06/21/24 11:10 Bactrim) trimethoprim (From Bactrim) Allergy ADR-Nausea Verified 06/21/24 11:10 PFSH ED PFSH: Medical History CHF exacerbation HOCM (hypertrophic obstructive cardiomyopathy) Immunocompromised Sarcoidosis Lupus (systemic lupus erythematosus) HTN (hypertension) Dyslipidemia Asthma exacerbation Asthma Type 2 diabetes mellitus Family History Denies family history of Diabetes CAD (coronary artery disease) Chronic kidney disease (CKD) Cancer Social History Smoking and tobacco/nicotine status: former use of tobacco/nicotine Alcohol intake: never Substance/Drug Use: never Lives independently: No Household members: family Housing: House Physical Exam Const: GENERAL APPEARANCE: cooperative; not frail appearing HENMT: COMMON NORMALS: normocephalic, atraumatic and Normal external nose present HEAD & SCALP: normocephalic and atraumatic FACE & SINUS: normal facial exam and face symmetric NOSE: Normal external nose present Eye: COMMON NORMALS: Equal, round and reactive pupils present and EOMs intact bilaterally PUPIL: Yes Equal, round and reactive pupils present Neck/C-Spine: GENERAL: Yes trachea midline Chest: CHEST: Yes Symmetrical chest wall rise Resp: COMMON NORMALS: clear to auscultation bilaterally EFFORT & INSPECTION: Yes tachypneic and Yes labored AUSCULTATION: clear to auscultation bilaterally Cardio: COMMON NORMALS: regular rate and regular rhythm RATE: regular rate RHYTHM: regular rhythm GI: COMMON NORMALS: Normal to inspection, nondistended, normoactive bowel sounds present Extremity: COMMON NORMALS: no pedal edema Neuro: KATHY COMA SCALE: document GCS findings Kathy coma scale eye opening: Spontaneous Kathy coma scale verbal response: Orientated [place] coma scale motor response: Obey commands [place] coma scale total score: 15 SENSORY EXAM: Yes extremities (intact) Psych: COMMON NORMALS: speech normal SPEECH: Yes normal speech Skin: COMMON NORMALS: no rashes or lesions noted GENERAL SKIN EXAM: no rashes or lesions noted Course Vital Signs: Vital signs: Vital Signs Temperature 98.1 F 01/06/25 17:38 Pulse Rate 71 01/06/25 23:36 Respiratory Rate 18 01/06/25 23:36 Blood Pressure 142/75 01/06/25 23:36 Pulse Oximetry 100 01/06/25 23:36 Oxygen Delivery Me thod Nasal Cannula 01/06/25 21:52 Oxygen Flow Rate 1.5 01/06/25 21:52 MDM - Extremity (Nontraumatic) Medical Decision Making Patient is short of breath. She has some chest discomfort. CBC and BMP are unremarkable. BNP is marginally elevated. Troponin is normal. EKG is nonacute. Chest x-ray is nonacute as well, although does have some peripheral vascularization in my opinion. She is given 80 mg of Lasix, and is voided 10 times. She is feeling better. She is not oxygen dependent at this point. Her blood pressure is much improved. She will be allowed discharge. She will double her Bumex dosing for the next 3 days, and then go back to her normal dosing of 1 mg. Lab Data 01/06/25 21:15 01/06/25 21:15 Radiology Impressions Chest X-Ray 01/06/25 18:55 IMPRESSION: No acute findings. Laboratory Results WBC 9.92 10^3/uL (3.29-11.43) 01/06/25 21:15 RBC 3.73 10^6/uL (3.85-5.65) L 01/06/25 21:15 Hgb 11.40 g/dL (11.27-16.99) 01/06/25 21:15 Hct 35.0 % (36-47) L 01/06/25 21:15 MCV 93.8 fl (85-98) 01/06/25 21:15 MCH 30.6 pg (27-33) 01/06/25 21:15 MCHC 32.6 g/dL (30-55) 01/06/25 21:15 RDW 13.7 % (12.1-15.1) 01/06/25 21:15 Plt Count 424 10^3/cmm (157-399) H 01/06/25 21:15 MPV 9.2 fL (7.4-10.4) 01/06/25 21:15 Neut % (Auto) 48.3 % 01/06/25 21:15 Lymph % (Auto) 30.1 % 01/06/25 21:15 [place] % (Auto) 9.4 % 01/06/25 21:15 Eos % (Auto) 9.6 % 01/06/25 21:15 Baso % (Auto) 0.8 % 01/06/25 21:15 Neut # (Auto) 4.79 10^3/uL (1.8-7.7) 01/06/25 21:15 Lymph # (Auto) 3.0 10^3/uL (0.8-4.8) 01/06/25 21:15 [place] # (Auto) 0.9 10^3/uL (0.2-0.9) 01/06/25 21:15 Eos # (Auto) 1.0 10^3/uL (0.0-0.8) H 01/06/25 21:15 Baso # (Auto) 0.1 10^3/uL (0.0-0.1) 01/06/25 21:15 Nucleated RBC % (auto) 0 % 01/06/25 21:15 Nucleated RBCs # 0.0 /100WBC 01/06/25 21:15 Sodium 139 mmol/L (136-145) 01/06/25 21:15 Potassium 4.0 mmol/L (3.5-5.1) 01/06/25 21:15 Chloride 104 mmol/L (98-107) 01/06/25 21:15 Carbon Dioxide 25 mmol/L (22-29) 01/06/25 21:15 Anion Gap 14.0 (5-19) 01/06/25 21:15 BUN 14 mg/dL (6-20) 01/06/25 21:15 Creatinine 0.7 mg/dL (0.5-0.9) 01/06/25 21:15 GFR Calculation 89.3 mL/min (90-130) L 01/06/25 21:15 Glucose 105 mg/dL (65-115) 01/06/25 21:15 Calculated Osmolality 289 mOsm/kg (285-295) 01/06/25 21:15 Calcium 9.1 mg/dL (8.5-10.5) 01/06/25 21:15 Magnesium 2.0 mg/dL (1.7-2.3) 01/06/25 21:15 Total Bilirubin 0.6 mg/dL (0.15-1.2) 01/06/25 21:15 AST 15 U/L (0-32) 01/06/25 21:15 ALT 14 U/L (0-33) 01/06/25 21:15 Alkaline Phosphatase 60 U/L (35-105) 01/06/25 21:15 Troponin T Baseline 9 ng/L (0-10) 01/06/25 21:15 Troponin T 120 Minute 10.13 ng/L (0-10) H 01/06/25 23:15 Delta Troponin T 1.13 ABS# (0-10) 01/06/25 23:15 NT-Pro-B Natriuret Pep 690 pg/mL (0-125) H 01/06/25 21:15 Total Protein 6.5 g/dL (6.6-8.7) L 01/06/25 21:15 Albumin 3.9 g/dL (3.5-5.2) 01/06/25 21:15 Globulin 2.6 g/dL (1.3-4.6) 01/06/25 21:15 All radiology interpretation(s) finalized by discharge Discharge Plan Discharge Patient Disposition: Home Clinical Impression: HOCM (hypertrophic obstructive cardiomyopathy) Chest pain Qualifiers: Chest pain type: unspecified Qualified Code(s): R07.9 - Chest pain, unspecified Condition: Stable Prescriptions: No Action ipratropium bromide 0.02 % solution 2.5 ml inhalation Q6H PRN (Reason: Shortness Of Breath) multivitamin [Multiple Vitamins] Tablet 1 tab PO DAILY azathioprine 50 mg Tablet See Rx Instructions .ROUTE .COMPLEX Rx Instructions: Take 100 by mouth in the morning and 150mg in the evening. omeprazole 40 mg Capsule,Delayed Release(Dr/Ec) 40 mg PO DAILY tramadol 50 mg Tablet 50 mg PO Q4H PRN (Reason: Pain) lisinopril 30 mg Tablet 30 mg PO DAILY hydrochlorothiazide 25 mg Tablet 25 mg PO DAILY mupirocin 2 % Ointment 1 applic TOPICAL PRN PRN (Reason: skin irritaion) epinephrine 0.3 mg/0.3 mL auto-injector See Rx Instructions .ROUTE .COMPLEX Rx Instructions: use 1 pen as directed prn insulin aspart U-100 [Novolog FlexPen U-100 Insulin] 100 unit/mL (3 mL) Insulin Pen See Rx Instructions .ROUTE .COMPLEX Rx Instructions: sliding scale subcutaneously as directed insulin glargine [Lantus Solostar U-100 Insulin] 100 unit/mL (3 mL) Insulin Pen 50 unit SUBCUT BEDTIME calcium carbonate-vitamin D3 [Calcium 600 with Vitamin D3] 600 mg(1,500mg) -500 unit Capsule 1 cap PO DAILY Humira(CF) Pen 40 mg/0.4 mL Pen Injector Kit 40 mg SUBCUT Q7D Rx Instructions: ON THURSDAY tizanidine 4 mg Tablet 8 mg PO QPM PRN (Reason: Muscle Pain) gabapentin 300 mg Capsule 300 mg PO TID fluticasone propionate 50 mcg/actuation [place],Suspension 1 spray INTRANASAL BID PRN (Reason: Nasal Congestion) duloxetine 60 mg capsule,delayed release(DR/EC) 60 mg PO BID Rx Instructions: along with 20mg in the morning. montelukast 10 mg tablet 10 mg PO DAILY magnesium 200 mg Tablet 200 mg PO DAILY albuterol sulfate [Ventolin HFA] 90 mcg/actuation HFA aerosol inhaler 2 inh inhalation Q6H PRN (Reason: shortness of breath or wheezing) Qty: 6.7 0RF meloxicam 15 mg tablet 15 mg PO DAILY doxycycline hyclate 100 mg tablet 100 mg PO BID Ozempic 1 mg/dose (4 mg/3 mL) pen injector 1 mg SUBCUT Q7D Rx Instructions: Mondays atorvastatin 20 mg tablet 20 mg PO QPM metoprolol succinate 25 mg Tablet Extended Release 24 Hr 12.5 mg PO DAILY Qty: 60 0RF bumetanide 1 mg tablet 1 mg PO DAILY Qty: 30 1RF potassium chloride 10 mEq Tablet Extended Release 20 meq PO DAILY PRN (Reason: while taking lasix) Qty: 30 1RF Discharge Orders: Discharge ED (Routine); Ordered 01/06/25 Ordered By: Trey Zhang Referrals: Katy Holm, TELEPHONE ASSEMBLER [Primary Care Provider, Nurse Practitioner] - 1-3 days Patient Instructions: Pulmonary Edema (ED), Opioid Safety, Pain Management, Patient Portal & Eh Instructions Activity Restrictions/Additional Instructions: Double your Bumex dosing, take 1 mg twice daily for the next 3 days, then back to 1 mg daily. Return for worsening chest discomfort, shortness of breath, fever, or any other concerning symptoms. Call your doctor on Thursday or Thursday for a follow-up appointment. Print Language: [place] Coding Level of Care Code ED [employer] Model Maker for Lou Ley
--- NOTE | 2025-01-06 20:55 | ECG_ITS ---
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 Measurements Intervals [place] Rate: 60 P: 176 MN: 165 QRS: 165 QRSD: 93 T: 23 QT: 425 QTc: 425 Interpretive Statements SINUS RHYTHM T WAVE INVERSION IN ANTEROLATERAL LEADS Electronically Signed On 01-06-2025 22:49:56 CDT by Vin Muñiz M.D. [email or web address]
[2025-01-06 21:21] LABS: Hematocrit 35.0 % (36-47); Hemoglobin 11.40 g/dL (11.27-16.99); Mean Corpuscular HGB Conc 32.6 g/dL (30-55); Mean Corpuscular Hemoglobin 30.6 pg (27-33); Mean Corpuscular Volume 93.8 fl (85-98); Nucleated Red Blood Cells % 0 %; Platelet Count 424 10^3/cmm (157-399); Red Blood Count 3.73 10^6/uL (3.85-5.65); White Blood Count 9.92 10^3/uL (3.29-11.43)
[2025-01-06 21:37] VITALS: RESP 16; O2SAT 100
[2025-01-06] MEDS: morphine 4 mg/mL SDV 1 mL IVP (21:37)
[2025-01-06 21:38] VITALS: BP 135/79
[2025-01-06] MEDS: ondansetron 2 mg/ML SDV 2 mL 4 MG IVP (21:38)
[2025-01-06] MEDS: FUROsemide 10 mg/mL SDV 10mL 80 MG IVP (21:38)
[2025-01-06] MEDS: nitroglycerin 1 gm/inch oint Pkt 1.5 INCH TOPICAL (21:38)
[2025-01-06 21:44] LABS: Troponin(5th) Baseline 9 ng/L (0-10)
[2025-01-06 21:52] VITALS: BP 157/79; PULSE 64; RESP 22; O2SAT 100
[2025-01-06 22:00] LABS: Alanine Aminotransferase 14 U/L (0-33); Albumin Level 3.9 g/dL (3.5-5.2); Alkaline Phosphatase 60 U/L (35-105); Anion Gap 14.0 (5-19); Aspartate Amino Transferase 15 U/L (0-32); Blood Urea Nitrogen 14 mg/dL (6-20); Calcium 9.1 mg/dL (8.5-10.5); Carbon Dioxide 25 mmol/L (22-29); Chloride 104 mmol/L (98-107); Creatinine Clr Calc Pharmacy 121.5240; Globulin 2.6 g/dL (1.3-4.6); Glucose 105 mg/dL (65-115); Magnesium 2.0 mg/dL (1.7-2.3); NT Pro B Type Natriuretic Pept 690 pg/mL (0-125); Osmolality Calculated 289 mOsm/kg (285-295); Potassium 4.0 mmol/L (3.5-5.1); Sodium 139 mmol/L (136-145); Total Protein 6.5 g/dL (6.6-8.7)
[2025-01-06 23:28] VITALS: BP 139/77; PULSE 72; RESP 14; O2SAT 98
[2025-01-06 23:36] VITALS: BP 142/75; PULSE 71; RESP 18; O2SAT 100
[2025-01-07 00:33] LABS: Troponin 5 2HR 10.13 ng/L (0-10); Troponin 5 2HR Delta 1.13 ABS# (0-10)
== END 2025-01-07 00:16 | disposition home or self-care (01) ==
PROVIDERS: Emergency Provider Emergency Medicine; PCP Nurse Practitioner Family
DX: I42.1 Obstructive hypertrophic cardiomyopathy (principal); R07.9 Chest pain, unspecified; Z79.4 Long term (current) use of insulin; Z87.891 Personal history of nicotine dependence; E78.5 Hyperlipidemia, unspecified; E11.9 Type 2 diabetes mellitus without complications; I11.0 Hypertensive heart disease with heart failure; I50.9 Heart failure, unspecified
CPT/HCPCS: 36415; 71045; 80053; 83735; 83880; 84484; 85025; 93005; 96374; 96375; 99285; J1938; J2270; J2405; J9999